=== PATIENT | male | born 1945 | race Caucasian/White ===

== ENCOUNTER 2016-11-24 09:33 | Emergency (ER) | payer MEDICARE, OTHER ==
--- NOTE | 2016-11-24 11:13 | ERNOTE ---
Lower Extremity HPI - Narrative Date of Service: 11/24/16 - General Lower Extremities Pain: leg: right Time Seen by Provider: 11/24/16 11:13 Source: patient, RN notes reviewed Exam Limitations: other - poor historian - Immun/Allergies/Home Medications Immunizations: IMMUNIZATION HX Immunizations Up to Date Yes History of Influenza Vaccine Yes Hx Pneumococcal Vaccination Yes Allergies/Adverse Reactions: Allergies Allergy/AdvReac Type Severity Reaction Status Date / Time No Known Allergies Allergy Verified 12/28/15 18:36 Home Medications: HOME MEDICATIONS Furosemide [Lasix] 40 mg PO BID 12/28/15 [Last Taken 12/28/15 08:00] Metoprolol Tartrate [Lopressor] 50 mg PO BID 12/28/15 [Last Taken 12/28/15 08:00 ] Sertraline HCl [Zoloft] 100 mg PO DAILY 12/28/15 [Last Taken 12/27/15] Simvastatin [Zocor] 10 mg PO HS 12/28/15 [Last Taken 12/27/15] Spironolactone [Aldactone] 50 mg PO DAILY 12/28/15 [Last Taken 12/28/15 08:00] Zolpidem Tartrate 10 mg PO HS 12/28/15 [Last Taken Unknown] Dabigatran Etexilate Mesylate [Pradaxa] 150 mg PO BID #60 capsule 12/29/15 [ Last Taken Unknown] - History of Present Illness Narrative: 71 y/o male ambulatory to the ED for right calf pain and swelling that began 5 days ago. He had fallen a few days prior and attributed to symptoms to injury as he did sustain an abrasion to the right calf. He denies any fever or chills. According to his medication list, he is to be on Pradaxa for Afib, but he stopped taking it some time ago when he read the side effects and got scared. [facility]. Date (Duration): 11/19/16 Method of Injury: Reports: fell Reason for Fall: Reports: unknown Loss of Consciousness: Reports: no loss of consciousness Other Injuries: Reports: none Subsequent Symptoms: Denies: sensory loss, numbness, motor loss Prior Treament: Denies: similar symptoms before Review of Systems - Review of Systems Constitutional: Present: fatigue. Absent: recent illness, fever, chills EYE: Present: no symptoms reported ENT: Present: no symptoms reported Respiratory: Absent: shortness of breath, cough Cardiology: Present: edema. Absent: chest pain, palpitations, syncope Gastrointestinal/Abdominal: Absent: nausea, vomiting, abdominal pain Genitourinary: Present: no symptoms reported Musculoskeletal: Present: muscle pain. Absent: joint pain, joint swelling Skin: Present: lesions. Absent: rash, change in color Neurological: Absent: dizziness/light-headedness, weakness, numbness Endocrine: Present: no symptoms reported Hematologic/Lymphatic: Absent: easy bruising, easy bleeding Psych: Present: no symptoms reported - Patient's Past Medical History Patient History - Medical: Arthritis, Obesity Patient History - Cardiac/Respiratory: Atrial Fibrillation, Hypertension, Hyperlipidemia, CPAP/BiPAP Home Use, Sleep Apnea Patient History - Cancer: Skin Patient History - Surgical Procedures: Appendectomy, Cholecystectomy, Total Hip Replacement, T & A, Other - Family History Mother Family History - Medical: , No pertinent hx Family History - Cardiac/Respiratory: CVA/Stroke Father Family History - Medical: , No pertinent hx Family History - Cardiac/Respiratory: CVA/Stroke - Social History Living Situations: spouse Smoking Status: Former smoker Alcohol Use: none Drug Use: none Physical Exam - Physical Exam General Appearance: Present: alert, no apparent distress, obese, other - somewhat disheveled Neck: Present: normal inspection, nontender, supple Respiratory: Present: no respiratory distress, normal breath sounds, no accessory muscle use, lungs clear Cardiovascular/Chest: Present: regular rate, rhythm, no murmur, normal peripheral pulses Extremity Exam: Present: normal range of motion, pedal edema, calf tenderness - Right, extremity edema - bilateral lower legs, ankles, feet but markedly worse in right calf. Absent: joint redness, joint swelling Neurological Exam: Present: alert, oriented, normal mood/affect, no motor/ sensory deficits Skin Exam: Present: normal color, warm/dry, other - small abrasion with mild ecchymosis to right calf ED Progress - Results and Orders Patient's Lab Results:: I have reviewed the patient's lab results. - Vital Signs Patient's Vital Signs:: I have reviewed the patient's vital signs. Vital Signs: Vital Signs 11/24/16 10:16 Temperature 36.4 C L Pulse Rate 62 Respiratory 14 Rate Blood Pressure 160/106 O2 Sat by Pulse 95 Oximetry - X-Ray X-Ray #1 X-Ray: tibula/fibula Interpretation: Reviewed by me X-ray Comments: Tibia/Fibula 2 View RT * No definable fracture lucency or cortical discontinuity. Degenerative changes of the right knee and ankle suggested. Diffuse skin and soft tissue swelling noted throughout the right lower leg. No evidence for soft tissue gas or radiopaque foreign body. IMPRESSION: 1. No acute fracture. 2. Diffuse skin and soft tissue swelling. Electronically signed by Dustin Hagen M.D.. - CT/Ultrasound CT/Ultrasound Narrative: US of right lower extremity shows no sonographic evidence of DVT - Progress/Reassessment Chief Complaint: Lower Extremity Pain/ Injury Progress:: Unchanged Plan - Plan Plan: Discussed lab and xray results. No elevation in WBC or redness in leg to support cellulitis, US negative for DVT, pain and swelling are likely d/t his fall. Will WOODROW wrap right lower leg. Discussed conservative treatment and f/u if symptoms worsen. Departure Clinical Impression: Right calf pain - Departure Disposition: Home self-care Condition: Good Instructions: Contusion, [id number] Additional Instructions: WOODROW wrap for support/compression Heat to sore areas Elevate leg whenever possible Tylenol for pain Follow up if symptoms worsen
[2016-11-24 11:34] LABS: Hematocrit 50.6 % (42.0-52.0); Mean Cell Volume 88.8 fl (78-100); Mean Corpuscular Hemoglobin 29.8 pg (27-31); Mean Corpuscular Hgb Conc 33.6 g/dl (32-36); Mean Platelet Volume 9.6 fl (6.0-9.5); Neutrophil # 6.9 K/mm3 (1.3-6.0); Neutrophil % 70.9 % (42-75.0); Platelet Count 169 K/mm3 (150-450); Red Cell Distribution Width 12.8 % (11.5-14.0); White Blood Count 9.8 K/mm3 (4.0-10.5)
[2016-11-24 11:48] LABS: INR 1.09 INR (0.90-1.10); Partial Thrombolplastin Time 26.8 Seconds (24-32); Prothrombin Time (Patient) 11.3 Seconds (9.4-11.4)
[2016-11-24 11:53] LABS: Albumin * 3.9 gm/dl (3.4-5.0); Anion Gap 12.4 mmol/L (6.8-13.8); BUN/Creatinine Ratio 12.5 (9.0-21.6); Bilirubin, Total 0.9 mg/dL (0.0-1.1); Ca. Corrected For Albumin 9.3 mg/dL (8.4-10.2); Calcium * 9.5 mg/dL (7.9-10.9); Carbon Dioxide 28.1 mmol/L (24-32.6); Potassium 4.5 mmol/L (3.4-4.6); Total Protein 7.5 gm/dL (6.2-8.2)
[2016-11-24 12:31] VITALS: BP 138/72
== END 2016-11-24 12:29 | disposition home or self-care (01) ==
LOC: ER 09:33
DX: M79.661 Pain in right lower leg (principal); Z85.828 Personal history of other malignant neoplasm of skin; Z87.891 Personal history of nicotine dependence

== ENCOUNTER 2017-02-26 16:24 | Emergency (ER) | payer MEDICARE, OTHER ==
--- NOTE | 2017-02-26 17:15 | ERNOTE ---
Lower Extremity HPI - Narrative Date of Service: 02/26/17 - General Lower Extremities Pain: hip: right, knee: left Time Seen by Provider: 02/26/17 16:46 Source: patient Exam Limitations: no limitations - Immun/Allergies/Home Medications Immunizations: IMMUNIZATION HX Immunizations Up to Date Yes History of Influenza Vaccine Yes Hx Pneumococcal Vaccination Yes Allergies/Adverse Reactions: Allergies Allergy/AdvReac Type Severity Reaction Status Date / Time No Known Allergies Allergy Verified 02/26/17 16:43 Home Medications: HOME MEDICATIONS Furosemide [Lasix] 40 mg PO BID 12/28/15 [Last Taken 12/28/15 08:00] Metoprolol Tartrate [Lopressor] 50 mg PO BID 12/28/15 [Last Taken 12/28/15 08:00 ] Sertraline HCl [Zoloft] 100 mg PO DAILY 12/28/15 [Last Taken 12/27/15] Simvastatin [Zocor] 10 mg PO HS 12/28/15 [Last Taken 12/27/15] Spironolactone [Aldactone] 50 mg PO DAILY 12/28/15 [Last Taken 12/28/15 08:00] Zolpidem Tartrate 10 mg PO HS 12/28/15 [Last Taken Unknown] Minoxidil 10 mg PO DAILY 02/26/17 [Last Taken Unknown] - History of Present Illness Narrative: patient states his legs are weaker than normal. Patient states that this has been accumulating for several weeks. Patient states he is more tired since he has started PT. Date (Duration): 02/26/17 Occurred: last week Location of Incident: home Method of Injury: Reports: no apparent injury Loss of Consciousness: Reports: no loss of consciousness Modifying Factors - (Improves): Reports: immobilization Modifying Factors - (Worsens): Reports: movement Associated Symptoms: Reports: other injuries - states his walking is unsteady more than normal Other Injuries: Reports: none Review of Systems - Review of Systems Constitutional: Present: malaise EYE: Present: no symptoms reported ENT: Present: no symptoms reported Respiratory: Present: no symptoms reported Cardiology: Present: no symptoms reported Gastrointestinal/Abdominal: Present: no symptoms reported Genitourinary: Present: no symptoms reported Musculoskeletal: Present: See HPI Skin: Present: no symptoms reported Neurological: Present: See HPI, weakness Endocrine: Present: no symptoms reported Hematologic/Lymphatic: Present: no symptoms reported Psych: Present: no symptoms reported - Patient's Past Medical History Patient History - Medical: Arthritis, Obesity Patient History - Cardiac/Respiratory: Hypertension, Hyperlipidemia, CPAP/BiPAP Home Use, Sleep Apnea Patient History - Cancer: Skin Patient History - Surgical Procedures: Appendectomy, Cholecystectomy, Total Hip Replacement, T & A, Other Patient History - Other: None - Family History Mother Family History - Medical: , No pertinent hx Family History - Cardiac/Respiratory: CVA/Stroke Father Family History - Medical: , No pertinent hx Family History - Cardiac/Respiratory: CVA/Stroke - Social History Living Situations: home Abuse History: No History of abuse Psych History: Current tx/ever been on anti-depressants or anti-anxiety meds Alcohol Use: none Drug Use: none - Immunizations Immunizations Up to Date: Yes Hx Pneumococcal Vaccination: Yes History of Influenza Vaccine: Yes Physical Exam - Physical Exam Narrative: Well-nourished 71-year-old male presents to emergency room for being tired after physical therapy and also states that his legs feel more weak than normal. States sometimes he also has muscle cramps on the days he has physical therapy. General Appearance: Present: wd/wn, alert, no apparent distress Eye Exam: Normal inspection: bilateral Ears, Nose, Throat: Present: normal ENT inspection, normal pharynx Neck: Present: normal inspection, nontender Respiratory: Present: no respiratory distress, normal breath sounds, lungs clear Cardiovascular/Chest: Present: regular rate, rhythm, normal peripheral pulses Peripheral Pulses: N=norm/S=strong/W=weak/B=bound/A=absent: Radial (R): Normal, Radial (L): Normal, Dorsalis-pedis (R): Normal, Dorsalis-pedis (L): Normal Gastrointestinal/Abdominal: Present: normal bowel sounds, nontender, soft Back Exam: Present: normal inspection, normal range of motion, no vertebral tenderness Extremity Exam: Present: normal except -, extremity edema - 3+ Neurological Exam: Present: alert, oriented, 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 Results and Orders: no acute findings - Vital Signs Vital Signs: Vital Signs 02/26/17 16:38 Temperature 36.9 C Pulse Rate 60 Respiratory 14 Rate Blood Pressure 150/80 O2 Sat by Pulse 95 Oximetry - EKG EKG read: Reviewed by me EKG Comments: interp by 1ED attending. no acute findings - CT/Ultrasound CT/Ultrasound Narrative: Findings: There is no acute intracranial hemorrhage, midline shift or mass effect detected. No hydrocephalus. Cisterns are unremarkable. There is atrophy. There is chronic microvascular ischemic disease change of the white matter. No depressed calvarial fractures. There is sinus disease. Impression: No acute intracranial process detected. Preliminary report was delivered to the emergency room via the [facility] teleradiology service at 7:50 PM on February 26, 2017. Electronically signed by Rashad Clinton M.D.. - Progress/Reassessment Chief Complaint: Lower Extremity Pain/ Injury Progress:: Unchanged Departure Clinical Impression: Exercise-induced leg cramps - Departure Disposition: Home self-care Condition: Stable Instructions: Leg Cramps Additional Instructions: Any previous home medications as directed. Follow up with her primary care physician regarding your leg cramps and weakness. Follow up with your physical therapist as well. The emergency room if any new symptoms arise or symptoms persist. Referrals: Richmond Thomas [Primary Care Provider] -
--- OUTSIDE RECORDS SUMMARY | 2017-02-26 17:16 | XMS REPORT | Continuity of Care Document ---
:1945 Author Organization [facility] ([facility]) Address [address] [place] [address] Phone [phone] Care Team Providers Name Role Phone Ctr, [facility] Med Primary Care Provider [phone] Source Comments This disclosure is being made pursuant to the Care Everywhere program, applicable federal and state laws, and may not contain all informaitonavailable regarding this patient.[facility] ([facility]) Active Allergies and Adverse Reactions No Known Allergies Current Medications Prescription Sig. Disp. Refills Start Date End Date Status metoPROLol succinate Take 50 mg by mouth Active 100 mg XL tablet 2 times daily. simvastatin 10 mg Take 25 mg by mouth Active tablet every evening. SERTraline 50 mg Take 100 mg by Active tablet mouth daily. lisinopril 10 mg Take 10 mg by mouth Active tablet daily. aspirin 81 mg EC Take 81 mg by mouth Active tablet daily. amoxicillin 500 mg Take 500 mg by Active capsule mouth 3 times daily. dabigatran (praDAXA) Take 150 mg by Active 150 mg capsule mouth 2 times daily. furosemide 40 mg Take 40 mg by mouth Active tablet daily. spironolactone 25 mg Take 25 mg by mouth Active tablet daily. zolpiDEM 10 mg tablet Take by mouth at Active bedtime as needed. HYDROcodone-acetamino Take 1 tablet by 30 tablet 0 08/25/2016 Active phen 5-325 mg per mouth every 4 hours tablet as needed for Pain. DO NOT EXCEED 3,000 MG ACETAMINOPHEN PER DAY FROM ALL SOURCES chlorhexidine 0.12 % Rinse with 10 ML 473 mL 0 08/25/2016 Active oral rinse for 30 seconds twice daily for 10 days. Swish and spit out excess. Nothing by mouth for 30 minutes. Active Problems Problem Noted Date Dental caries 08/04/2016 Social History Tobacco Use Types Packs/Day Years Used Date Light Tobacco Smoker Cigarettes 0.25 50 Smokeless Tobacco: Never Used Tobacco Cessation:Ready to Quit: No; Counseling Given: No Comments: Last Filed Vital Signs Vital Sign Reading Time Taken Blood Pressure 167/90 08/25/2016 8:55 AM CDT Pulse 61 08/25/2016 8:55 AM CDT Temperature 36.7 C (98.1 F) 08/25/2016 8:55 AM CDT Respiratory Rate 18 08/04/2016 11:22 AM CDT Height 1.88 m (6' 2") 08/25/2016 8:55 AM CDT Weight 136.7 kg (301 lb 5.9 oz) 08/25/2016 8:55 AM CDT Body Mass Index 38.68 08/25/2016 8:55 AM CDT Oxygen Saturation - - Plan of Care Health Maintenance Due Date Last Done Comments HCV Screening 1945 Hepatitis B Vaccine (1 of 3 - Primary Series) 1945 Tdap Vaccine 1958 Lipid Disorder Screening 1965 Td Vaccine 1965 Colonoscopy 05/08/1997 Prostate Cancer Screening 1997 Zoster Vaccine 2007 Pneumococcal Vaccine (1 of 2 - PCV13) 2012 Influenza Vaccine: Seasonal (#1) 06/02/2016 Results from Last 3 Months Not on file
[2017-02-26 17:33] VITALS: BP 134/68
[2017-02-26 17:33] LABS: Hematocrit 48.9 % (42.0-52.0); Hemoglobin 16.3 gm/dL (13.5-18.0); Mean Cell Volume 88.6 fl (78-100); Mean Corpuscular Hemoglobin 29.5 pg (27-31); Mean Corpuscular Hgb Conc 33.3 g/dl (32-36); Mean Platelet Volume 9.7 fl (6.0-9.5); Neutrophil # 6.6 K/mm3 (1.3-6.0); Neutrophil % 71.1 % (42-75.0); Platelet Count 187 K/mm3 (150-450); Red Blood Count 5.52 M/mm3 (4.7-6.0); Red Cell Distribution Width 12.7 % (11.5-14.0); White Blood Count 9.3 K/mm3 (4.0-10.5)
[2017-02-26 18:05] LABS: Albumin * 3.8 gm/dl (3.4-5.0); BUN/Creatinine Ratio 20.4 (9.0-21.6); Bilirubin, Total 0.6 mg/dL (0.0-1.1); Ca. Corrected For Albumin 9.2 mg/dL (8.4-10.2); Calcium * 9.4 mg/dL (7.9-10.9); Carbon Dioxide 23.9 mmol/L (24-32.6); Potassium 3.9 mmol/L (3.4-4.6); Total Protein 7.4 gm/dL (6.2-8.2)
[2017-02-26 18:08] LABS: Urine Bilirubin Negative (NEGATIVE); Urine Blood Negative /ul (NEGATIVE); Urine Ketone Negative (NEGATIVE); Urine Nitrite Negative (NEGATIVE); Urine Protein Negative (NEGATIVE); Urine Specific Gravity 1.025 SP.GR. (1.005-1.030); Urine Urobilinogen Normal (NORMAL)
[2017-02-26 18:09] LABS: Troponin I 0.024 ng/ml (0.00-0.10)
[2017-02-26 18:20] LABS: Cocaine Ur Negative (NEGATIVE); Urine Barbiturate Negative (NEGATIVE); Urine Benzodiazepines Negative (NEGATIVE); Urine Opiates Negative (NEGATIVE); Urine PCP Negative (NEGATIVE); Urine THC Negative (NEGATIVE)
[2017-02-26 18:22] LABS: Urine Appearance Clear; Urine Bacteria None Seen; Urine Color Yellow; Urine RBC None Seen /hpf (0-5); Urine WBC None Seen /hpf (0-5)
== END 2017-02-26 20:26 | disposition home or self-care (01) ==
LOC: ER 16:24
DX: R25.2 Cramp and spasm (principal)

== ENCOUNTER 2017-05-04 11:44 | Emergency (ER) | payer MEDICARE, OTHER ==
[2017-05-04 13:04] VITALS: BP 154/86
--- NOTE | 2017-05-04 13:42 | ERNOTE ---
Integumentary HPI - Narrative Date of Service: 05/04/17 - General Presenting Symptoms: rash Time Seen by Provider: 05/04/17 13:05 Source: patient, RN notes reviewed Exam Limitations: no limitations - Immun/Allergies/Home Medications Immunizations: IMMUNIZATION HX Immunizations Up to Date Yes History of Influenza Vaccine Yes Hx Pneumococcal Vaccination Yes Allergies/Adverse Reactions: Allergies Allergy/AdvReac Type Severity Reaction Status Date / Time No Known Allergies Allergy Verified 05/04/17 11:52 Home Medications: HOME MEDICATIONS Furosemide [Lasix] 40 mg PO BID 12/28/15 [Last Taken 12/28/15 08:00] Metoprolol Tartrate [Lopressor] 50 mg PO BID 12/28/15 [Last Taken 12/28/15 08:00 ] Sertraline HCl [Zoloft] 100 mg PO DAILY 12/28/15 [Last Taken 12/27/15] Simvastatin [Zocor] 10 mg PO HS 12/28/15 [Last Taken 12/27/15] Spironolactone [Aldactone] 50 mg PO DAILY 12/28/15 [Last Taken 12/28/15 08:00] Zolpidem Tartrate 10 mg PO HS 12/28/15 [Last Taken Unknown] Minoxidil 10 mg PO DAILY 02/26/17 [Last Taken Unknown] Cephalexin 500 mg PO QID #40 tab 05/04/17 [Last Taken Unknown] - History of Present Illness Narrative: 71 y/o male ambulatory to the ED for insect bites on his legs. The appeared 9 days ago after he had been mowing. He reports itching, and infection due to scratching to lesions. He also has a lesion on his chin that has been a recurrent problem since 1977. He has seen numerous specialists for this without any definitive diagnosis. He reports that it only flares up in the summer when he is out in the heat. It responds well to Keflex. Location: Reports: lower extremity Quality: Reports: itching Severity: moderate Exposure: Reports: insect bite/spider Associated Symptoms: Reports: rash, swelling/mass/lumps. Denies: hives, edema, fever, malaise Prior Treatment: Denies: recently seen, currently on antibiotics Review of Systems - Review of Systems Constitutional: Absent: recent illness, fever, chills, malaise EYE: Present: no symptoms reported ENT: Absent: nose congestion, sore throat Respiratory: Absent: shortness of breath, cough Cardiology: Present: edema. Absent: chest pain Gastrointestinal/Abdominal: Absent: nausea, abdominal pain Genitourinary: Present: no symptoms reported Musculoskeletal: Absent: joint pain, joint swelling Skin: Present: rash, lesions, lumps. Absent: change in color Neurological: Absent: headache, dizziness/light-headedness, weakness, numbness Endocrine: Present: no symptoms reported Hematologic/Lymphatic: Present: no symptoms reported Psych: Present: no symptoms reported - Patient's Past Medical History Patient History - Medical: Arthritis, Obesity Patient History - Cardiac/Respiratory: Hypertension, Hyperlipidemia, CPAP/BiPAP Home Use, Sleep Apnea Patient History - Cancer: Skin Patient History - Surgical Procedures: Appendectomy, Cholecystectomy, Total Hip Replacement, T & A, Other Patient History - Other: None - Family History Mother Family History - Medical: , No pertinent hx Family History - Cardiac/Respiratory: CVA/Stroke Father Family History - Medical: , No pertinent hx Family History - Cardiac/Respiratory: CVA/Stroke - Social History Living Situations: home Abuse History: No History of abuse Psych History: Current tx/ever been on anti-depressants or anti-anxiety meds Alcohol Use: none Drug Use: none - Immunizations Immunizations Up to Date: Yes Hx Pneumococcal Vaccination: Yes History of Influenza Vaccine: Yes Physical Exam - Physical Exam General Appearance: Present: wd/wn, alert, no apparent distress, obese Respiratory: Present: no respiratory distress, normal breath sounds, no accessory muscle use, lungs clear Cardiovascular/Chest: Present: regular rate, rhythm, no murmur, normal peripheral pulses Extremity Exam: Present: normal range of motion, extremity edema - mild to bilateral lower legs, chronic Neurological Exam: Present: alert, oriented, normal mood/affect, no motor/ sensory deficits Skin Exam: Present: normal color, warm/dry, other - moderate papular eruption to bilateral legs with lesions in various stages of healing, mild inflammation surrouding some of the lesions. Erythematous, indurated area on chin. ED Progress - Vital Signs Patient's Vital Signs:: I have reviewed the patient's vital signs. Vital Signs: Vital Signs 05/04/17 05/04/17 11:50 13:00 Temperature 36.6 C 36.6 C Pulse Rate 66 57 L Respiratory 12 18 Rate Blood Pressure 177/132 154/86 O2 Sat by Pulse 94 94 Oximetry - Progress/Reassessment Chief Complaint: Insect Bite Progress:: Unchanged Departure Clinical Impression: Insect bites of multiple sites, infected Cellulitis Qualifiers: Site of cellulitis: face Qualified Code(s): L03.211 - Cellulitis of face - Departure Disposition: Home Follow Up Needed Condition: Stable Instructions: Insect Bite Additional Instructions: Use Cortisone 10 cream alternating with Benadryl cream for itching Return if symptoms worsen Prescriptions: Cephalexin 500 mg PO QID #40 tab
== END 2017-05-04 13:36 | disposition home or self-care (01) ==
LOC: ER 11:44
DX: S80.862A Insect bite (nonvenomous), left lower leg, initial encounter (principal); S80.861A Insect bite (nonvenomous), right lower leg, initial encounter; W57.XXXA Bitten or stung by nonvenomous insect and other nonvenomous arthropods, initial encounter; Y93.H9 Activity, other involving exterior property and land maintenance, building and construction; Y92.9 Unspecified place or not applicable; L03.211 Cellulitis of face; M19.90 Unspecified osteoarthritis, unspecified site; I10 Essential (primary) hypertension; E78.5 Hyperlipidemia, unspecified; Z85.828 Personal history of other malignant neoplasm of skin

== ENCOUNTER 2017-08-13 14:16 | Emergency (ER) | payer MEDICARE, OTHER ==
[2017-08-13] MEDS ORDERED: diphenhydrAMINE HCL 50 MG/ML VIAL IM ONE (14:56)
[2017-08-13] MEDS ORDERED: NORMAL SALINE 1,000 ML IV ONE (14:56)
[2017-08-13] MEDS ORDERED: METOCLOPRAMIDE HCL 5 MG/ML VIAL IV ONE (14:56)
[2017-08-13] MEDS ORDERED: KETOROLAC TROMETHAMINE 30 MG/ML VIAL IV ONE (14:56)
[2017-08-13] MEDS ORDERED: diphenhydrAMINE HCL 50 MG/ML VIAL ONE (15:01)
[2017-08-13] MEDS ORDERED: METOCLOPRAMIDE HCL 5 MG/ML VIAL ONE (15:01)
[2017-08-13] MEDS ORDERED: KETOROLAC TROMETHAMINE 30 MG/ML VIAL ONE (15:01)
[2017-08-13 15:08] LABS: Hematocrit 47.5 % (42.0-52.0); Hemoglobin 16.6 gm/dL (13.5-18.0); Mean Cell Volume 86.4 fl (78-100); Mean Corpuscular Hemoglobin 30.2 pg (27-31); Mean Corpuscular Hgb Conc 34.9 g/dl (32-36); Mean Platelet Volume 9.5 fl (6.0-9.5); Neutrophil # 8.6 K/mm3 (1.3-6.0); Neutrophil % 77.4 % (42-75.0); Platelet Count 168 K/mm3 (150-450); Red Cell Distribution Width 12.6 % (11.5-14.0); White Blood Count 11.1 K/mm3 (4.0-10.5)
[2017-08-13] MEDS ORDERED: diphenhydrAMINE HCL 50 MG/ML VIAL IV ONE (15:16)
[2017-08-13 15:24] LABS: Albumin * 3.7 gm/dl (3.4-5.0); Anion Gap 14.1 mmol/L (6.8-13.8); BUN/Creatinine Ratio 13.6 (9.0-21.6); Bilirubin, Total 1.1 mg/dL (0.0-1.1); Calcium * 9.1 mg/dL (7.9-10.9); Carbon Dioxide 23.8 mmol/L (24-32.6); Potassium 3.9 mmol/L (3.4-4.6)
--- NOTE | 2017-08-13 16:00 | ERNOTE ---
Medical Problem HPI - Narrative Date of Service: 08/13/17 - General Chief Complaint: Nausea/Vomiting Time Seen by Provider: 08/13/17 14:46 Source: patient, family, RN notes reviewed Exam Limitations: no limitations - Immun/Allergies/Home Medications Immunizations: IMMUNIZATION HX Immunizations Up to Date Yes History of Influenza Vaccine Yes Hx Pneumococcal Vaccination Yes Allergies/Adverse Reactions: Allergies No Known Allergies Allergy (Verified 08/13/17 14:22) Home Medications: HOME MEDICATIONS Furosemide [Lasix] 40 mg PO BID 12/28/15 [Last Taken 12/28/15 08:00] Metoprolol Tartrate [Lopressor] 50 mg PO BID 12/28/15 [Last Taken 12/28/15 08:00 ] Sertraline HCl [Zoloft] 100 mg PO DAILY 12/28/15 [Last Taken 12/27/15] Simvastatin [Zocor] 40 mg PO HS 12/28/15 [Last Taken 12/27/15] Spironolactone [Aldactone] 50 mg PO DAILY 12/28/15 [Last Taken 12/28/15 08:00] Zolpidem Tartrate 5 mg PO HS 12/28/15 [Last Taken Unknown] Minoxidil 10 mg PO DAILY 02/26/17 [Last Taken Unknown] Cephalexin 500 mg PO QID #40 tab 05/04/17 [Last Taken Unknown] Lisinopril [Zestril] 10 mg PO DAILY 08/13/17 [Last Taken Unknown] Meloxicam [Mobic] 15 mg PO DAILY 08/13/17 [Last Taken Unknown] Ondansetron [Zofran Odt] 8 mg PO Q8H PRN #12 tab 08/13/17 [Last Taken Unknown] - History of Present History Narrative: 72 year old male brought the the ED by his for a headache and vomiting that began this morning. The patient takes diuretics and has been hypokalemic in the past. His is concerned that this may be the issue again. He states that he does not usually have headaches and has not had a headache this severe in many years. He is also have lower abdominal pain. He denies any sick contacts. Date (Duration): 08/13/17 Review of Systems - Review of Systems Constitutional: Present: fatigue, malaise. Absent: recent illness, fever, chills EYE: Absent: eye pain, vision changes ENT: Absent: nose congestion, nasal drainage, sore throat Respiratory: Absent: shortness of breath, cough Cardiology: Present: edema. Absent: chest pain Gastrointestinal/Abdominal: Present: nausea, vomiting, abdominal pain. Absent: diarrhea, constipation Genitourinary: Absent: dysuria, hematuria, decreased urinary output Musculoskeletal: Absent: muscle pain, joint pain Skin: Absent: rash, lesions Neurological: Present: headache. Absent: dizziness/light-headedness Endocrine: Present: no symptoms reported Hematologic/Lymphatic: Present: no symptoms reported Psych: Present: no symptoms reported - Patient's Past Medical History Patient History - Medical: Arthritis, Obesity Patient History - Cardiac/Respiratory: Hypertension, Hyperlipidemia, CPAP/BiPAP Home Use, Sleep Apnea Patient History - Cancer: Skin Patient History - Surgical Procedures: Appendectomy, Cholecystectomy, Total Hip Replacement, T & A, Other Patient History - Other: None - Family History Mother Family History - Medical: , No pertinent hx Family History - Cardiac/Respiratory: CVA/Stroke Father Family History - Medical: , No pertinent hx Family History - Cardiac/Respiratory: CVA/Stroke - Social History Living Situations: home Abuse History: No History of abuse Psych History: Current tx/ever been on anti-depressants or anti-anxiety meds - Immunizations Immunizations Up to Date: Yes Hx Pneumococcal Vaccination: Yes History of Influenza Vaccine: Yes Physical Exam - Physical Exam General Appearance: Present: wd/wn, alert, mild distress, obese Head Exam: Present: normal inspection, no evidence of injury Eye Exam: Normal inspection: bilateral, PERRL: bilateral Ears, Nose, Throat: Present: normal ENT inspection, normal pharynx Neck: Present: normal inspection, nontender, supple Respiratory: Present: no respiratory distress, normal breath sounds, no accessory muscle use, lungs clear Cardiovascular/Chest: Present: regular rate, rhythm, no murmur, normal peripheral pulses Gastrointestinal/Abdominal: Present: normal bowel sounds, nondistended, soft, tenderness - mild, throughout lower abdomen Neurological Exam: Present: alert, oriented, normal mood/affect, no motor/ sensory deficits Skin Exam: Present: normal color, warm/dry ED Progress - Results and Orders Patient's Lab Results:: I have reviewed the patient's lab results. - Vital Signs Patient's Vital Signs:: I have reviewed the patient's vital signs. Vital Signs: Vital Signs 08/13/17 14:19 Temperature 36.3 C L Pulse Rate 91 Respiratory 12 Rate Blood Pressure 140/94 O2 Sat by Pulse 92 Oximetry - X-Ray X-Ray #1 X-Ray: abdomen Interpretation: Reviewed by me X-ray Comments: No acute abdominal pathology noted - CT/Ultrasound CT/Ultrasound Narrative: CT Head shows no evidence of any intracranial process - Progress/Reassessment Chief Complaint: Nausea/Vomiting Progress:: Improved Departure Clinical Impression: Headache Qualifiers: Headache type: unspecified Headache chronicity pattern: acute headache Intractability: not intractable Qualified Code(s): R51 - Headache Nausea and vomiting Qualifiers: Vomiting type: unspecified Vomiting Intractability: non-intractable Qualified Code(s): R11.2 - Nausea with vomiting, unspecified - Departure Disposition: Home self-care Condition: Good Instructions: Viral Gastroenteritis, Adult, [id number] Additional Instructions: Liquids as discussed, advance diet as tolerated Tylenol for headache Return for new/worsening symptoms Prescriptions: Ondansetron [Zofran Odt] 8 mg PO Q8H PRN #12 tab PRN Reason: Nausea
[2017-08-13 18:47] VITALS: BP 135/87
== END 2017-08-13 16:30 | disposition home or self-care (01) ==
LOC: ER 14:16
DX: R51 Headache (principal); R11.2 Nausea with vomiting, unspecified; M19.90 Unspecified osteoarthritis, unspecified site; I10 Essential (primary) hypertension; E78.5 Hyperlipidemia, unspecified; Z85.828 Personal history of other malignant neoplasm of skin

== ENCOUNTER 2019-10-03 11:09 | Inpatient (IN) ==
[2019-10-03] MEDS ORDERED: ALBUTEROL SULFATE/IPRATROPIUM 3 ML NEBU IH ONE (11:29)
[2019-10-03 11:44] LABS: Hematocrit 47.9 % (42.0-52.0); Hemoglobin 16.4 gm/dL (13.5-18.0); Mean Cell Volume 89.7 fl (78-100); Mean Corpuscular Hemoglobin 30.7 pg (27-31); Mean Corpuscular Hgb Conc 34.2 g/dl (32-36); Mean Platelet Volume 9.2 fl (8-11.3); Neutrophil # 5.5 K/mm3 (1.3-6.0); Platelet Count 173 K/mm3 (150-450); Red Blood Count 5.34 M/mm3 (4.7-6.0); Red Cell Distribution Width 12.7 % (11.5-14.0); White Blood Count 7.7 K/mm3 (4.0-10.5)
[2019-10-03 12:06] LABS: ALT 30 U/L (19-67); AST 25 U/L (0-48); Albumin * 3.6 gm/dl (3.4-5.0); Alkaline Phosphatase * 88 U/L (50-170); Anion Gap 8.2 mmol/L (6.8-13.8); BNP * 229 pg/mL (5-350); BUN/Creatinine Ratio 13.9 (9.0-21.6); Bilirubin, Total 0.6 mg/dL (0.0-1.1); Blood Urea Nitrogen 15 mg/dL (6-23); Ca. Corrected For Albumin 9.6 mg/dL (8.4-10.2); Calcium * 9.6 mg/dL (7.9-10.9); Carbon Dioxide 33.3 mmol/L (24-32.6); Chloride 102 mmol/L (97-106); Glucose * 143 mg/dL (70-110); Potassium 3.5 mmol/L (3.4-4.6); Sodium 140 mmol/L (132-142); Total Protein 7.5 gm/dL (6.2-8.2)
[2019-10-03 12:07] LABS: Troponin I Less than 0.017 ng/mL (0.00-0.10)
[2019-10-03 14:49] LABS: Urine Bilirubin Negative (NEGATIVE); Urine Blood Negative /ul (NEGATIVE); Urine Ketone Negative (NEGATIVE); Urine Nitrite Negative (NEGATIVE); Urine Protein 15 mg/dL (NEGATIVE); Urine Urobilinogen Normal (NORMAL); Urine pH 5.5 pH (5.0-7.0)
[2019-10-03 14:55] LABS: Urine Appearance Clear (CLEAR); Urine Bacteria None Seen; Urine Color Yellow; Urine RBC None Seen /hpf (0-5); Urine WBC None Seen /hpf (0-5)
[2019-10-03] MEDS ORDERED: FUROSEMIDE 10 MG/ML VIAL IV ONE (15:16)
[2019-10-03] MEDS ORDERED: LEVOFLOXACIN IN DEXTROSE 5 % 500 MG/100 ML BAG IV SCH (15:30)
--- NOTE | 2019-10-03 16:34 | ERNOTE ---
Dyspnea - Date Date of Service: 10/03/19 - General Presenting Symptoms: difficulty of breathing Time Seen by Provider: 10/03/19 11:18 Source: patient, family Exam Limitations: no limitations - Immun/Allergies/Home Medications Immunizations: IMMUNIZATION HX Immunizations Up to Date Yes History of Influenza Vaccine Yes Hx Pneumococcal Vaccination Yes Allergies/Adverse Reactions: Allergies Chiggers Adverse Reaction (Unknown, Uncoded 03/05/19 20:44) Home Medications: HOME MEDICATIONS spironolactone 25 mg tablet 50 mg PO DAILY tab 06/09/18 [Last Taken Unknown] Furosemide [Lasix] 40 mg PO TID 12/20/18 [Last Taken Unknown] Sertraline HCl [Zoloft] 100 mg PO DAILY 02/23/19 [Last Taken Unknown] Albuterol Sulfate [Albuterol Sulfate Hfa] 8.5 gm INHALATION DAILY 03/05/19 [Last Taken Unknown] Beclomethasone Dipropionate [Qvar Redihaler] 10.6 gm INHALATION DAILY 03/05/19 [Last Taken Unknown] metoprolol tartrate 50 mg tablet 12.5 mg PO BID tab 06/16/19 [Last Taken Unknown] sildenafil 100 mg tablet 100 mg PO DAILY PRN 06/16/19 [Last Taken Unknown] simvastatin 40 mg tablet 20 mg PO HS tab 06/16/19 [Last Taken Unknown] Albuterol Sulfate 2.5 mg INHALATION QID #30 vial.neb 08/16/19 [Last Taken Unknown] Albuterol Sulfate [Proventil Hfa] 6.7 gm INHALATION BID 10/03/19 [Last Taken Unknown] Melatonin 3 mg PO HS 10/03/19 [Last Taken Unknown] - History of Present Illness Narrative: patient presents to the ED for SOB via EMS. SOB has been throughout the day today. No fever. Has been coughing. No chest pain. Nothing makes this better or worse. No vomiting. Has not seen anyone else for this. Has bilateral leg swelling. This seems worse than usual. Yellow sputum. Severity: moderate Treatment [employer]: paramedics Initiating event: Reports: none Frequency of episodes: Reports: occassional episodes Modifying Factors - (Improves): Reports: other - biPap Modifying Factors (Worsens): Reports: nothing Associated Symptoms-Dyspnea: Reports: ankle/leg swelling. Denies: fever/chills, chest pain/discomfort, leg/calf pain, tingling of hands/face Prior Treatment: Reports: recently seen. Denies: currently on antibiotics Review of Systems - Review of Systems Constitutional: Absent: fever Respiratory: Present: shortness of breath, cough Cardiology: Absent: chest pain Gastrointestinal/Abdominal: Absent: abdominal pain Genitourinary: Absent: dysuria All Other Systems: All systems neg except as marked Medical History (Last Reviewed 10/03/19 @ 16:23 by Saad Chappell MD) ALS (amyotrophic lateral sclerosis) Atrial flutter Congestive heart failure (CHF) Sleep apnea HLD (hyperlipidemia) HTN (hypertension) Surgical History: Surgical History (Last Reviewed 10/03/19 @ 16:23 by Saad Chappell MD) Hx of prior ablation treatment Status post total hip replacement, right 02/12/2015 Status post total knee replacement, left 09/2004 History of sinus surgery Onset Date: ~1989 Hx of appendectomy Age 11 Hx of cholecystectomy Onset Date: ~1991 Laparoscopic Hx of tonsillectomy Family History: Family History (Last Reviewed 10/03/19 @ 16:23 by Saad Chappell MD) Father Cancer 2007 Alive and well. 2001 had prostate Ca. Mother , Age 79 CVA (cerebral vascular accident) series of CVA Social History: (Last Reviewed 10/03/19 @ 16:23 by Saad Chappell MD) Social History: Marital status: household members: spouse current occupational status: retired Tobacco: Smoking Status: Never smoker Tobacco: How many years used: 13 Alcohol: details: Rare Beer Physical Exam - Physical Exam General Appearance: Present: alert, no apparent distress Head Exam: Present: normal inspection, no evidence of injury Eye Exam: Normal inspection: bilateral, PERRL: bilateral Ears, Nose, Throat: Present: normal ENT inspection Neck: Present: normal inspection Respiratory: Present: no accessory muscle use, lungs clear. Absent: respiratory distress Cardiovascular/Chest: Present: regular rate, rhythm, normal peripheral pulses Gastrointestinal/Abdominal: Present: normal bowel sounds, nontender, soft Back Exam: Absent: CVA tenderness (R), CVA tenderness (L) Extremity Exam: Present: normal inspection, extremity edema Neurological Exam: Present: alert, other - generalized weakness, no acute unilateral focal weakness Skin Exam: Present: normal color, warm/dry Progress - Results and Orders Patient's Lab Results:: I have reviewed the patient's lab results. - Vital Signs Patient's Vital Signs:: I have reviewed the patient's vital signs. Vital Signs: Vital Signs 10/03/19 11:11 10/03/19 11:19 10/03/19 12:16 Temperature 36.7 C Pulse Rate 70 70 61 Respiratory Rate 16 20 Blood Pressure 149/109 H O2 Sat by Pulse Oximetry 92 L 93 10/03/19 12:17 10/03/19 12:26 10/03/19 12:33 Temperature Pulse Rate 61 59 L 60 Respiratory Rate 20 21 H 21 H Blood Pressure O2 Sat by Pulse Oximetry 93 94 10/03/19 12:36 10/03/19 13:18 10/03/19 13:51 Temperature Pulse Rate 60 59 L Respiratory Rate 21 H 17 25 H Blood Pressure 97/61 106/62 O2 Sat by Pulse Oximetry 94 98 95 10/03/19 14:30 10/03/19 14:35 10/03/19 15:26 Temperature Pulse Rate 70 71 70 Respiratory Rate 20 19 70 H Blood Pressure 141/83 141/83 110/60 O2 Sat by Pulse Oximetry 87 L 95 96 10/03/19 16:00 10/03/19 16:07 Temperature Pulse Rate 70 70 Respiratory Rate 21 H Blood Pressure 113/71 113/71 O2 Sat by Pulse Oximetry 95 - EKG EKG #1 EKG: NSR EKG read: Interp. by me EKG Comments: NSR rate 60. PVC. RBBB. No STEMI noted. Non-specific ST/T wave changes. - X-Ray X-Ray #1 X-Ray: chest Interpretation: Interp. by me X-ray Comments: I reviewed official radiology report - CT/Ultrasound CT/Ultrasound Narrative: I reviewed official radiology report for CTA chest. - Progress/Reassessment Chief Complaint: Dyspnea Progress Note-Subjective: 10/03/19 16:31 IV Lasix given, IV ABx, He was hypoxic with any activity and requested prn bipap which helped him. [facility]W Dr Duran who harvinder admit here for pulmonary toilet. Patient and family agreeable. Departure Clinical Impression: SOB (shortness of breath), Hypoxia - Departure Disposition: Still a patient Condition: Fair Referrals: Gallito Preston MD [Primary Care Provider] -
[2019-10-03] MEDS ORDERED: METHYLPREDNISOLONE SOD SUCC/PF 40 MG/ML VIAL IV ONE (17:39)
--- NOTE | 2019-10-03 17:44 | HP ---
Chief Complaint - Chief Complaint Date of Service: 10/03/19 Time of Service: 17:44 Chief Complaint: Shortness of breath, increase mucus production History of Present Illness: Nick is a 74 yo male with COPD and ALS. He reports that about a month ago he was on antibiotics and steroids for pneumonia. He improved and felt better but never completely got over the infection. He reports in the last few days he has had increased sputum and shortness of breath. He denies change in medications, activity, or diet. He reports watching his sodium intake. He denies fever or chills. His reports that this morning his lips were blue but then he coughed up a good sized amount of sputum and he has improved since that time. Medical History (Last Reviewed 10/03/19 @ 16:52 by Zahra Sutherland RN) ALS (amyotrophic lateral sclerosis) Atrial flutter Congestive heart failure (CHF) Sleep apnea HLD (hyperlipidemia) HTN (hypertension) Surgical History: Surgical History (Last Reviewed 10/03/19 @ 16:52 by Zahra Sutherland RN) Hx of prior ablation treatment Status post total hip replacement, right 02/12/2015 Status post total knee replacement, left 09/2004 History of sinus surgery Onset Date: ~1989 Hx of appendectomy Age 11 Hx of cholecystectomy Onset Date: ~1991 Laparoscopic Hx of tonsillectomy Family History: Family History (Last Reviewed 10/03/19 @ 16:52 by Zahra Sutherland RN) Father Cancer 2007 Alive and well. 2002 had prostate Ca. Mother , Age 79 CVA (cerebral vascular accident) series of CVA Social History: (Last Reviewed 10/03/19 @ 16:23 by Saad Chappell MD) Social History: Marital status: household members: spouse current occupational status: retired Tobacco: Smoking Status: Never smoker Tobacco: How many years used: 13 Alcohol: details: Rare Beer Review Of Systems (GEN) - Review of Systems Generalized/Overall Review: Present: Weakness, Malaise, Fatigue. Absent: C hills, Fever EENTM: Present: No Symptoms Reported Respiratory: Present: Cough, Shortness of Breath, Wheezing Cardiac: Absent: Chest Pain, Edema, Palpitations, Syncope Abdominal: Absent: Nausea, Vomiting Genitourinary: Present: No Symptoms Reported Musculoskeletal: Present: No Symptoms Reported Neurological: Present: No Symptoms Reported Skin: Present: No Symptoms Reported Endocrine: Present: No Symptoms Reported Immunizations: IMMUNIZATION HX Immunizations Up to Date Yes History of Influenza Vaccine Yes Hx Pneumococcal Vaccination Yes Allergies/Adverse Reactions: Allergies Allergy/AdvReac Type Severity Reaction Status Date / Time Chiggers AdvReac Unknown Uncoded 10/03/19 16:52 Home Medications: HOME MEDICATIONS spironolactone 25 mg tablet 50 mg PO DAILY tab 06/09/18 [Last Taken Unknown] Furosemide [Lasix] 40 mg PO TID 12/20/18 [Last Taken Unknown] Sertraline HCl [Zoloft] 100 mg PO DAILY 02/23/19 [Last Taken Unknown] Albuterol Sulfate [Albuterol Sulfate Hfa] 8.5 gm INHALATION DAILY 03/05/19 [Last Taken Unknown] Beclomethasone Dipropionate [Qvar Redihaler] 10.6 gm INHALATION DAILY 03/05/19 [Last Taken Unknown] metoprolol tartrate 50 mg tablet 12.5 mg PO BID tab 06/16/19 [Last Taken Unknown] sildenafil 100 mg tablet 100 mg PO DAILY PRN 06/16/19 [Last Taken Unknown] simvastatin 40 mg tablet 20 mg PO HS tab 06/16/19 [Last Taken Unknown] Albuterol Sulfate 2.5 mg INHALATION QID #30 vial.neb 08/16/19 [Last Taken Unknown] Albuterol Sulfate [Proventil Hfa] 6.7 gm INHALATION BID 10/03/19 [Last Taken Unknown] Melatonin 3 mg PO HS 10/03/19 [Last Taken Unknown] Exam - Exam Vital Signs: Vital Signs - Last Taken Temp 36.7 C 10/03/19 11:11 Pulse 65 10/03/19 16:55 Resp 21 H 10/03/19 16:55 BP 125/67 10/03/19 16:53 Pulse Ox 95 10/03/19 16:55 Constitutional: Present: Alert, Oriented x3, Cooperative ENT Exam: Present: hearing grossly normal Eye Exam: bilateral eye: normal inspection Respiratory: Present: no respiratory distress, wheezing Cardiovascular/Chest: Present: regular rate, rhythm, no murmur Peripheral Pulses: radial (R): 2+, radial (L): 2+ Abdomen: Present: Normal bowel sounds, soft, nontender, nondistended, no rebound tenderness, no hepatospenomegaly, no masses Extremity: Present: normal inspection Skin Exam: Present: normal color, warm/dry, no cyanosis Lymphatic: Present: no adenopathy Neurologic: Present: no motor/sensory deficits, alert, normal mood/affect, oriented x 3 Eye contact: Present: cooperative, good eye contact, normal speech Diagnostic Studies: Abnormal Lab Results 10/03/19 10/03/19 10/03/19 Range/Units 11:35 11:35 11:35 Immature Gran % (Auto) 2.20 H (0.001-0.429) % Immature Gran # (Auto) 0.17 H (0.000-0.0310) K/mm3 Lymphocytes % 15.9 L (20-51) % Lymphocytes # 1.23 L (1.5-3.5) k/mm3 D-Dimer 0.70 H (0.19-0.49) ug/mL pO2 (83.0-108.0) mmHg Total CO2 (19.0-24.0) mmol/L ABG O2 Sat (Measured) (94.0-98.0) % Carbon Dioxide 33.3 H (24-32.6) mmol/L Random Glucose 143 H (70-110) mg/dL Urine Protein (NEGATIVE) mg/dL 10/03/19 10/03/19 Range/Units 12:10 14:45 Immature Gran % (Auto) (0.001-0.429) % Immature Gran # (Auto) (0.000-0.0310) K/mm3 Lymphocytes % (20-51) % Lymphocytes # (1.5-3.5) k/mm3 D-Dimer (0.19-0.49) ug/mL pO2 64.5 L (83.0-108.0) mmHg Total CO2 28.4 H (19.0-24.0) mmol/L ABG O2 Sat (Measured) 92.6 L (94.0-98.0) % Carbon Dioxide (24-32.6) mmol/L Random Glucose (70-110) mg/dL Urine Protein 15 H (NEGATIVE) mg/dL Laboratory Results WBC 7.7 K/mm3 (4.0-10.5) 10/03/19 11:35 RBC 5.34 M/mm3 (4.7-6.0) 10/03/19 11:35 Hgb 16.4 gm/dL (13.5-18.0) 10/03/19 11:35 Hct 47.9 % (42.0-52.0) 10/03/19 11:35 MCV 89.7 fl (78-100) 10/03/19 11:35 MCH 30.7 pg (27-31) 10/03/19 11:35 MCHC 34.2 g/dl (32-36) 10/03/19 11:35 RDW 12.7 % (11.5-14.0) 10/03/19 11:35 Plt Count 173 K/mm3 (150-450) 10/03/19 11:35 MPV 9.2 fl (8-11.3) 10/03/19 11:35 Immature Gran % (Auto) 2.20 % (0.001-0.429) H 10/03/19 11:35 Immature Gran # (Auto) 0.17 K/mm3 (0.000-0.0310) H 10/03/19 11:35 Neutrophils % 71.0 % (42-75.0) 10/03/19 11:35 Lymphocytes % 15.9 % (20-51) L 10/03/19 11:35 Monocytes % 7.3 % (0.0-9) 10/03/19 11:35 Eosinophils % 2.7 % (0.0-3.0) 10/03/19 11:35 Basophils % 0.9 % (0.0-1.0) 10/03/19 11:35 Nucleated RBC % 0.0 k/mm3 (0-1) 10/03/19 11:35 Neutrophils # 5.5 K/mm3 (1.3-6.0) 10/03/19 11:35 Lymphocytes # 1.23 k/mm3 (1.5-3.5) L 10/03/19 11:35 Monocytes # 0.6 k/mm3 (0.0-1.0) 10/03/19 11:35 Eosinophils # 0.2 k/mm3 (0.0-0.7) 10/03/19 11:35 Absolute Basophils 0.1 k/mm3 (0.0-0.1) 10/03/19 11:35 D-Dimer 0.70 ug/mL (0.19-0.49) H 10/03/19 11:35 pCO2 44.6 mmHg (35.0-48.0) 10/03/19 12:10 pO2 64.5 mmHg (83.0-108.0) L 10/03/19 12:10 HCO3 27.1 mmol/L (21.0-28.0) 10/03/19 12:10 Total CO2 28.4 mmol/L (19.0-24.0) H 10/03/19 12:10 Base Excess 1.8 mmol/L (-2.0-3.0) 10/03/19 12:10 ABG pH 7.40 (7.35-7.45) 10/03/19 12:10 ABG O2 Sat (Measured) 92.6 % (94.0-98.0) L 10/03/19 12:10 Sodium 140 mmol/L (132-142) 10/03/19 11:35 Plasma Sodium 141 mmol/L (130-142) 10/03/19 11:35 Potassium 3.5 mmol/L (3.4-4.6) 10/03/19 11:35 Chloride 102 mmol/L (97-106) 10/03/19 11:35 Carbon Dioxide 33.3 mmol/L (24-32.6) H 10/03/19 11:35 Anion Gap 8.2 mmol/L (6.8-13.8) 10/03/19 11:35 BUN 15 mg/dL (6-23) 10/03/19 11:35 Creatinine 1.08 mg/dL (0.4-1.4) 10/03/19 11:35 Est GFR (Non-Af Amer) 71 mL/min (60-130) D 10/03/19 11:35 BUN/Creatinine Ratio 13.9 (9.0-21.6) 10/03/19 11:35 Random Glucose 143 mg/dL (70-110) H 10/03/19 11:35 Lactic Acid, Venous 1.5 mmol/L (0.4-2.0) 10/03/19 11:35 Calcium 9.6 mg/dL (7.9-10.9) 10/03/19 11:35 Calcium Adj for Albumin 9.6 mg/dL (8.4-10.2) 10/03/19 11:35 Total Bilirubin 0.6 mg/dL (0.0-1.1) 10/03/19 11:35 AST 25 U/L (0-48) 10/03/19 11:35 ALT 30 U/L (19-67) 10/03/19 11:35 Alkaline Phosphatase 88 U/L (50-170) 10/03/19 11:35 Troponin I Less than 0.017 ng/mL (0.00-0.10) 10/03/19 11:35 B-Natriuretic Peptide 229 pg/mL (5-350) 10/03/19 11:35 Total Protein 7.5 gm/dL (6.2-8.2) 10/03/19 11:35 Albumin 3.6 gm/dl (3.4-5.0) 10/03/19 11:35 Urine Color Yellow 10/03/19 14:45 Urine Appearance Clear (CLEAR) 10/03/19 14:45 Urine pH 5.5 pH (5.0-7.0) 10/03/19 14:45 Ur Specific [place] 1.020 SP.GR. (1.005-1.030) 10/03/19 14:45 Urine Protein 15 mg/dL (NEGATIVE) H 10/03/19 14:45 Urine Glucose (UA) Negative mg/dL (NEGATIVE) 10/03/19 14:45 Urine Ketones Negative mg/dL (NEGATIVE) 10/03/19 14:45 Urine Blood Negative /ul (NEGATIVE) 10/03/19 14:45 Urine Nitrate Negative (NEGATIVE) 10/03/19 14:45 Urine Bilirubin Negative mg/dl (NEGATIVE) 10/03/19 14:45 Prot Sulfosalicylic Acd Negative mg/dL (0) 10/03/19 14:45 Urine Urobilinogen Normal EU/dl (NORMAL) 10/03/19 14:45 Ur Leukocyte Esterase Negative /ul (NEGATIVE) 10/03/19 14:45 Urine RBC None seen /hpf (0-5) 10/03/19 14:45 Urine WBC None seen /hpf (0-5) 10/03/19 14:45 Ur Epithelial Cells None seen /hpf (0-5) 10/03/19 14:45 Urine Bacteria None seen (NONE) 10/03/19 14:45 Urine Culture Comments No culture indicated 10/03/19 14:45 Assessment/Plan - Narrative Narrative: Nick is a 74 yo male with COPD and ALS. Chest CT is concerning for pneumonia. He has COPD and increased sputum is also consistent with exacerbation. He recently was treated with outpatient antibiotics and steroids. He is weak and appears to have mucus plugging. Will admit to observation as he has no increase in baseline oxygen demands. He will be continued on his bipap which he uses at home. Will treat with antibiotics, steroids, mucinex, duonebs, cornet, and incentive spirometer. If not improved he may meet inpatient criteria as he was recently treated as outpatient for COPD exacerbation and potential pneumonia. - Assessment/Plan (1) Pneumonia Problem: Acute Qualifiers: Laterality: bilateral Lung location: lower lobe of lung (2) COPD exacerbation Problem: Acute (3) Mucus plugging of bronchi Problem: Acute
[2019-10-03] MEDS ORDERED: METHYLPREDNISOLONE SOD SUCC/PF 125 MG/2 ML VIAL IV ONE (18:00)
[2019-10-03] MEDS: ALBUTEROL SULFATE/IPRATROPIUM 3 ML NEBU IH SCH (19:10)
[2019-10-04] MEDS: ALBUTEROL SULFATE/IPRATROPIUM 3 ML NEBU IH SCH ×4 (00:20→18:06)
[2019-10-04 06:57] LABS: Hematocrit 46.5 % (42.0-52.0); Hemoglobin 16.2 gm/dL (13.5-18.0); Mean Cell Volume 87.1 fl (78-100); Mean Corpuscular Hemoglobin 30.3 pg (27-31); Mean Corpuscular Hgb Conc 34.8 g/dl (32-36); Mean Platelet Volume 9.5 fl (8-11.3); Neutrophil # 10.3 K/mm3 (1.3-6.0); Platelet Count 191 K/mm3 (150-450); Red Blood Count 5.34 M/mm3 (4.7-6.0); Red Cell Distribution Width 12.5 % (11.5-14.0); White Blood Count 12.1 K/mm3 (4.0-10.5)
[2019-10-04 07:07] LABS: Albumin * 3.6 gm/dl (3.4-5.0); Anion Gap 10.4 mmol/L (6.8-13.8); BUN/Creatinine Ratio 15.6 (9.0-21.6); Bilirubin, Total 0.7 mg/dL (0.0-1.1); Ca. Corrected For Albumin 9.6 mg/dL (8.4-10.2); Calcium * 9.6 mg/dL (7.9-10.9); Potassium 3.4 mmol/L (3.4-4.6); Total Protein 7.4 gm/dL (6.2-8.2)
[2019-10-04] MEDS ORDERED: predniSONE 20 MG TABLET PO SCH (09:00)
[2019-10-04] MEDS: FUROSEMIDE 40 MG TABLET PO SCH ×3 (10:35→17:07)
[2019-10-04] MEDS: METOPROLOL TARTRATE 25 MG TABLET PO SCH ×2 (10:35→20:24)
[2019-10-04] MEDS: SERTRALINE HCL 100 MG TABLET PO SCH (10:36)
[2019-10-04] MEDS: SPIRONOLACTONE 25 MG TABLET PO SCH (10:36)
[2019-10-04] MEDS ORDERED: ALBUTEROL SULFATE 2.5 MG/0.5 ML VIAL.NEB IH SCH (11:00)
--- NOTE | 2019-10-04 12:51 | PN ---
Subjective - Date and Time Seen Date: 10/04/19 Time: 12:45 Subjective Narrative: patient feels slightly better than yesterday. afebrile. Objective - Review of Systems Generalized/Overall Review: Reports: Weakness. Denies: Chills, Fever EENTM: Denies: Blurred Vision Respiratory: Reports: Cough, Shortness of Breath, Wheezing Cardiac: Denies: Chest Pain, Edema, Palpitations Abdominal: Denies: Nausea, Vomiting, Abdominal Pain Genitourinary Symptoms: Denies: Urgency, Frequency Musculoskeletal Complaints: Reports: Back Pain Neurological: Denies: Anxiety Skin: Denies: Lesions, Rash - Vitals Vitals: Last Vital Signs Temp 36.0 C 10/04/19 12:00 Pulse 77 10/04/19 12:09 Resp 23 H 10/04/19 12:00 BP 115/72 10/04/19 12:09 Pulse Ox 97 10/04/19 12:00 - Abnormal Lab Findings Abnormal Lab Findings: Abnormal Lab Results 10/03/19 10/04/19 10/04/19 Range/Units 14:45 06:41 06:41 WBC 12.1 H D (4.0-10.5) K/mm3 Immature Gran % (Auto) 1.70 H (0.001-0.429) % Immature Gran # (Auto) 0.21 H (0.000-0.0310) K/mm3 Neutrophils % 85.0 H (42-75.0) % Lymphocytes % 10.5 L (20-51) % Neutrophils # 10.3 H (1.3-6.0) K/mm3 Lymphocytes # 1.27 L (1.5-3.5) k/mm3 Random Glucose 174 H (70-110) mg/dL Urine Protein 15 H (NEGATIVE) mg/dL - Exam Constitutional: Present: Alert, Oriented x3, Cooperative ENT Exam: Present: hearing grossly normal Neck: Present: supple. Absent: lymphadenopathy (R), lymphadenopathy (L) Respiratory: Present: decreased breath sounds, No rales, No wheezing Cardiovascular/Chest: Present: regular rate, rhythm, no JVD, no murmur Abdomen: Present: Normal bowel sounds, soft, nontender, nondistended Extremity: Present: no calf tenderness, pedal edema Assessment/Plan Plan Narrative: Eduarda Draper is a 74-year-old white male admitted for pneumonia and acute COPD exacerbation. We will continue with his IV antibiotics and breathing treatments. If his progress is slow he may need to consider bronchoscopy with suctioning of his mucous plug as incentive spirometry and pulmonary toilet may not be as is effective due to his ALS. We will transfer patient to acute status from observation. - Problems/Diagnosis (1) Pneumonia Problem: Acute Qualifiers: Laterality: bilateral Lung location: lower lobe of lung (2) COPD exacerbation Problem: Acute (3) Hypoxia Problem: Acute (4) Mucus plugging of bronchi Problem: Acute (5) SOB (shortness of breath) Problem: Acute (6) AAA (abdominal aortic aneurysm) Problem: Acute Qualifiers: Presence of rupture: without rupture Qualified Code(s): I71.4 - Abdominal aortic aneurysm, without rupture (7) ALS (amyotrophic lateral sclerosis) Problem: Acute
[2019-10-04] MEDS ORDERED: ACETAMINOPHEN 500 MG TABLET PO PRN (12:58)
[2019-10-04] MEDS: METHYLPREDNISOLONE SOD SUCC/PF 40 MG/ML VIAL IV SCH ×2 (14:35→19:29)
[2019-10-04] MEDS ORDERED: LEVOFLOXACIN 750 MG TABLET PO ONE (15:30)
[2019-10-04] MEDS: ENOXAPARIN SODIUM 40 MG/0.4 ML SYRG SC SCH (17:07)
[2019-10-04] MEDS: MELATONIN 3,000 MCG TABLET PO SCH (20:25)
[2019-10-04] MEDS: SIMVASTATIN 20 MG TABLET PO SCH (20:26)
[2019-10-04] MEDS ORDERED: MELATONIN 3,000 MCG TABLET PO SCH (21:00)
[2019-10-05] MEDS: ALBUTEROL SULFATE/IPRATROPIUM 3 ML NEBU IH SCH ×4 (00:19→18:25)
[2019-10-05] MEDS: METHYLPREDNISOLONE SOD SUCC/PF 40 MG/ML VIAL IV SCH ×4 (00:53→18:54)
[2019-10-05] MEDS: METOPROLOL TARTRATE 25 MG TABLET PO SCH ×2 (08:25→20:07)
[2019-10-05] MEDS: SPIRONOLACTONE 25 MG TABLET PO SCH (08:25)
[2019-10-05] MEDS: FUROSEMIDE 40 MG TABLET PO SCH ×3 (08:25→16:48)
[2019-10-05] MEDS: SERTRALINE HCL 100 MG TABLET PO SCH (08:25)
--- NOTE | 2019-10-05 08:33 | PN ---
Subjective - Date and Time Seen Date: 10/05/19 Time: 08:24 Subjective Narrative: main c/o-was not able to sleep due to beeping sound of NIV. his HR was in the low 40's when he was sleeping. Objective - Review of Systems Generalized/Overall Review: Denies: Chills, Fever EENTM: Reports: Blurred Vision Respiratory: Reports: Cough, Shortness of Breath. Denies: Orthopnea, Wheezing Cardiac: Denies: Chest Pain, Edema, Palpitations Abdominal: Denies: Nausea, Vomiting, Abdominal Pain Genitourinary Symptoms: Denies: Urgency, Frequency Musculoskeletal Complaints: Denies: Joint Pain Neurological: Denies: Anxiety, Depressed Skin: Denies: Lesions, Rash - Vitals Vitals: Last Vital Signs Temp 36.6 C 10/05/19 06:30 Pulse 78 10/05/19 06:30 Resp 24 H 10/05/19 06:30 BP 112/83 10/05/19 06:30 Pulse Ox 99 10/05/19 06:30 - Exam Constitutional: Present: Alert, Oriented x3, Cooperative, Morbidly obese ENT Exam: Present: hearing grossly normal Neck: Present: supple. Absent: lymphadenopathy (R), lymphadenopathy (L) Respiratory: Present: decreased breath sounds, No rales, No wheezing Cardiovascular/Chest: Present: regular rate, rhythm, no JVD, no murmur Abdomen: Present: Normal bowel sounds, soft, nontender, nondistended Extremity: Present: no calf tenderness, pedal edema Assessment/Plan Plan Narrative: Eduarda Draper was admitted for COPD exacerbation and pneumonia. he is feeling better and less SOB. less coughing and saturating above 93 % on RA. will likely not need a bronchoscopy for his possible mucus plugging. We will continue current medications and present management. Will repeat blood draw in the morning and possible discharge. - Problems/Diagnosis (1) Pneumonia Problem: Acute Qualifiers: Laterality: bilateral Lung location: lower lobe of lung (2) COPD exacerbation Problem: Acute (3) Hypoxia Problem: Acute (4) Mucus plugging of bronchi Problem: Acute (5) SOB (shortness of breath) Problem: Acute (6) AAA (abdominal aortic aneurysm) Problem: Chronic Qualifiers: Presence of rupture: without rupture Qualified Code(s): I71.4 - Abdominal aortic aneurysm, without rupture (7) ALS (amyotrophic lateral sclerosis) Problem: Chronic
[2019-10-05] MEDS: LEVOFLOXACIN IN DEXTROSE 5 % 750 MG/150 ML BAG IV SCH (14:52)
[2019-10-05] MEDS: ENOXAPARIN SODIUM 40 MG/0.4 ML SYRG SC SCH (14:53)
[2019-10-05] MEDS: MELATONIN 3,000 MCG TABLET PO SCH (20:09)
[2019-10-05] MEDS: SIMVASTATIN 20 MG TABLET PO SCH (20:09)
[2019-10-06] MEDS: ALBUTEROL SULFATE/IPRATROPIUM 3 ML NEBU IH SCH ×4 (00:01→18:30)
[2019-10-06] MEDS: METHYLPREDNISOLONE SOD SUCC/PF 40 MG/ML VIAL IV SCH ×2 (01:15→07:15)
[2019-10-06 07:10] LABS: Anion Gap 11.9 mmol/L (6.8-13.8); BUN/Creatinine Ratio 25.2 (9.0-21.6); Calcium * 9.7 mg/dL (7.9-10.9); Carbon Dioxide 27.7 mmol/L (24-32.6); Estimated Creat Clear 65.2; Potassium 3.6 mmol/L (3.4-4.6)
[2019-10-06 07:19] LABS: Hematocrit 44.2 % (42.0-52.0); Hemoglobin 15.4 gm/dL (13.5-18.0); Mean Corpuscular Hemoglobin 30.7 pg (27-31); Mean Corpuscular Hgb Conc 34.8 g/dl (32-36); Mean Platelet Volume 9.8 fl (8-11.3); Neutrophil # 13.5 K/mm3 (1.3-6.0); Neutrophil % 88.2 % (42-75.0); Platelet Count 171 K/mm3 (150-450); Red Blood Count 5.02 M/mm3 (4.7-6.0); Red Cell Distribution Width 12.5 % (11.5-14.0); White Blood Count 15.3 K/mm3 (4.0-10.5)
[2019-10-06] MEDS: SPIRONOLACTONE 25 MG TABLET PO SCH (08:52)
[2019-10-06] MEDS: SERTRALINE HCL 100 MG TABLET PO SCH (08:53)
[2019-10-06] MEDS: FUROSEMIDE 40 MG TABLET PO SCH ×3 (08:53→16:27)
[2019-10-06] MEDS: METOPROLOL TARTRATE 25 MG TABLET PO SCH ×2 (08:53→20:11)
[2019-10-06] MEDS: predniSONE 20 MG TABLET PO SCH (08:57)
[2019-10-06] MEDS: ACETYLCYSTEINE 100 MG/ML VIAL IH SCH ×2 (12:59→18:31)
--- NOTE | 2019-10-06 13:53 | PN ---
Subjective - Date and Time Seen Date: 10/06/19 Time: 13:46 Subjective Narrative: The patient is a febrile. Saturating above 93% on room air while sitting on his recliner. Objective - Review of Systems Generalized/Overall Review: Reports: Weakness. Denies: Chills, Fever EENTM: Denies: Blurred Vision Respiratory: Reports: Cough, Shortness of Breath - with exerction. Denies: Orthopnea, Wheezing Cardiac: Denies: Chest Pain, Edema, Palpitations Abdominal: Denies: Nausea, Vomiting, Abdominal Pain Genitourinary Symptoms: Denies: Urgency, Frequency Musculoskeletal Complaints: Reports: Joint Pain Neurological: Denies: Headache Endocrine: Denies: Intolerance to Cold, Intolerance to Heat Misc: All systems neg except as marked - Vitals Vitals: Last Vital Signs Temp 37.1 C 10/06/19 10:07 Pulse 97 10/06/19 13:29 Resp 16 10/06/19 13:09 BP 134/89 10/06/19 13:29 Pulse Ox 100 10/06/19 12:59 - Abnormal Lab Findings Abnormal Lab Findings: Abnormal Lab Results 10/06/19 10/06/19 Range/Units 07:01 07:01 WBC 15.3 H D (4.0-10.5) K/mm3 Immature Gran % (Auto) 1.40 H (0.001-0.429) % Immature Gran # (Auto) 0.21 H (0.000-0.0310) K/mm3 Neutrophils % 88.2 H (42-75.0) % Lymphocytes % 7.2 L (20-51) % Neutrophils # 13.5 H (1.3-6.0) K/mm3 Lymphocytes # 1.10 L (1.5-3.5) k/mm3 BUN 30 H D (6-23) mg/dL BUN/Creatinine Ratio 25.2 H (9.0-21.6) Random Glucose 192 H (70-110) mg/dL - Exam Constitutional: Present: Alert, Oriented x3, Cooperative, Morbidly obese ENT Exam: Present: hearing grossly normal Neck: Present: supple. Absent: lymphadenopathy (R), lymphadenopathy (L) Respiratory: Present: decreased breath sounds, No rales, No wheezing Cardiovascular/Chest: Present: regular rate, rhythm, no JVD, no murmur Extremity: Present: no calf tenderness, pedal edema Assessment/Plan Plan Narrative: Nick Hollins is oxygenating well with rest however when we ambulated him his oxygen saturation drops down in the 80s. His leukocytosis is likely due to his IV Solu-Medrol. His follow-up chest x-ray showed no worsening of his pneumonia versus atelectasis. I talked to Dr. Spears on for possible bronchoscopy to see if sucking his mucous plugs will help with his oxygenation but Dr. Spears and is not in town. Patient has been doing Acapella/Megan incentive spirometry's and will add Mucomyst to his bronchodilating nebulizers. If the patient continues to have desaturation with ambulation will likely discharge him on home oxygen and scheduling of appointment with pulmonology in [facility] for possible bronchoscopy. We will also refer him to physical therapy for deconditioning which could be part of his dyspnea on exertion. - Problems/Diagnosis (1) Pneumonia Problem: Acute Qualifiers: Laterality: bilateral Lung location: lower lobe of lung (2) COPD exacerbation Problem: Acute (3) Hypoxia Problem: Acute (4) Mucus plugging of bronchi Problem: Acute (5) SOB (shortness of breath) Problem: Acute (6) AAA (abdominal aortic aneurysm) Problem: Chronic Qualifiers: Presence of rupture: without rupture Qualified Code(s): I71.4 - Abdominal aortic aneurysm, without rupture (7) ALS (amyotrophic lateral sclerosis) Problem: Chronic
[2019-10-06] MEDS: ENOXAPARIN SODIUM 40 MG/0.4 ML SYRG SC SCH (14:51)
[2019-10-06] MEDS: LEVOFLOXACIN IN DEXTROSE 5 % 750 MG/150 ML BAG IV SCH (14:51)
[2019-10-06] MEDS: SIMVASTATIN 20 MG TABLET PO SCH (20:12)
[2019-10-06] MEDS: MELATONIN 3,000 MCG TABLET PO SCH (20:12)
[2019-10-07] MEDS: ALBUTEROL SULFATE/IPRATROPIUM 3 ML NEBU IH SCH ×3 (00:17→13:47)
[2019-10-07] MEDS: ACETYLCYSTEINE 100 MG/ML VIAL IH SCH ×2 (06:23→13:47)
[2019-10-07] MEDS: METOPROLOL TARTRATE 25 MG TABLET PO SCH (08:40)
[2019-10-07] MEDS: SPIRONOLACTONE 25 MG TABLET PO SCH (08:41)
[2019-10-07] MEDS: SERTRALINE HCL 100 MG TABLET PO SCH (08:41)
[2019-10-07] MEDS: FUROSEMIDE 40 MG TABLET PO SCH ×2 (08:41→14:48)
[2019-10-07] MEDS: predniSONE 20 MG TABLET PO SCH (08:42)
--- NOTE | 2019-10-07 12:11 | DS ---
(1) Pneumonia Problem: Acute Qualifiers: Laterality: bilateral Lung location: lower lobe of lung (2) COPD exacerbation Problem: Acute (3) Hypoxia Problem: Acute (4) Mucus plugging of bronchi Problem: Acute (5) SOB (shortness of breath) Problem: Acute (6) AAA (abdominal aortic aneurysm) Problem: Chronic Qualifiers: Presence of rupture: without rupture Qualified Code(s): I71.4 - Abdominal aortic aneurysm, without rupture (7) ALS (amyotrophic lateral sclerosis) Problem: Chronic Date of Discharge:: 10/07/19 Description of Stay: Nick trejo is a 74 yo male with COPD and ALS who was admitted on 10/03/2019 f0r SOB. One month [employer], he was put on antibiotics and steroids for pneumonia. He improved and felt better but never completely got over the infection. Few days [employer], he has had increased sputum and shortness of breath. He denied change in medications, activity, or diet. He reported watching his sodium intake. He denied fever or chills. His reports that this morning his lips were blue but then he coughed up a good sized amount of sputum and he has improved since that time. His CTS of the chest showed pneumonia and possible mucus plugging. He was started on incentive spirometry using Cornet/acapella and breathing treatments. His O2 saturations improved at rest but with exertion/ambulation yesterday his O2 sat went down to to the mid 80's. I talked to Dr. Vicente for possible bronchospy and suctioning of secretions/mucus plugging but he is out of town attending a conference. He was started on Mucomyst and his saturation now is the 90% which is not bad for a COPDer after coughing out more whitish sputum. . He wants to go home and will discharge him today after his Mucomyst treatment this afternoon. Will follow up with me on Thursday to see if he still needs bronchoscopy. Will start him on Flovent inhaler when he is done with his prednisone. Will also refer him to Pulmonology for his COPD. Procedures Performed: none Results and Findings: Pending Mircobiology Results 10/03/19 15:44 Blood Blood Culture - Preliminary NO GROWTH AFTER 48 HOURS 10/03/19 15:20 Blood Blood Culture - Preliminary NO GROWTH AFTER 48 HOURS Lab Pending Results 10/03/19 11:35: WBC 7.7, RBC 5.34, Hgb 16.4, Hct 47.9, MCV 89.7, MCH 30.7, MCHC 34.2, RDW 12.7, Plt Count 173, MPV 9.2, Immature Gran % (Auto) 2.20 H, Immature Gran # (Auto) 0.17 H, Neutrophils % 71.0, Lymphocytes % 15.9 L, Monocytes % 7.3, Eosinophils % 2.7, Basophils % 0.9, Nucleated RBC % 0.0, Neutrophils # 5.5, Lymphocytes # 1.23 L, Monocytes # 0.6, Eosinophils # 0.2, Absolute Basophils 0.1 10/03/19 11:35: Sodium 140, Plasma Sodium 141, Potassium 3.5, Chloride 102, Carbon Dioxide 33.3 H, Anion Gap 8.2, BUN 15, Creatinine 1.08, Est GFR (Non-Af A ellen) 71 D, BUN/Creatinine Ratio 13.9, Random Glucose 143 H, Calcium 9.6, Calcium Adj for Albumin 9.6, Total Bilirubin 0.6, AST 25, ALT 30, Alkaline Phosphatase 88, Troponin I Less than 0.017, B-Natriuretic Peptide 229, Total Protein 7.5, Albumin 3.6 10/03/19 11:35: D-Dimer 0.70 H 10/03/19 11:35: Lactic Acid, Venous 1.5 10/03/19 12:10: pCO2 44.6, pO2 64.5 L, HCO3 27.1, Total CO2 28.4 H, Base Excess 1.8, ABG pH 7.40, ABG O2 Sat (Measured) 92.6 L 10/03/19 14:45: Urine Color Yellow, Urine Appearance Clear, Urine pH 5.5, Ur Specific [place] 1.020, Urine Protein 15 H, Urine Glucose (UA) Negative, Urine Ketones Negative, Urine Blood Negative, Urine Nitrate Negative, Urine Bilirubin Negative, Prot Sulfosalicylic Acd Negative, Urine Urobilinogen Normal, Ur Leukocyte Esterase Negative, Urine RBC None seen, Urine WBC None seen, Ur Epithelial Cells None seen, Urine Bacteria None seen, Urine Culture Comments No culture indicated 10/04/19 06:41: WBC 12.1 H D, RBC 5.34, Hgb 16.2, Hct 46.5, MCV 87.1, MCH 30.3, MCHC 34.8, RDW 12.5, Plt Count 191, MPV 9.5, Immature Gran % (Auto) 1.70 H, Immature Gran # (Auto) 0.21 H, Neutrophils % 85.0 H, Lymphocytes % 10.5 L, Monocytes % 2.6, Eosinophils % 0.0, Basophils % 0.2, Nucleated RBC % 0.0, Neutrophils # 10.3 H, Lymphocytes # 1.27 L, Monocytes # 0.3, Eosinophils # 0.0, Absolute Basophils 0.0 10/04/19 06:41: Sodium 138, Plasma Sodium 139, Potassium 3.4, Chloride 104, Carbon Dioxide 27.0, Anion Gap 10.4, BUN 19, Creatinine 1.22, Est GFR (Non-Af Amer) 62, BUN/Creatinine Ratio 15.6, Random Glucose 174 H, Calcium 9.6, Calcium Adj for Albumin 9.6, Total Bilirubin 0.7, AST 24, ALT 31, Alkaline Phosphatase 86, Total Protein 7.4, Albumin 3.6 10/06/19 07:01: WBC 15.3 H D, RBC 5.02, Hgb 15.4, Hct 44.2, MCV 88.0, MCH 30.7, MCHC 34.8, RDW 12.5, Plt Count 171, MPV 9.8, Immature Gran % (Auto) 1.40 H, Immature Gran # (Auto) 0.21 H, Neutrophils % 88.2 H, Lymphocytes % 7.2 L, Monocytes % 3.0, Eosinophils % 0.1, Basophils % 0.1, Nucleated RBC % 0.0, Neutrophils # 13.5 H, Lymphocytes # 1.10 L, Monocytes # 0.5, Eosinophils # 0.0, Absolute Basophils 0.0 10/06/19 07:01: Sodium 139, Plasma Sodium 140, Potassium 3.6, Chloride 103, Carbon Dioxide 27.7, Anion Gap 11.9, BUN 30 H D, Creatinine 1.19, Est GFR (Non- Af Amer) 64, BUN/Creatinine Ratio 25.2 H, Random Glucose 192 H, Calcium 9.7 Discharge Location: Home Disposition: Home Health Service Home Health Agency: Other - [facility] Home health Condition: Stable Discharge Activity: Activity as tolerated Discharge Diet: Low salt Referrals: Gallito Preston MD [Primary Care Provider] - Additional Patient Instructions (free text): Has [facility] from [place], please call and fax discharge orders to them. TCM with Dr Preston. Follow up with me on Thursday. Prescriptions (Any new or edited meds): Albuterol Sulfate/Ipratropium [Duoneb 2.5-0.5MG/3ML Soln] 3 ml INHALATION QID #25 nebu Transmission Status: Pending to [facility] #[id number] Levofloxacin [Levaquin] 750 mg PO DAILY 5 Days #5 tab Transmission Status: Pending to [facility] #[id number] guaiFENesin [Mucinex] 1,200 mg PO BID #30 tablet.sa Transmission Status: Pending to [facility] #[id number] predniSONE [Prednisone] 20 mg PO DAILY 5 Days #5 tab Transmission Status: Pending to [facility] #[id number] Tiotropium [place] [Spiriva] 18 mcg INHALATION DAILY #30 inhaler Transmission Status: Pending to [facility] #[id number] Complete Home Medications List: Complete Home Medication List: spironolactone 25 mg tablet 50 mg PO DAILY tab 06/09/18 Furosemide [Lasix] 40 mg PO TID 12/20/18 Sertraline HCl [Zoloft] 100 mg PO DAILY 02/23/19 Albuterol Sulfate [Albuterol Sulfate Hfa] 8.5 gm INHALATION DAILY 03/05/19 metoprolol tartrate 50 mg tablet 12.5 mg PO BID tab 06/16/19 simvastatin 40 mg tablet 20 mg PO HS tab 06/16/19 Acetaminophen [Tylenol] 1,000 mg PO HS PRN 10/04/19 Melatonin 5 mg PO HS 10/04/19 Albuterol Sulfate/Ipratropium [Duoneb 2.5-0.5MG/3ML Soln] 3 ml INHALATION QID #25 nebu 10/07/19 Levofloxacin [Levaquin] 750 mg PO DAILY 5 Days #5 tab 10/07/19 Tiotropium [place] [Spiriva] 18 mcg INHALATION DAILY #30 inhaler 10/07/19 guaiFENesin [Mucinex] 1,200 mg PO BID #30 tablet.sa 10/07/19 predniSONE [Prednisone] 20 mg PO DAILY 5 Days #5 tab 10/07/19
[2019-10-07 15:18] VITALS: BP 135/79
== END 2019-10-07 15:30 | disposition home health service (06) | DRG 190 ==
LOC: ER 11:09 → SCU 11:09 → MS 16:40
PROVIDERS: ADMIT Family Medicine; ATTEND Internal Medicine
DX: I10 Essential (primary) hypertension; E78.5 Hyperlipidemia, unspecified; I71.4 Abdominal aortic aneurysm, without rupture; T17.590A Other foreign object in bronchus causing asphyxiation, initial encounter; J18.9 Pneumonia, unspecified organism; G12.21 Amyotrophic lateral sclerosis; J44.1 Chronic obstructive pulmonary disease with (acute) exacerbation
CPT/HCPCS: 36415; 36600; 71010; 71020; 71045; 71046; 71275; 80048; 80053; 81001; 82803; 83519; 83605; 83880; 84484; 85025; 85379; 87040; 87070; 93005; 94640; 94660; 94664; 96374; 97110; 97162; 99285; G0378; Q9967

== ENCOUNTER 2019-11-09 09:05 | Observation (INO) ==
[2019-11-09] MEDS ORDERED: MORPHINE SULFATE 4 MG/ML SYRG ONE (09:11)
[2019-11-09] MEDS ORDERED: MORPHINE SULFATE 4 MG/ML SYRG IV ONE (09:12)
[2019-11-09] MEDS ORDERED: FUROSEMIDE 10 MG/ML VIAL IV ONE (09:12)
[2019-11-09] MEDS ORDERED: FUROSEMIDE 10 MG/ML VIAL ONE (09:14)
--- NOTE | 2019-11-09 09:20 | ERNOTE ---
Dyspnea - General Presenting Symptoms: shortness of breath Time Seen by Provider: 11/09/19 09:10 Source: patient, EMS Exam Limitations: no limitations - Immun/Allergies/Home Medications Immunizations: IMMUNIZATION HX Immunizations Up to Date Yes History of Influenza Vaccine Yes Hx Pneumococcal Vaccination Yes Allergies/Adverse Reactions: Allergies ibuprofen Adverse Reaction (Unknown, Verified 11/09/19 09:19) thins blood too much Chiggers Adverse Reaction (Unknown, Uncoded 11/09/19 09:19) Home Medications: HOME MEDICATIONS spironolactone 25 mg tablet 50 mg PO DAILY tab 06/09/18 [Last Taken Unknown] Furosemide [Lasix] 40 mg PO QID 12/20/18 [Last Taken Unknown] Sertraline HCl [Zoloft] 100 mg PO DAILY 02/23/19 [Last Taken Unknown] Albuterol Sulfate [Albuterol Sulfate Hfa] 8.5 gm INHALATION DAILY 03/05/19 [Last Taken Unknown] metoprolol tartrate 50 mg tablet 12.5 mg PO BID tab 06/16/19 [Last Taken Unknown] simvastatin 40 mg tablet 20 mg PO HS tab 06/16/19 [Last Taken Unknown] Acetaminophen [Tylenol] 1,000 mg PO HS PRN 10/04/19 [Last Taken Unknown] Albuterol Sulfate/Ipratropium [Duoneb 2.5-0.5MG/3ML Soln] 3 ml INHALATION QID #25 nebu 10/07/19 [Last Taken Unknown] minoxidil 10 mg tablet 10 mg PO DAILY 10/13/19 [Last Taken Unknown] fexofenadine 180 mg tablet 180 mg PO DAILY #0.1 tab 10/18/19 [Last Taken Unknown] Melatonin/Pyridoxine HCl (B6) [Melatonin 3 mg Tablet] 6 ea PO HS 11/09/19 [Last Taken Unknown] Tiotropium [place] [Spiriva] 18 mcg INHALATION DAILY PRN 11/09/19 [Last Taken Unknown] - History of Present Illness Narrative: Patient presents with escalating shortness of breath that started last night. He stated he had to use his CPAP through most of the night or his oxygen all will continue to fall. He denies any chest pain however. 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 Initiating event: Reports: unknown Frequency of episodes: Reports: occassional episodes Modifying Factors - (Improves): Reports: oxygen Modifying Factors (Worsens): Reports: activity Associated Symptoms-Dyspnea: Reports: denies symptoms Prior Treatment: Reports: recently seen Review of Systems - Review of Systems Constitutional: Present: See HPI EYE: Present: no symptoms reported ENT: Present: no symptoms reported Respiratory: Present: See HPI Cardiology: Present: no symptoms reported Gastrointestinal/Abdominal: Present: no symptoms reported Genitourinary: Present: no symptoms reported Musculoskeletal: Present: no symptoms reported Skin: Present: no symptoms reported Neurological: Present: no symptoms reported Endocrine: Present: no symptoms reported Hematologic/Lymphatic: Present: no symptoms reported Psych: Present: no symptoms reported Medical History (Last Updated 11/09/19 @ 09:20 by Maria Isabel Rajan RN) COPD (chronic obstructive pulmonary disease) ALS (amyotrophic lateral sclerosis) Atrial flutter Congestive heart failure (CHF) Sleep apnea HLD (hyperlipidemia) HTN (hypertension) Surgical History: Surgical History (Last Reviewed 11/09/19 @ 09:19 by Maria Isabel Rajan RN) Hx of prior ablation treatment Status post total hip replacement, right 02/12/2015 Status post total knee replacement, left 09/2004 History of sinus surgery Onset Date: ~1989 Hx of appendectomy Age 11 Hx of cholecystectomy Onset Date: ~1991 Laparoscopic Hx of tonsillectomy Family History: Family History (Last Reviewed 11/09/19 @ 09:19 by Maria Isabel Rajan RN) Father Cancer 2008 Alive and well. 2002 had prostate Ca. Mother , Age 79 CVA (cerebral vascular accident) series of CVA Social History: (Last Reviewed 11/09/19 @ 09:19 by Maria Isabel Rajan RN) Social History: Marital status: household members: spouse current occupational status: retired Tobacco: Smoking Status: Never smoker Tobacco: How many years used: 13 Alcohol: details: Rare Beer Physical Exam - Physical Exam General Appearance: Present: wd/wn, alert, moderate distress Head Exam: Present: normal inspection, no evidence of injury Eye Exam: Normal inspection: bilateral, PERRL: bilateral Ears, Nose, Throat: Present: normal ENT inspection, H, normal pharynx Neck: Present: normal inspection, nontender Respiratory: Present: no accessory muscle use, chest nontender, respiratory distress, rales Cardiovascular/Chest: Present: regular rate, rhythm, no murmur, normal peripheral pulses Gastrointestinal/Abdominal: Present: normal bowel sounds, nontender, nondistended, soft, no organomegaly Rectal Exam: Present: deferred Back Exam: Present: normal inspection, normal range of motion Extremity Exam: Present: normal inspection, non-tender, normal range of motion, extremity edema Neurological Exam: Present: alert, oriented, normal mood/affect Skin Exam: Present: normal color, warm/dry Lymphatic Exam: Present: no adenopathy Progress - Results and Orders Patient's Lab Results:: I have reviewed the patient's lab results. - Vital Signs Patient's Vital Signs:: I have reviewed the patient's vital signs. - EKG EKG #1 EKG: NSR, premature ventricular contraction - X-Ray X-Ray #1 X-Ray: chest Interpretation: Reviewed by me Plan - Plan Plan: Patient be admitted to a medical monitored bed. He appears to have an acute exacerbation of his COPD and require BiPAP to stabilize his lung tissue and hypoxia. Departure Clinical Impression: Hypoxia, COPD exacerbation, ALS (amyotrophic lateral sclerosis) - Departure Disposition: Still a patient Condition: Fair Referrals: Gallito Preston MD [Primary Care Provider] - Critical Care Note - Critical Care Note Total Time (mins): 35 Comments: Patient continued to deteriorate even while on oxygen. We placed him on BiPAP were able to stabilize his low oxygen level as well as his lungs. Patient will need to be admitted and was given Solu-Medrol here in the emergency department.
[2019-11-09 09:56] LABS: Urine Bilirubin Negative (NEGATIVE); Urine Blood Negative /ul (NEGATIVE); Urine Ketone Negative (NEGATIVE); Urine Nitrite Negative (NEGATIVE); Urine Protein Negative (NEGATIVE); Urine Urobilinogen Normal (NORMAL)
[2019-11-09 10:00] LABS: Hematocrit 46.7 % (42.0-52.0); Hemoglobin 15.8 gm/dL (13.5-18.0); Mean Cell Volume 89.8 fl (78-100); Mean Corpuscular Hemoglobin 30.4 pg (27-31); Mean Corpuscular Hgb Conc 33.8 g/dl (32-36); Mean Platelet Volume 9.4 fl (8-11.3); Neutrophil # 6.5 K/mm3 (1.3-6.0); Neutrophil % 66.9 % (42-75.0); Platelet Count 209 K/mm3 (150-450); Red Cell Distribution Width 12.5 % (11.5-14.0); White Blood Count 9.8 K/mm3 (4.0-10.5)
[2019-11-09 10:01] LABS: Urine Appearance Clear (CLEAR); Urine Bacteria None Seen; Urine Color Yellow; Urine RBC None Seen /hpf (0-5); Urine WBC None Seen /hpf (0-5)
[2019-11-09 10:18] LABS: ALT 28 U/L (19-67); AST 22 U/L (0-48); Albumin * 3.7 gm/dl (3.4-5.0); Alkaline Phosphatase * 86 U/L (50-170); Anion Gap 11.2 mmol/L (6.8-13.8); BNP * 339 pg/mL (5-350); BUN/Creatinine Ratio 20.3 (9.0-21.6); Bilirubin, Total 0.4 mg/dL (0.0-1.1); Blood Urea Nitrogen 26 mg/dL (6-23); Ca. Corrected For Albumin 9.3 mg/dL (8.4-10.2); Calcium * 9.4 mg/dL (7.9-10.9); Carbon Dioxide 33.1 mmol/L (24-32.6); Chloride 101 mmol/L (97-106); Glucose * 167 mg/dL (70-110); Magnesium 2.2 mg/dL (1.2-2.8); Potassium 3.3 mmol/L (3.4-4.6); Sodium 142 mmol/L (132-142); Total Protein 7.4 gm/dL (6.2-8.2)
[2019-11-09 10:19] LABS: Troponin I Less than 0.017 ng/mL (0.00-0.10)
[2019-11-09] MEDS ORDERED: METHYLPREDNISOLONE SOD SUCC/PF 125 MG/2 ML VIAL IV ONE (10:54)
--- NOTE | 2019-11-09 13:54 | HP ---
Chief Complaint - Chief Complaint Date of Service: 11/09/19 Time of Service: 13:48 Chief Complaint: Shortness of breath History of Present Illness: Nick Hollins is a 74-year-old male with a past medical history of COPD, CHF, and ALS admitted on 11/09/2019 for chief complaint of shortness of breath. Per patient's present at bedside, patient has had escalating shortness of breath for the past 3 days when ambulating with his walker. Last night he had an episode of shortness of breath after ambulating and his oxygen saturation dropped to 82%. When he put on his BiPAP, oxygen went back up to 100%. He did not try breathing treatments at this time. Patient denies any coughing, chest pain, nausea and vomiting, diarrhea, fever, or chills. He does endorse some constipation that is relieved with stool softeners as well as fatigue for the past 3 days. He has no other complaints at this time. In the ER, his EKG was NSR with occasional PVC's, RBBB, chest x-ray was negative for any acute cardiopulmonary findings, Influenza test was negative, WBC 9.8, hemoglobin 15.8, potassium 3.3, and BUN/creatinine ratio 59, BNP was 339. On ABG pH was 7.35 and pCO2 of 52.1. A dose of 125 mg IV Solumdrol was given. He was lso given 80 mg of IV lasix, Morphine 4 mg. The patient for observation ruling out acute COPD exacerbation. Medical History (Last Updated 11/09/19 @ 09:20 by Maria Isabel Rajan RN) COPD (chronic obstructive pulmonary disease) ALS (amyotrophic lateral sclerosis) Atrial flutter Congestive heart failure (CHF) Sleep apnea HLD (hyperlipidemia) HTN (hypertension) Surgical History: Surgical History (Last Reviewed 11/09/19 @ 09:19 by Maria Isabel Rajan RN) Hx of prior ablation treatment Status post total hip replacement, right 02/12/2015 Status post total knee replacement, left 09/2004 History of sinus surgery Onset Date: ~1989 Hx of appendectomy Age 11 Hx of cholecystectomy Onset Date: ~1991 Laparoscopic Hx of tonsillectomy Family History: Family History (Last Reviewed 11/09/19 @ 09:19 by Maria Isabel Rajan RN) Father Cancer 2007 Alive and well. 2001 had prostate Ca. Mother , Age 79 CVA (cerebral vascular accident) series of CVA Social History: (Last Reviewed 11/09/19 @ 09:19 by Maria Isabel Rajan RN) Social History: Marital status: household members: spouse current occupational status: retired Tobacco: Smoking Status: Never smoker Tobacco: How many years used: 13 Alcohol: details: Rare Beer Review Of Systems (GEN) - Review of Systems Generalized/Overall Review: Present: Fatigue - X3 days. Absent: Weakness, Chills, Fever Respiratory: Present: Shortness of Breath - X3 days. Absent: Cough, Orthopnea, Wheezing Cardiac: Absent: Chest Pain, Edema, Palpitations Abdominal: Present: Constipation - Baseline secondary to ALS. Absent: Nausea, Vomiting, Abdominal Pain, Diarrhea Genitourinary: Absent: Urgency, Frequency Immunizations: IMMUNIZATION HX Immunizations Up to Date Yes History of Influenza Vaccine Yes Hx Pneumococcal Vaccination Yes Allergies/Adverse Reactions: Allergies Allergy/AdvReac Type Severity Reaction Status Date / Time ibuprofen AdvReac Unknown thins Verified 11/09/19 09:19 blood too much [place] AdvReac Unknown Uncoded 11/09/19 09:19 Home Medications: HOME MEDICATIONS spironolactone 25 mg tablet 50 mg PO DAILY tab 06/09/18 [Last Taken Unknown] Furosemide [Lasix] 80 mg PO 0600,1400 12/20/18 [Last Taken Unknown] Sertraline HCl [Zoloft] 100 mg PO DAILY 02/23/19 [Last Taken Unknown] Albuterol Sulfate [Albuterol Sulfate Hfa] 8.5 gm INHALATION DAILY 03/05/19 [Last Taken Unknown] metoprolol tartrate 50 mg tablet 25 mg PO BID tab 06/16/19 [Last Taken Unknown] simvastatin 40 mg tablet 20 mg PO HS tab 06/16/19 [Last Taken Unknown] Acetaminophen [Tylenol] 1,000 mg PO HS PRN 10/04/19 [Last Taken Unknown] Albuterol Sulfate/Ipratropium [Duoneb 2.5-0.5MG/3ML Soln] 3 ml INHALATION QID #25 nebu 10/07/19 [Last Taken Unknown] minoxidil 10 mg tablet 10 mg PO DAILY 10/13/19 [Last Taken Unknown] Fexofenadine HCl [Aller-Ease] 180 mg PO DAILY PRN 11/09/19 [Last Taken Unknown] Melatonin/Pyridoxine HCl (B6) [Melatonin 3 mg Tablet] 6 mg PO HS 11/09/19 [Last Taken Unknown] Tiotropium [place] [Spiriva] 18 mcg INHALATION DAILY PRN 11/09/19 [Last Taken Unknown] Exam - Exam Vital Signs: Vital Signs - Last Taken Temp 37.3 C 11/09/19 12:47 Pulse 66 11/09/19 12:47 Resp 22 H 11/09/19 12:47 BP 126/74 11/09/19 12:47 Pulse Ox 97 11/09/19 12:59 Constitutional: Present: Alert, Oriented x3, Cooperative, No distress ENT Exam: Present: hearing grossly normal, moist mucous membranes Eye Exam: bilateral eye: normal inspection, PERRL, EOMI Neck: Present: supple. Absent: lymphadenopathy (R), lymphadenopathy (L) Respiratory: Present: lungs clear, no accessory muscle use, decreased breath sounds. Absent: rales, wheezing, expiration (prolonged) Cardiovascular/Chest: Present: regular rate, rhythm, no edema, no JVD, no murmur. Absent: gallop/S3 Abdomen: Present: Normal bowel sounds, soft, nontender, nondistended Extremity: Absent: no calf tenderness, lower extremity edema, pedal edema Skin Exam: Present: normal color, warm/dry, no cyanosis Appearance: Present: appropriate appearance Eye contact: Present: cooperative, good eye contact Thoughts: Present: normal thought pattern, normal mood /affect Diagnostic Studies: Abnormal Lab Results 11/09/19 11/09/19 11/09/19 Range/Units 09:20 09:47 09:47 Immature Gran % (Auto) 3.90 H (0.001-0.429) % Immature Gran # (Auto) 0.38 H (0.000-0.0310) K/mm3 Lymphocytes % 19.0 L (20-51) % Neutrophils # 6.5 H (1.3-6.0) K/mm3 pCO2 52.1 H (35.0-48.0) mmHg pO2 132.2 H (83.0-108.0) mmHg Total CO2 29.5 H (19.0-24.0) mmol/L ABG O2 Sat (Measured) 98.5 H (94.0-98.0) % Plasma Sodium 143 H (130-142) mmol/L Potassium 3.3 L (3.4-4.6) mmol/L Carbon Dioxide 33.1 H (24-32.6) mmol/L BUN 26 H (6-23) mg/dL Est GFR (Non-Af Amer) 59 L (60-130) mL/min Random Glucose 167 H (70-110) mg/dL Laboratory Results WBC 9.8 K/mm3 (4.0-10.5) 11/09/19 09:47 RBC 5.20 M/mm3 (4.7-6.0) 11/09/19 09:47 Hgb 15.8 gm/dL (13.5-18.0) 11/09/19 09:47 Hct 46.7 % (42.0-52.0) 11/09/19 09:47 MCV 89.8 fl (78-100) 11/09/19 09:47 MCH 30.4 pg (27-31) 11/09/19 09:47 MCHC 33.8 g/dl (32-36) 11/09/19 09:47 RDW 12.5 % (11.5-14.0) 11/09/19 09:47 Plt Count 209 K/mm3 (150-450) 11/09/19 09:47 MPV 9.4 fl (8-11.3) 11/09/19 09:47 Immature Gran % (Auto) 3.90 % (0.001-0.429) H 11/09/19 09:47 Immature Gran # (Auto) 0.38 K/mm3 (0.000-0.0310) H 11/09/19 09:47 Neutrophils % 66.9 % (42-75.0) 11/09/19 09:47 Lymphocytes % 19.0 % (20-51) L 11/09/19 09:47 Monocytes % 7.9 % (0.0-9) 11/09/19 09:47 Eosinophils % 1.5 % (0.0-3.0) 11/09/19 09:47 Basophils % 0.8 % (0.0-1.0) 11/09/19 09:47 Nucleated RBC % 0.0 k/mm3 (0-1) 11/09/19 09:47 Neutrophils # 6.5 K/mm3 (1.3-6.0) H 11/09/19 09:47 Lymphocytes # 1.86 k/mm3 (1.5-3.5) 11/09/19 09:47 Monocytes # 0.8 k/mm3 (0.0-1.0) 11/09/19 09:47 Eosinophils # 0.2 k/mm3 (0.0-0.7) 11/09/19 09:47 Absolute Basophils 0.1 k/mm3 (0.0-0.1) 11/09/19 09:47 pCO2 52.1 mmHg (35.0-48.0) H 11/09/19 09:20 pO2 132.2 mmHg (83.0-108.0) H 11/09/19 09:20 HCO3 27.9 mmol/L (21.0-28.0) 11/09/19 09:20 Total CO2 29.5 mmol/L (19.0-24.0) H 11/09/19 09:20 Base Excess 1.2 mmol/L (-2.0-3.0) 11/09/19 09:20 ABG pH 7.35 (7.35-7.45) 11/09/19 09:20 ABG O2 Sat (Measured) 98.5 % (94.0-98.0) H 11/09/19 09:20 Sodium 142 mmol/L (132-142) 11/09/19 09:47 Plasma Sodium 143 mmol/L (130-142) H 11/09/19 09:47 Potassium 3.3 mmol/L (3.4-4.6) L 11/09/19 09:47 Chloride 101 mmol/L (97-106) 11/09/19 09:47 Carbon Dioxide 33.1 mmol/L (24-32.6) H 11/09/19 09:47 Anion Gap 11.2 mmol/L (6.8-13.8) 11/09/19 09:47 BUN 26 mg/dL (6-23) H 11/09/19 09:47 Creatinine 1.28 mg/dL (0.4-1.4) 11/09/19 09:47 Est GFR (Non-Af Amer) 59 mL/min (60-130) L 11/09/19 09:47 BUN/Creatinine Ratio 20.3 (9.0-21.6) 11/09/19 09:47 Random Glucose 167 mg/dL (70-110) H 11/09/19 09:47 Calcium 9.4 mg/dL (7.9-10.9) 11/09/19 09:47 Calcium Adj for Albumin 9.3 mg/dL (8.4-10.2) 11/09/19 09:47 Magnesium 2.2 mg/dL (1.2-2.8) 11/09/19 09:47 Total Bilirubin 0.4 mg/dL (0.0-1.1) 11/09/19 09:47 AST 22 U/L (0-48) 11/09/19 09:47 ALT 28 U/L (19-67) 11/09/19 09:47 Alkaline Phosphatase 86 U/L (50-170) 11/09/19 09:47 Troponin I Less than 0.017 ng/mL (0.00-0.10) 11/09/19 09:47 B-Natriuretic Peptide 339 pg/mL (5-350) 11/09/19 09:47 Total Protein 7.4 gm/dL (6.2-8.2) 11/09/19 09:47 Albumin 3.7 gm/dl (3.4-5.0) 11/09/19 09:47 Urine Color Yellow 11/09/19 09:33 Urine Appearance Clear (CLEAR) 11/09/19 09:33 Urine pH 6.0 pH (5.0-7.0) 11/09/19 09:33 Ur Specific [place] 1.020 SP.GR. (1.005-1.030) 11/09/19 09:33 Urine Protein Negative mg/dL (NEGATIVE) 11/09/19 09:33 Urine Glucose (UA) Negative mg/dL (NEGATIVE) 11/09/19 09:33 Urine Ketones Negative mg/dL (NEGATIVE) 11/09/19 09:33 Urine Blood Negative /ul (NEGATIVE) 11/09/19 09: Urine Nitrate Negative (NEGATIVE) 11/09/19 09:33 Urine Bilirubin Negative mg/dl (NEGATIVE) 11/09/19 09: Urine Urobilinogen Normal EU/dl (NORMAL) 11/09/19 09:33 Ur Leukocyte Esterase Negative /ul (NEGATIVE) 11/09/19 09:33 Urine RBC None seen /hpf (0-5) 11/09/19 09:33 Urine WBC None seen /hpf (0-5) 11/09/19 09:33 Ur Epithelial Cells None seen /hpf (0-5) 11/09/19 09:33 Urine Bacteria None seen (NONE) 11/09/19 09:33 Urine Culture Comments No culture indicated 11/09/19 09:33 Influenza Type A Ag Negative (NEGATIVE) 11/09/19 09:50 Influenza Type B Ag Negative (NEGATIVE) 11/09/19 09:50 Mycoplasma pneumon IgM Non reactive (NonReactive) 11/09/19 09:47 Assessment/Plan - Narrative Narrative: Nick Ge is a 74-year-old white male who was admitted for shortness of breath. Admitting impression was acute COPD exacerbation but based on his history and physical exam this is most likely due to progression of his restrictive lung disease process from worsening/progression of his ALS. Although he does have a history of CHF, his BNP today is only in the 300s and CXR did not show acute pulmonary congestion. We will plan to keep patient overnight for observation and continue with O2 NC and change to his BiPAP at night> We will continue with his home medications. Will ambulate patient without oxygen tonight and if patient drops below 88% we will consider home oxygen. Will refer to PT for muscle strengthening due to ALS. - Assessment/Plan (1) SOB (shortness of breath) Assessment: likely due to progression of ALS causing RLD. Problem: Acute (2) ALS (amyotrophic lateral sclerosis) Problem: Chronic (3) Hyperlipemia Problem: Chronic Qualifiers: Hyperlipidemia type: mixed hyperlipidemia Qualified Code(s): E78.2 - Mixed hyperlipidemia (4) HTN (hypertension) Problem: Chronic Qualifiers: Hypertension type: essential hypertension Qualified Code(s): I10 - Essential (primary) hypertension (5) Atrial flutter Assessment: history of Problem: Chronic (6) Sleep apnea Problem: Chronic Qualifiers: Sleep apnea type: unspecified type Qualified Code(s): G47.30 - Sleep apnea, unspecified
[2019-11-09] MEDS ORDERED: TIOTROPIUM BROMIDE 5 CAP INHALER IH PRN (14:29)
[2019-11-09] MEDS ORDERED: ACETAMINOPHEN 500 MG TABLET PO PRN (14:29)
[2019-11-09] MEDS ORDERED: LORATADINE 10 MG TABLET PO PRN (14:29)
[2019-11-09] MEDS: ALBUTEROL SULFATE/IPRATROPIUM 3 ML NEBU IH SCH ×2 (14:49→17:59)
[2019-11-09] MEDS ORDERED: ALBUTEROL SULFATE/IPRATROPIUM 3 ML NEBU IH SCH (17:00)
[2019-11-09] MEDS ORDERED: POTASSIUM CHLORIDE 20 MEQ TABLET.SA PO ONE (18:00)
[2019-11-09] MEDS: METOPROLOL TARTRATE 25 MG TABLET PO SCH (21:38)
[2019-11-09] MEDS: SIMVASTATIN 20 MG TABLET PO SCH (21:38)
[2019-11-09] MEDS: MELATONIN 3,000 MCG TABLET PO SCH (21:40)
[2019-11-10] MEDS: ALBUTEROL SULFATE/IPRATROPIUM 3 ML NEBU IH SCH ×4 (06:14→18:22)
[2019-11-10] MEDS: ALBUTEROL SULFATE 2.5 MG/0.5 ML VIAL.NEB IH SCH ×2 (06:14→10:18)
[2019-11-10 06:51] LABS: Anion Gap 12.9 mmol/L (6.8-13.8); BUN/Creatinine Ratio 23.1 (9.0-21.6); Carbon Dioxide 27.4 mmol/L (24-32.6); Estimated Creat Clear 59.7; Hematocrit 43.3 % (42.0-52.0); Mean Cell Volume 87.1 fl (78-100); Mean Corpuscular Hemoglobin 30.2 pg (27-31); Mean Corpuscular Hgb Conc 34.6 g/dl (32-36); Mean Platelet Volume 9.5 fl (8-11.3); Neutrophil # 11.3 K/mm3 (1.3-6.0); Neutrophil % 80.8 % (42-75.0); Platelet Count 206 K/mm3 (150-450); Potassium 3.3 mmol/L (3.4-4.6); Red Blood Count 4.97 M/mm3 (4.7-6.0); Red Cell Distribution Width 12.3 % (11.5-14.0); White Blood Count 14.1 K/mm3 (4.0-10.5)
[2019-11-10] MEDS: FUROSEMIDE 80 MG TABLET PO SCH ×2 (07:09→14:46)
[2019-11-10] MEDS ORDERED: POTASSIUM CHLORIDE 10 MEQ TABLET.SA PO ONE (08:08)
[2019-11-10 08:44] LABS: Hemoglobin A1C 6.7 % (4.00-6.0)
[2019-11-10] MEDS ORDERED: ALBUTEROL SULFATE 2.5 MG/0.5 ML VIAL.NEB IH SCH (09:00)
[2019-11-10] MEDS: MINOXIDIL 2.5 MG TABLET PO SCH (09:01)
[2019-11-10] MEDS: SERTRALINE HCL 100 MG TABLET PO SCH (09:01)
[2019-11-10] MEDS: SPIRONOLACTONE 25 MG TABLET PO SCH (09:01)
[2019-11-10] MEDS: METOPROLOL TARTRATE 25 MG TABLET PO SCH ×2 (09:01→20:59)
--- NOTE | 2019-11-10 13:41 | DS ---
(1) SOB (shortness of breath) Problem: Acute (2) ALS (amyotrophic lateral sclerosis) Problem: Chronic (3) Hyperlipemia Problem: Chronic Qualifiers: Hyperlipidemia type: mixed hyperlipidemia Qualified Code(s): E78.2 - Mixed hyperlipidemia (4) HTN (hypertension) Problem: Chronic Qualifiers: Hypertension type: essential hypertension Qualified Code(s): I10 - Essential (primary) hypertension (5) Atrial flutter Problem: Chronic (6) Sleep apnea Problem: Chronic Qualifiers: Sleep apnea type: unspecified type Qualified Code(s): G47.30 - Sleep apnea, unspecified (7) Physical deconditioning Problem: Acute Date of Discharge:: 11/10/19 Hospital Course: Nick Hollins is a 74-year-old male with a past medical history of COPD, CHF, and ALS admitted on 11/09/2019 for chief complaint of shortness of breath. Per patient's present at bedside, patient has had escalating shortness of breath for the past 3 days when ambulating with his walker. Last night he had an episode of shortness of breath after ambulating and his oxygen saturation dropped to 82%. When he put on his BiPAP, oxygen went back up to 100%. He did not try breathing treatments at this time. Patient denies any coughing, chest pain, nausea and vomiting, diarrhea, fever, or chills. He does endorse some constipation that is relieved with stool softeners as well as fatigue for the past 3 days. He has no other complaints at this time. In the ER, his EKG was NSR with occasional PVC's, RBBB, chest x-ray was negative for any acute cardiopulmonary findings, Influenza test was negative, WBC 9.8, hemoglobin 15.8, potassium 3.3, and BUN/creatinine ratio 59, BNP was 339. On ABG pH was 7.35 and pCO2 of 52.1. A dose of 125 mg IV Solumdrol was given. He was lso given 80 mg of IV lasix, Morphine 4 mg. Admitting impression was acute COPD exacerbation but based on his history and physical exam this is most likely due to progression of his restrictive lung disease process from worsening/progression of his ALS. Although he does have a history of CHF, his BNP today is only in the 300s and CXR did not show acute pulmonary congestion. We kept patient overnight for observation and continued with O2 NC and changed to his BiPAP at night. We continued with his home medications. We ambulated patient without oxygen and his O2 dropped below 88% . We will prescribe him home oxygen. We will also increase his sertraline to 150 mg PO qdaily due to his increase anxiety when ambulating in the hallway. We referred patient to PT for muscle strengthening due to ALS. He will also benefit from doing cardiopulmonary rehab in our outpatient . His leukocytosis today most likely is due to the IV Solu-Medrol he got in the emergency room yesterday. We did add an HbA1c to his blood work and it is showing to be 6.7 equivalent to mean blood glucose of 137. The patient was told that he could have a new onset diabetes mellitus and will need to repeat fasting blood sugar and HbA1c in 1 week's time. If still in the diabetic range she may need to be on diabetic diet as well probably start him also on some metformin. Addendum: [facility] not be able to [facility] today but will do it tomorrow. We will cancel his discharge today. This will serve as my PROGRESS NOTES for today. Procedures Performed: none Results and Findings: Lab Pending Results 11/09/19 09:20: pCO2 52.1 H, pO2 132.2 H, HCO3 27.9, Total CO2 29.5 H, Base Excess 1.2, ABG pH 7.35, ABG O2 Sat (Measured) 98.5 H 11/09/19 09:33: Urine Color Yellow, Urine Appearance Clear, Urine pH 6.0, Ur Specific [place] 1.020, Urine Protein Negative, Urine Glucose (UA) Negative, Urine Ketones Negative, Urine Blood Negative, Urine Nitrate Negative, Urine Bilirubin Negative, Urine Urobilinogen Normal, Ur Leukocyte Esterase Negative, Urine RBC None seen, Urine WBC None seen, Ur Epithelial Cells None seen, Urine Bacteria None seen, Urine Culture Comments No culture indicated 11/09/19 09:47: WBC 9.8, RBC 5.20, Hgb 15.8, Hct 46.7, MCV 89.8, MCH 30.4, MCHC 33.8, RDW 12.5, Plt Count 209, MPV 9.4, Immature Gran % (Auto) 3.90 H, Immature Gran # (Auto) 0.38 H, Neutrophils % 66.9, Lymphocytes % 19.0 L, Monocytes % 7.9, Eosinophils % 1.5, Basophils % 0.8, Nucleated RBC % 0.0, Neutrophils # 6.5 H, Lymphocytes # 1.86, Monocytes # 0.8, Eosinophils # 0.2, Absolute Basophils 0.1 11/09/19 09:47: Sodium 142, Plasma Sodium 143 H, Potassium 3.3 L, Chloride 101, Carbon Dioxide 33.1 H, Anion Gap 11.2, BUN 26 H, Creatinine 1.28, Est GFR (Non- Af Amer) 59 L, BUN/Creatinine Ratio 20.3, Random Glucose 167 H, Calcium 9.4, Calcium Adj for Albumin 9.3, Magnesium 2.2, Total Bilirubin 0.4, AST 22, ALT 28, Alkaline Phosphatase 86, Troponin I Less than 0.017, B-Natriuretic Peptide 339, Total Protein 7.4, Albumin 3.7 11/09/19 09:47: Mycoplasma pneumon IgM Non reactive 11/09/19 09:50: Influenza Type A Ag Negative, Influenza Type B Ag Negative 11/10/19 06:30: WBC 14.1 H D, RBC 4.97, Hgb 15.0, Hct 43.3, MCV 87.1, MCH 30.2, MCHC 34.6, RDW 12.3, Plt Count 206, MPV 9.5, Immature Gran % (Auto) 2.60 H, Immature Gran # (Auto) 0.37 H, Neutrophils % 80.8 H, Lymphocytes % 9.9 L, Monocytes % 6.4, Eosinophils % 0.1, Basophils % 0.2, Nucleated RBC % 0.0, Neutrophils # 11.3 H, Lymphocytes # 1.39 L, Monocytes # 0.9, Eosinophils # 0.0, Absolute Basophils 0.0 11/10/19 06:30: Sodium 139, Plasma Sodium 141, Potassium 3.3 L, Chloride 102, Carbon Dioxide 27.4, Anion Gap 12.9, BUN 30 H, Creatinine 1.30, Est GFR (Non-Af Amer) 58 L, BUN/Creatinine Ratio 23.1 H, Random Glucose 202 H, Calcium 10.0 11/10/19 06:30: Mean Blood Glucose 137, Hemoglobin A1c 6.7 H Discharge Location: Home Disposition: Home Health Service Condition: Fair Discharge Activity: Activity as tolerated Discharge Diet: Consistent carbs Referrals: Gallito Preston MD [Primary Care Provider] - Additional Patient Instructions (free text): Resume [facility] at discharge, Please call and fax discharge information to them. Follow up with PCP in 1 week. Complete Home Medications List: Complete Home Medication List: spironolactone 25 mg tablet 50 mg PO DAILY tab 06/09/18 Furosemide [Lasix] 80 mg PO 0600,1400 12/20/18 Sertraline HCl [Zoloft] 100 mg PO DAILY 02/23/19 Albuterol Sulfate [Albuterol Sulfate Hfa] 8.5 gm INHALATION DAILY 03/05/19 metoprolol tartrate 50 mg tablet 25 mg PO BID tab 06/16/19 simvastatin 40 mg tablet 20 mg PO HS tab 06/16/19 Acetaminophen [Tylenol] 1,000 mg PO HS PRN 10/04/19 Albuterol Sulfate/Ipratropium [Duoneb 2.5-0.5MG/3ML Soln] 3 ml INHALATION QID #25 nebu 10/07/19 minoxidil 10 mg tablet 10 mg PO DAILY 10/13/19 Fexofenadine HCl [Aller-Ease] 180 mg PO DAILY PRN 11/09/19 Melatonin/Pyridoxine HCl (B6) [Melatonin 3 mg Tablet] 6 mg PO HS 11/09/19 Tiotropium [place] [Spiriva] 18 mcg INHALATION DAILY PRN 11/09/19
[2019-11-10] MEDS: MELATONIN 3,000 MCG TABLET PO SCH (20:59)
[2019-11-10] MEDS: SIMVASTATIN 20 MG TABLET PO SCH (21:00)
[2019-11-11] MEDS: FUROSEMIDE 80 MG TABLET PO SCH ×2 (05:47→15:45)
[2019-11-11] MEDS: ALBUTEROL SULFATE 2.5 MG/0.5 ML VIAL.NEB IH SCH (07:05)
[2019-11-11] MEDS: ALBUTEROL SULFATE/IPRATROPIUM 3 ML NEBU IH SCH ×4 (07:05→19:21)
--- NOTE | 2019-11-11 08:53 | DS ---
(1) SOB (shortness of breath) Problem: Acute (2) ALS (amyotrophic lateral sclerosis) Problem: Chronic (3) Hyperlipemia Problem: Chronic Qualifiers: Hyperlipidemia type: mixed hyperlipidemia Qualified Code(s): E78.2 - Mixed hyperlipidemia (4) HTN (hypertension) Problem: Chronic Qualifiers: Hypertension type: essential hypertension Qualified Code(s): I10 - Essential (primary) hypertension (5) Atrial flutter Problem: Chronic (6) Sleep apnea Problem: Chronic Qualifiers: Sleep apnea type: unspecified type Qualified Code(s): G47.30 - Sleep apnea, unspecified Date of Discharge:: 11/11/19 Hospital Course: Nick Hollins is a 74-year-old male with a past medical history of COPD, CHF, and ALS admitted on 11/09/2019 for chief complaint of shortness of breath. Per patient's present at bedside, patient has had escalating shortness of breath for the past 3 days when ambulating with his walker. Last night he had an episode of shortness of breath after ambulating and his oxygen saturation dropped to 82%. When he put on his BiPAP, oxygen went back up to 100%. He did not try breathing treatments at this time. Patient denies any coughing, chest pain, nausea and vomiting, diarrhea, fever, or chills. He does endorse some constipation that is relieved with stool softeners as well as fatigue for the pa st 3 days. He has no other complaints at this time. In the ER, his EKG was NSR with occasional PVC's, RBBB, chest x-ray was negative for any acute cardiopulmonary findings, Influenza test was negative, WBC 9.8, hemoglobin 15.8, potassium 3.3, and BUN/creatinine ratio 59, BNP was 339. On ABG pH was 7.35 and pCO2 of 52.1. A dose of 125 mg IV Solumdrol was given. He was lso given 80 mg of IV lasix, Morphine 4 mg. Admitting impression was acute COPD exacerbation but based on his history and physical exam this is most likely due to progression of his restrictive lung disease process from worsen ing/progression of his ALS. Although he does have a history of CHF, his BNP today is only in the 300s and CXR did not show acute pulmonary congestion. We kept patient overnight for observation and continued with O2 NC and changed to his BiPAP at night. We continued with his home medications. We ambulated patient without oxygen and his O2 dropped below 88% . We will prescribe him home oxygen. We will also increase his sertraline to 150 mg PO qdaily due to his increase anxiety when ambulating in the hallway. We referred patient to PT for muscle strengthening due to ALS. He will also benefit from doing cardiopulmonary rehab in our outpatient but he refudef that for now.. His leukocytosis today most likely is due to the IV Solu-Medrol he got in the emergency room yesterday. We did add an HbA1c to his blood work and it is showing to be 6.7 equivalent to mean blood glucose of 137. The patient was told that he could have a new onset diabetes mellitus and will need to repeat fasting blood sugar and HbA1c in 1 week's time. If still in the diabetic range she may need to be on diabetic diet as well probably start him also on some metformin. His discharge yesterday was cancelled due to his O2 not being able to be delivered. It is coming today and he is stble to be discharged today. Procedures Performed: none Results and Findings: Lab Pending Results 11/09/19 09:20: pCO2 52.1 H, pO2 132.2 H, HCO3 27.9, Total CO2 29.5 H, Base Excess 1.2, ABG pH 7.35, ABG O2 Sat (Measured) 98.5 H 11/09/19 09:33: Urine Color Yellow, Urine Appearance Clear, Urine pH 6.0, Ur Specific [place] 1.020, Urine Protein Negative, Urine Glucose (UA) Negative, Urine Ketones Negative, Urine Blood Negative, Urine Nitrate Negative, Urine Bilirubin Negative, Urine Urobilinogen Normal, Ur Leukocyte Esterase Negative, Urine RBC None seen, Urine WBC None seen, Ur Epithelial Cells None seen, Urine Bacteria None seen, Urine Culture Comments No culture indicated 11/09/19 09:47: WBC 9.8, RBC 5.20, Hgb 15.8, Hct 46.7, MCV 89.8, MCH 30.4, MCHC 33.8, RDW 12.5, Plt Count 209, MPV 9.4, Immature Gran % (Auto) 3.90 H, Immature Gran # (Auto) 0.38 H, Neutrophils % 66.9, Lymphocytes % 19.0 L, Monocytes % 7.9, Eosinophils % 1.5, Basophils % 0.8, Nucleated RBC % 0.0, Neutrophils # 6.5 H, L ymphocytes # 1.86, Monocytes # 0.8, Eosinophils # 0.2, Absolute Basophils 0.1 11/09/19 09:47: Sodium 142, Plasma Sodium 143 H, Potassium 3.3 L, Chloride 101, Carbon Dioxide 33.1 H, Anion Gap 11.2, BUN 26 H, Creatinine 1.28, Est GFR (Non- Af Amer) 59 L, BUN/Creatinine Ratio 20.3, Random Glucose 167 H, Calcium 9.4, Calcium Adj for Albumin 9.3, Magnesium 2.2, Total Bilirubin 0.4, AST 22, ALT 28, Alkaline Phosphatase 86, Troponin I Less than 0.017, B-Natriuretic Peptide 339, Total Protein 7.4, Albumin 3.7 11/09/19 09:47: Mycoplasma pneumon IgM Non reactive 11/09/19 09:50: Influenza Type A Ag Negative, Influenza Type B Ag Negative 11/10/19 06:30: WBC 14.1 H D, RBC 4.97, Hgb 15.0, Hct 43.3, MCV 87.1, MCH 30.2, MCHC 34.6, RDW 12.3, Plt Count 206, MPV 9.5, Immature Gran % (Auto) 2.60 H, Immature Gran # (Auto) 0.37 H, Neutrophils % 80.8 H, Lymphocytes % 9.9 L, Monocytes % 6.4, Eosinophils % 0.1, Basophils % 0.2, Nucleated RBC % 0.0, Neutrophils # 11.3 H, Lymphocytes # 1.39 L, Monocytes # 0.9, Eosinophils # 0.0, Absolute Basophils 0.0 11/10/19 06:30: Sodium 139, Plasma Sodium 141, Potassium 3.3 L, Chloride 102, Carbon Dioxide 27.4, Anion Gap 12.9, BUN 30 H, Creatinine 1.30, Est GFR (Non-Af Amer) 58 L, BUN/Creatinine Ratio 23.1 H, Random Glucose 202 H, Calcium 10.0 11/10/19 06:30: Mean Blood Glucose 137, Hemoglobin A1c 6.7 H Discharge Location: Home Disposition: Home Health Service Home Health Agency: Other - [facility] Condition: Fair Discharge Activity: Activity as tolerated Discharge Diet: Consistent carbs Referrals: Gallito Preston MD [Primary Care Provider] - Additional Patient Instructions (free text): Resume [facility] at discharge, Please call and fax discharge information to them. Follow up with PCP in 1 week. Prescriptions (Any new or edited meds): Sertraline HCl [Zoloft] 150 mg PO DAILY #30 Complete Home Medications List: Complete Home Medication List: spironolactone 25 mg tablet 50 mg PO DAILY tab 06/09/18 Furosemide [Lasix] 80 mg PO 0600,1400 12/20/18 Albuterol Sulfate [Albuterol Sulfate Hfa] 8.5 gm INHALATION DAILY 03/05/19 metoprolol tartrate 50 mg tablet 25 mg PO BID tab 06/16/19 simvastatin 40 mg tablet 20 mg PO HS tab 06/16/19 Acetaminophen [Tylenol] 1,000 mg PO HS PRN 10/04/19 Albuterol Sulfate/Ipratropium [Duoneb 2.5-0.5MG/3ML Soln] 3 ml INHALATION QID #25 nebu 10/07/19 minoxidil 10 mg tablet 10 mg PO DAILY 10/13/19 Fexofenadine HCl [Aller-Ease] 180 mg PO DAILY PRN 11/09/19 Melatonin/Pyridoxine HCl (B6) [Melatonin 3 mg Tablet] 6 mg PO HS 11/09/19 Tiotropium [place] [Spiriva] 18 mcg INHALATION DAILY PRN 11/09/19 Sertraline HCl [Zoloft] 150 mg PO DAILY #30 11/10/19
[2019-11-11] MEDS: MINOXIDIL 2.5 MG TABLET PO SCH (08:59)
[2019-11-11] MEDS: SERTRALINE HCL 100 MG TABLET PO SCH (09:00)
[2019-11-11] MEDS: SPIRONOLACTONE 25 MG TABLET PO SCH (09:00)
[2019-11-11] MEDS: METOPROLOL TARTRATE 25 MG TABLET PO SCH ×2 (09:01→21:29)
[2019-11-11] MEDS ORDERED: ACETAMINOPHEN 500 MG TABLET PO ONE (09:07)
[2019-11-11] MEDS: SIMVASTATIN 20 MG TABLET PO SCH (21:29)
[2019-11-11] MEDS: MELATONIN 3,000 MCG TABLET PO SCH (21:29)
[2019-11-12] MEDS: FUROSEMIDE 80 MG TABLET PO SCH ×2 (05:34→14:29)
[2019-11-12] MEDS: ALBUTEROL SULFATE 2.5 MG/0.5 ML VIAL.NEB IH SCH (06:13)
[2019-11-12] MEDS: ALBUTEROL SULFATE/IPRATROPIUM 3 ML NEBU IH SCH ×4 (06:13→18:02)
[2019-11-12] MEDS: MINOXIDIL 2.5 MG TABLET PO SCH (08:56)
[2019-11-12] MEDS: METOPROLOL TARTRATE 25 MG TABLET PO SCH ×2 (08:57→20:45)
[2019-11-12] MEDS: SERTRALINE HCL 100 MG TABLET PO SCH (08:57)
[2019-11-12] MEDS: SPIRONOLACTONE 25 MG TABLET PO SCH (08:58)
[2019-11-12] MEDS: MELATONIN 3,000 MCG TABLET PO SCH (20:45)
[2019-11-12] MEDS: SIMVASTATIN 20 MG TABLET PO SCH (20:45)
--- NOTE | 2019-11-12 22:34 | PN ---
Subjective - Date and Time Seen Date: 11/12/19 Time: 08:28 Subjective Narrative: Patient feels very good today. No concerns at this time. No acute events overnight. Just waiting for [facility] to [facility] so [facility] can be discharged home. Objective - Review of Systems Generalized/Overall Review: Denies: Weakness, Chills, Fever EENTM: Reports: No Symptoms Reported Respiratory: Reports: Shortness of Breath. Denies: Cough, Wheezing Cardiac: Denies: Chest Pain, Edema Abdominal: Reports: No Symptoms Reported Musculoskeletal Complaints: Reports: No Symptoms Reported Neurological: Reports: No Symptoms Reported - Vitals Vitals: Last Vital Signs Temp 37.0 C 11/12/19 20:47 Pulse 89 11/12/19 21:48 Resp 20 11/12/19 21:48 BP 128/77 11/12/19 20:47 Pulse Ox 93 11/12/19 21:48 - Exam Constitutional: Present: Alert, Oriented x3 Respiratory: Present: lungs clear, normal breath sounds Cardiovascular/Chest: Present: regular rate, rhythm, no murmur Abdomen: Present: soft, nontender, nondistended Skin Exam: Present: normal color, warm/dry Thoughts: Present: normal thought pattern, normal mood /affect Assessment/Plan Plan Narrative: Patient feels well. 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 Likely will happen on Thursday. Patient feels well and has no questions or concerns at this time. No changes in current treatment plan. Nurse will call with questions or concerns - Problems/Diagnosis (1) Hypoxia Problem: Acute (2) Sleep apnea Problem: Chronic Qualifiers: Sleep apnea type: unspecified type Qualified Code(s): G47.30 - Sleep apnea, unspecified (3) ALS (amyotrophic lateral sclerosis) Problem: Chronic (4) Atrial flutter Problem: Chronic
[2019-11-13] MEDS: ALBUTEROL SULFATE/IPRATROPIUM 3 ML NEBU IH SCH ×4 (06:15→18:12)
[2019-11-13] MEDS: ALBUTEROL SULFATE 2.5 MG/0.5 ML VIAL.NEB IH SCH (06:17)
[2019-11-13] MEDS: FUROSEMIDE 80 MG TABLET PO SCH ×2 (07:31→14:00)
[2019-11-13] MEDS: SPIRONOLACTONE 25 MG TABLET PO SCH (10:01)
[2019-11-13] MEDS: MINOXIDIL 2.5 MG TABLET PO SCH (10:01)
[2019-11-13] MEDS: METOPROLOL TARTRATE 25 MG TABLET PO SCH ×2 (10:02→20:37)
[2019-11-13] MEDS: SERTRALINE HCL 100 MG TABLET PO SCH (10:02)
--- NOTE | 2019-11-13 14:32 | PN ---
Subjective - Date and Time Seen Date: 11/13/19 Time: 09:28 Subjective Narrative: Patient feels well, no acute events overnight. Vital signs stable and he is afebrile. He denies shortness of breath, cough, chest pain. Patient had a bowel movement yesterday. Objective - Review of Systems Generalized/Overall Review: Denies: Weakness, Chills, Fever EENTM: Reports: No Symptoms Reported Respiratory: Denies: Cough, Shortness of Breath Cardiac: Denies: Chest Pain, Edema Abdominal: Reports: No Symptoms Reported Genitourinary Symptoms: Reports: No Symptoms Reported Musculoskeletal Complaints: Reports: No Symptoms Reported Neurological: Reports: No Symptoms Reported Skin: Reports: No Symptoms Reported - Vitals Vitals: Last Vital Signs Temp 36.6 C 11/13/19 10:55 Pulse 71 11/13/19 14:21 Resp 20 11/13/19 14:21 BP 107/66 11/13/19 14:00 Pulse Ox 95 11/13/19 14:21 - Exam Constitutional: Present: Alert, Oriented x3, Cooperative Respiratory: Present: lungs clear, normal breath sounds Cardiovascular/Chest: Present: regular rate, rhythm, no murmur Abdomen: Present: soft, nontender, nondistended Assessment/Plan Plan Narrative: Patient feels well. [facility] for [facility] use. It is approved and should be delivered tomorrow. Patient feels well and has no questions or concerns at this time. No changes in current treatment plan. Nurse will call with questions or concerns - Problems/Diagnosis (1) Hypoxia Problem: Acute (2) Sleep apnea Problem: Chronic Qualifiers: Sleep apnea type: unspecified type Qualified Code(s): G47.30 - Sleep apnea, unspecified (3) ALS (amyotrophic lateral sclerosis) Problem: Chronic (4) Atrial flutter Problem: Chronic
[2019-11-13] MEDS: SIMVASTATIN 20 MG TABLET PO SCH (20:37)
[2019-11-13] MEDS: MELATONIN 3,000 MCG TABLET PO SCH (20:37)
[2019-11-14] MEDS: ALBUTEROL SULFATE 2.5 MG/0.5 ML VIAL.NEB IH SCH (06:04)
[2019-11-14] MEDS: ALBUTEROL SULFATE/IPRATROPIUM 3 ML NEBU IH SCH ×3 (06:04→14:17)
[2019-11-14] MEDS: SERTRALINE HCL 100 MG TABLET PO SCH (08:05)
[2019-11-14] MEDS: FUROSEMIDE 80 MG TABLET PO SCH ×2 (08:05→13:54)
[2019-11-14] MEDS: METOPROLOL TARTRATE 25 MG TABLET PO SCH (08:05)
[2019-11-14] MEDS: MINOXIDIL 2.5 MG TABLET PO SCH (08:05)
[2019-11-14] MEDS: SPIRONOLACTONE 25 MG TABLET PO SCH (08:06)
--- NOTE | 2019-11-14 08:37 | DS ---
(1) SOB (shortness of breath) Problem: Acute (2) ALS (amyotrophic lateral sclerosis) Problem: Chronic (3) Hyperlipemia Problem: Chronic Qualifiers: Hyperlipidemia type: mixed hyperlipidemia Qualified Code(s): E78.2 - Mixed hyperlipidemia (4) HTN (hypertension) Problem: Chronic Qualifiers: Hypertension type: essential hypertension Qualified Code(s): I10 - Essential (primary) hypertension (5) Atrial flutter Problem: Chronic (6) Sleep apnea Problem: Chronic Qualifiers: Sleep apnea type: unspecified type Qualified Code(s): G47.30 - Sleep apnea, unspecified Hospital Course: Nick Hollins is a 74-year-old male with a past medical history of COPD, CHF, and ALS admitted on 11/09/2019 for chief complaint of shortness of breath. Per patient's present at bedside, patient has had escalating shortness of breath for the past 3 days when ambulating with his walker. Last night he had an episode of shortness of breath after ambulating and his oxygen saturation dropped to 82%. When he put on his BiPAP, oxygen went back up to 100%. He did not try breathing treatments at this time. Patient denies any coughing, chest pain, nausea and vomiting, diarrhea, fever, or chills. He does endorse some constipation that is relieved with stool softeners as well as fatigue for the past 3 days. He has no other complaints at this time. In the ER, his EKG was NSR with occasional PVC's, RBBB, chest x-ray was negative for any acute cardiopulmonary findings, Influenza test was negative, WBC 9.8, hemoglobin 15.8, potassium 3.3, and BUN/creatinine ratio 59, BNP was 339. On ABG pH was 7.35 and pCO2 of 52.1. A dose of 125 mg IV Solumdrol was given. He was lso given 80 mg of IV lasix, Morphine 4 mg. Admitting impression was acute COPD exacerbation but based on his history and physical exam this is most likely due to progression of his restrictive lung disease process from worsening/progression of his ALS. Although he does have a history of CHF, his BNP today is only in the 300s and CXR did not show acute pulmonary congestion. We kept patient overnight for observation and continued with O2 NC and changed to his BiPAP at night. We continued with his home medications. We ambulated patient without oxygen and his O2 dropped below 88% . We will prescribe him home oxygen. We increased his sertraline to 150 mg PO qdaily due to his increase anxiety when ambulating in the hallway. We referred patient to PT for muscle strengthening due to ALS. He will also benefit from doing cardiopulmonary rehab in our outpatient but he refudef that for now.. He got leukocytosis likely due to the IV Solu-Medrol he got in the emergency room on his admission day. We did add an HbA1c to his blood work and it is showing to be 6.7 equivalent to mean blood glucose of 137. The patient was told that he could have a new onset diabetes mellitus and will need to repeat fasting blood sugar and HbA1c in 1 week's time. If still in the diabetic range he may need to be on diabetic diet as well probably start him also on some metformin. His discharge was cancelled due to his O2 not being able to be delivered. He had to stay over the weekend. It is coming today and he is stable to be discharged today. He has [facility] health with [facility] and has home PT/OT. Procedures Performed: none Results and Findings: Lab Pending Results 11/09/19 09:20: pCO2 52.1 H, pO2 132.2 H, HCO3 27.9, Total CO2 29.5 H, Base Excess 1.2, ABG pH 7.35, ABG O2 Sat (Measured) 98.5 H 11/09/19 09:33: Urine Color Yellow, Urine Appearance Clear, Urine pH 6.0, Ur Specific [place] 1.020, Urine Protein Negative, Urine Glucose (UA) Negative, Urine Ketones Negative, Urine Blood Negative, Urine Nitrate Negative, Urine Bilirubin Negative, Urine Urobilinogen Normal, Ur Leukocyte Esterase Negative, Urine RBC None seen, Urine WBC None seen, Ur Epithelial Cells None seen, Urine Bacteria None seen, Urine Culture Comments No culture indicated 11/09/19 09:47: WBC 9.8, RBC 5.20, Hgb 15.8, Hct 46.7, MCV 89.8, MCH 30.4, MCHC 33.8, RDW 12.5, Plt Count 209, MPV 9.4, Immature Gran % (Auto) 3.90 H, Immature Gran # (Auto) 0.38 H, Neutrophils % 66.9, Lymphocytes % 19.0 L, Monocytes % 7.9, Eosinophils % 1.5, Basophils % 0.8, Nucleated RBC % 0.0, Neutrophils # 6.5 H, Lymphocytes # 1.86, Monocytes # 0.8, Eosinophils # 0.2, Absolute Basophils 0.1 11/09/19 09:47: Sodium 142, Plasma Sodium 143 H, Potassium 3.3 L, Chloride 101, Carbon Dioxide 33.1 H, Anion Gap 11.2, BUN 26 H, Creatinine 1.28, Est GFR (Non- Af Amer) 59 L, BUN/Creatinine Ratio 20.3, Random Glucose 167 H, Calcium 9.4, Calcium Adj for Albumin 9.3, Magnesium 2.2, Total Bilirubin 0.4, AST 22, ALT 28, Alkaline Phosphatase 86, Troponin I Less than 0.017, B-Natriuretic Peptide 339, Total Protein 7.4, Albumin 3.7 11/09/19 09:47: Mycoplasma pneumon IgM Non reactive 11/09/19 09:50: Influenza Type A Ag Negative, Influenza Type B Ag Negative 11/10/19 06:30: WBC 14.1 H D, RBC 4.97, Hgb 15.0, Hct 43.3, MCV 87.1, MCH 30.2, MCHC 34.6, RDW 12.3, Plt Count 206, MPV 9.5, Immature Gran % (Auto) 2.60 H, Immature Gran # (Auto) 0.37 H, Neutrophils % 80.8 H, Lymphocytes % 9.9 L, Monocytes % 6.4, Eosinophils % 0.1, Basophils % 0.2, Nucleated RBC % 0.0, Neutrophils # 11.3 H, Lymphocytes # 1.39 L, Monocytes # 0.9, Eosinophils # 0.0, Absolute Basophils 0.0 11/10/19 06:30: Sodium 139, Plasma Sodium 141, Potassium 3.3 L, Chloride 102, Carbon Dioxide 27.4, Anion Gap 12.9, BUN 30 H, Creatinine 1.30, Est GFR (Non-Af Amer) 58 L, BUN/Creatinine Ratio 23.1 H, Random Glucose 202 H, Calcium 10.0 11/10/19 06:30: Mean Blood Glucose 137, Hemoglobin A1c 6.7 H Discharge Location: Home Disposition: Home Health Service Home Health Agency: Other - [facility] Condition: Fair Discharge Activity: Activity as tolerated Discharge Diet: Consistent carbs Referrals: Gallito Preston MD [Primary Care Provider] - Problem Oriented Discharge Instructions to Patient/Family: Chronic Obstructive Pulmonary Disease, [id number] Additional Patient Instructions (free text): Resume [facility] at discharge, Please call and fax discharge information to them. Follow up appointment with Dr. Preston in 1 week. Prescriptions (Any new or edited meds): Sertraline HCl [Zoloft] 150 mg PO DAILY #45 tab Transmission Status: Pending to [facility] #[id number] Complete Home Medications List: Complete Home Medication List: spironolactone 25 mg tablet 50 mg PO DAILY tab 06/09/18 Furosemide [Lasix] 80 mg PO 0600,1400 12/20/18 Albuterol Sulfate [Albuterol Sulfate Hfa] 8.5 gm INHALATION DAILY 03/05/19 metoprolol tartrate 50 mg tablet 25 mg PO BID tab 06/16/19 simvastatin 40 mg tablet 20 mg PO HS tab 06/16/19 Acetaminophen [Tylenol] 1,000 mg PO HS PRN 10/04/19 Albuterol Sulfate/Ipratropium [Duoneb 2.5-0.5MG/3ML Soln] 3 ml INHALATION QID #25 nebu 10/07/19 minoxidil 10 mg tablet 10 mg PO DAILY 10/13/19 Fexofenadine HCl [Aller-Ease] 180 mg PO DAILY PRN 11/09/19 Melatonin/Pyridoxine HCl (B6) [Melatonin 3 mg Tablet] 6 mg PO HS 11/09/19 Tiotropium [place] [Spiriva] 18 mcg INHALATION DAILY PRN 11/09/19 Sertraline HCl [Zoloft] 150 mg PO DAILY #45 tab 11/14/19
[2019-11-14 16:21] VITALS: BP 134/78
== END 2019-11-14 16:20 | disposition home health service (06) ==
LOC: ER 09:05 → MS 09:05
PROVIDERS: ADMIT Internal Medicine; ATTEND Internal Medicine
DX: G12.21 Amyotrophic lateral sclerosis; E78.2 Mixed hyperlipidemia; G47.30 Sleep apnea, unspecified; I48.92 Unspecified atrial flutter; R06.02 Shortness of breath; I10 Essential (primary) hypertension
CPT/HCPCS: 36415; 36600; 71010; 71045; 80048; 80053; 81001; 82803; 83036; 83519; 83735; 83880; 84484; 85025; 86738; 87400; 87449; 93005; 94640; 94660; 94664; 96374; 96375; 97110; 97116; 97161; 99285; 99291; G0378

== ENCOUNTER 2019-12-27 12:53 | Inpatient (IN) ==
[2019-12-27] MEDS ORDERED: FUROSEMIDE 10 MG/ML VIAL IV ONE (14:11)
[2019-12-27 14:43] LABS: Hematocrit 47.5 % (42.0-52.0); Mean Cell Volume 89.6 fl (78-100); Mean Corpuscular Hemoglobin 30.2 pg (27-31); Mean Corpuscular Hgb Conc 33.7 g/dl (32-36); Mean Platelet Volume 9.3 fl (8-11.3); Neutrophil # 7.3 K/mm3 (1.3-6.0); Platelet Count 172 K/mm3 (150-450); Red Cell Distribution Width 12.7 % (11.5-14.0); White Blood Count 9.7 K/mm3 (4.0-10.5)
[2019-12-27 14:57] LABS: Troponin I Less than 0.017 ng/mL (0.00-0.10)
[2019-12-27 14:58] LABS: ALT 19 U/L (19-67); AST 18 U/L (0-48); Albumin * 3.6 gm/dl (3.4-5.0); Alkaline Phosphatase * 76 U/L (50-170); Anion Gap 12.7 mmol/L (6.8-13.8); BNP * 1958 pg/mL (5-350); BUN/Creatinine Ratio 18.4 (9.0-21.6); Bilirubin, Total 0.6 mg/dL (0.0-1.1); Blood Urea Nitrogen 21 mg/dL (6-23); Carbon Dioxide 28.9 mmol/L (24-32.6); Chloride 104 mmol/L (97-106); Glucose * 146 mg/dL (70-110); Potassium 3.6 mmol/L (3.4-4.6); Sodium 142 mmol/L (132-142); Total Protein 7.3 gm/dL (6.2-8.2)
--- NOTE | 2019-12-27 16:59 | ERNOTE ---
Dyspnea - Date Date of Service: 12/27/19 - General Presenting Symptoms: shortness of breath, difficulty of breathing, wheezing Time Seen by Provider: 12/27/19 14:09 Source: patient, family Exam Limitations: no limitations - Immun/Allergies/Home Medications Immunizations: IMMUNIZATION HX Immunizations Up to Date Yes History of Influenza Vaccine Yes Hx Pneumococcal Vaccination Yes Allergies/Adverse Reactions: Allergies ibuprofen Adverse Reaction (Unknown, Verified 11/09/19 09:19) thins blood too much Chiggers Adverse Reaction (Unknown, Uncoded 11/09/19 09:19) Home Medications: HOME MEDICATIONS spironolactone 25 mg tablet 50 mg PO DAILY tab 06/09/18 [Last Taken Unknown] Furosemide [Lasix] 80 mg PO 0600,1400 12/20/18 [Last Taken Unknown] Albuterol Sulfate [Albuterol Sulfate Hfa] 8.5 gm INHALATION DAILY 03/05/19 [Last Taken Unknown] metoprolol tartrate 50 mg tablet 25 mg PO BID tab 06/16/19 [Last Taken Unknown] simvastatin 40 mg tablet 20 mg PO HS tab 06/16/19 [Last Taken Unknown] Acetaminophen [Tylenol] 1,000 mg PO HS PRN 10/04/19 [Last Taken Unknown] Albuterol Sulfate/Ipratropium [Duoneb 2.5-0.5MG/3ML Soln] 3 ml INHALATION QID #25 nebu 10/07/19 [Last Taken Unknown] minoxidil 10 mg tablet 10 mg PO DAILY 10/13/19 [Last Taken Unknown] Fexofenadine HCl [Aller-Ease] 180 mg PO DAILY PRN 11/09/19 [Last Taken Unknown] Melatonin/Pyridoxine HCl (B6) [Melatonin 3 mg Tablet] 6 mg PO HS 11/09/19 [Last Taken Unknown] Tiotropium [place] [Spiriva] 18 mcg INHALATION DAILY PRN 11/09/19 [Last Taken Unknown] Sertraline HCl [Zoloft] 150 mg PO DAILY #45 tab 11/14/19 [Last Taken Unknown] - History of Present Illness Narrative: patient presents to ed with c/o incrfeaased dyspnea and fluid retention, has been coughing mina sputum Severity: moderate 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 Initiating event: Reports: upper resp illness Frequency of episodes: Reports: occassional episodes Modifying Factors - (Improves): Reports: nothing Modifying Factors (Worsens): Reports: coughing Associated Symptoms-Dyspnea: Reports: fever/chills, lightheadedness Prior Treatment: Reports: recently seen, treated by physician Review of Systems - Review of Systems Constitutional: Present: See HPI, weakness, fatigue, malaise EYE: Present: no symptoms reported ENT: Present: no symptoms reported Respiratory: Present: See HPI, shortness of breath, cough, orthopnea, wheezing Cardiology: Present: no symptoms reported Gastrointestinal/Abdominal: Present: no symptoms reported Genitourinary: Present: no symptoms reported Musculoskeletal: Present: no symptoms reported Skin: Present: no symptoms reported Neurological: Present: no symptoms reported Endocrine: Present: no symptoms reported Hematologic/Lymphatic: Present: no symptoms reported Medical History (Last Reviewed 12/27/19 @ 13:19 by Yarelis Meneses RN) ALS (amyotrophic lateral sclerosis) Atrial flutter COPD (chronic obstructive pulmonary disease) Congestive heart failure (CHF) Sleep apnea HLD (hyperlipidemia) HTN (hypertension) Surgical History: Surgical History (Last Reviewed 12/27/19 @ 13:19 by Yarelis Meneses RN) Hx of prior ablation treatment Status post total hip replacement, right 02/12/2015 Status post total knee replacement, left 09/2004 History of sinus surgery Onset Date: ~1989 Hx of appendectomy Age 11 Hx of cholecystectomy Onset Date: ~1991 Laparoscopic Hx of tonsillectomy Family History: Family History (Last Reviewed 12/27/19 @ 13:19 by Yarelis Meneses RN) Father Cancer 2008 Alive and well. 2002 had prostate Ca. Mother , Age 79 CVA (cerebral vascular accident) series of CVA Social History: (Last Reviewed 12/27/19 @ 13:19 by Yarelis Meneses RN) Social History: Marital status: household members: spouse current occupational status: retired Tobacco: Smoking Status: Never smoker Tobacco: How many years used: 13 Alcohol: details: Rare Beer Physical Exam - Physical Exam General Appearance: Present: mild distress, anxious Head Exam: Present: normal inspection, no evidence of injury Eye Exam: Normal inspection: bilateral, PERRL: bilateral, EOMI: bilateral Ears, Nose, Throat: Present: normal ENT inspection, normal pharynx Neck: Present: normal inspection, nontender Respiratory: Present: no respiratory distress, decreased breath sounds, rhonchi, wheezing Cardiovascular/Chest: Present: regular rate, rhythm, no murmur, normal periph eral pulses Gastrointestinal/Abdominal: Present: normal bowel sounds, nontender, nondistended, soft, no organomegaly Back Exam: Present: normal inspection, normal range of motion, no CVA tenderness, no vertebral tenderness Extremity Exam: Present: normal inspection, non-tender, normal range of motion, pedal edema Neurological Exam: Present: alert, oriented, normal mood/affect, no motor/sensory deficits Skin Exam: Present: normal color, warm/dry Lymphatic Exam: Present: no adenopathy Progress - Date and Time Seen: Date and Time: 12/27/19 16:54 condition unchanged,discussed case with dr castellanos, to admit to obs with dx pneonia, chf - Results and Orders Patient's Lab Results:: I have reviewed the patient's lab results. - Vital Signs Patient's Vital Signs:: I have reviewed the patient's vital signs. Vital Signs: Vital Signs 12/27/19 13:15 12/27/19 15:04 Temperature 36.8 C Pulse Rate 88 88 Respiratory Rate 16 Blood Pressure 120/71 106/67 O2 Sat by Pulse Oximetry 94 - EKG EKG #1 EKG: atrial fibrillation - X-Ray X-Ray #1 X-Ray: chest Interpretation: Interp. by tx - pleural effusion, left lower lobe pneumonia - Progress/Reassessment Chief Complaint: Dyspnea Progress:: Unchanged - Transfer of Care Expected Disposition: Admit Plan - Plan Plan: to admit to observation Departure Clinical Impression: Pneumonia, CHF (congestive heart failure) - Departure Disposition: Short Term Hospital Inpatient Condition: Serious
--- NOTE | 2019-12-27 17:07 | HP ---
Chief Complaint - Chief Complaint Date of Service: 12/27/19 Time of Service: 16:53 Chief Complaint: shortness of breath History of Present Illness: Nick Draper is a 74-year-old white male with past medical history of hypertension, chronic atrial fibrillation, ALS, COPD, AAA, who was admitted on 12/27/2019 because of increasing shortness of breath. 3 days prior to admission the patient started having cough productive of yellowish, mina phlegm associated with shortness of breath, increased with activity. His shortness of breath did not improve with his breathing treatments and he had been having excessive sweating at nights likely due to fever and chills. Today he developed chest pain, nonradiating and so the brought him to the emergency room. His white blood cell count was within normal limits but his chest x-ray showed left basilar pneumonia with left small pleural effusion. His ABG showed a pH of 7.44/PCO2 40.3/PO2 of 62.9/HCO3 of 26.7/oxygen saturation of 92.9%. His EKG showed atrial fibrillation. His troponin was less than 0.017. His BNP was elevated at 1958. He was then given IV lasix and admitted for further treatment and evaluation. The patient was seen and examined in the emergency room. Medical History (Last Reviewed 12/27/19 @ 13:19 by Yarelis Meneses RN) ALS (amyotrophic lateral sclerosis) Atrial flutter COPD (chronic obstructive pulmonary disease) Congestive heart failure (CHF) Sleep apnea HLD (hyperlipidemia) HTN (hypertension) Surgical History: Surgical History (Last Reviewed 12/27/19 @ 13:19 by Yarelis Meneses RN) Hx of prior ablation treatment Status post total hip replacement, right 02/12/2015 Status post total knee replacement, left 09/2004 History of sinus surgery Onset Date: ~1989 Hx of appendectomy Age 11 Hx of cholecystectomy Onset Date: ~1991 Laparoscopic Hx of tonsillectomy Family History: Family History (Last Reviewed 12/27/19 @ 13:19 by Yraelis Meneses RN) Father Cancer 2007 Alive and well. 2001 had prostate Ca. Mother , Age 79 CVA (cerebral vascular accident) series of CVA Social History: (Last Reviewed 12/27/19 @ 13:19 by Yarelis Meneses RN) Social History: Marital status: household members: spouse current occupational status: retired Tobacco: Smoking Status: Never smoker Tobacco: How many years used: 13 Alcohol: details: Rare Beer Review Of Systems (GEN) - Review of Systems Generalized/Overall Review: Present: Weakness, Chills, Fever, Diaphoresis EENTM: Absent: Blurred Vision Respiratory: Present: Cough, Shortness of Breath. Absent: Orthopnea Cardiac: Present: Chest Pain. Absent: Edema, Palpitations Abdominal: Absent: Nausea, Vomiting Genitourinary: Absent: Urgency, Frequency Musculoskeletal: Absent: Joint Pain Neurological: Absent: Headache Skin: Absent: Lesions Misc: All systems neg except as marked Immunizations: IMMUNIZATION HX Immunizations Up to Date Yes History of Influenza Vaccine Yes Hx Pneumococcal Vaccination Yes Allergies/Adverse Reactions: Allergies Allergy/AdvReac Type Severity Reaction Status Date / Time ibuprofen AdvReac Unknown thins Verified 11/09/19 09:19 blood too much [place]iggers AdvReac Unknown Uncoded 11/09/19 09:19 Home Medications: HOME MEDICATIONS spironolactone 25 mg tablet 50 mg PO DAILY tab 06/09/18 [Last Taken Unknown] Furosemide [Lasix] 80 mg PO 0600,1400 12/20/18 [Last Taken Unknown] Albuterol Sulfate [Albuterol Sulfate Hfa] 8.5 gm INHALATION DAILY 03/05/19 [Last Taken Unknown] metoprolol tartrate 50 mg tablet 25 mg PO BID tab 06/16/19 [Last Taken Unknown] simvastatin 40 mg tablet 20 mg PO HS tab 06/16/19 [Last Taken Unknown] Acetaminophen [Tylenol] 1,000 mg PO HS PRN 10/04/19 [Last Taken Unknown] Albuterol Sulfate/Ipratropium [Duoneb 2.5-0.5MG/3ML Soln] 3 ml INHALATION QID #25 nebu 10/07/19 [Last Taken Unknown] minoxidil 10 mg tablet 10 mg PO DAILY 10/13/19 [Last Taken Unknown] Fexofenadine HCl [Aller-Ease] 180 mg PO DAILY PRN 11/09/19 [Last Taken Unknown] Melatonin/Pyridoxine HCl (B6) [Melatonin 3 mg Tablet] 6 mg PO HS 11/09/19 [Last Taken Unknown] Tiotropium [place] [Spiriva] 18 mcg INHALATION DAILY PRN 11/09/19 [Last Taken Unknown] Sertraline HCl [Zoloft] 150 mg PO DAILY #45 tab 11/14/19 [Last Taken Unknown] Exam - Exam Vital Signs: Vital Signs - Last Taken Temp 36.8 C 12/27/19 13:15 Pulse 88 12/27/19 15:04 Resp 16 12/27/19 13:15 BP 106/67 12/27/19 15:04 Pulse Ox 94 12/27/19 13:15 Constitutional: Present: Alert, Oriented x3, Cooperative, Obese ENT Exam: Present: hearing grossly normal Eye Exam: bilateral eye: normal inspection, PERRL, EOMI Neck: Present: supple. Absent: lymphadenopathy (R), lymphadenopathy (L) Respiratory: Present: decreased breath sounds, crackles, wheezing - ocassional Cardiovascular/Chest: Present: no JVD, no murmur, irregularly irregular Abdomen: Present: Normal bowel sounds, soft, nontender, obese Extremity: Present: no calf tenderness, pedal edema Diagnostic Studies: Abnormal Lab Results 12/27/19 12/27/19 12/27/19 Range/Units 14:30 14:30 14:32 Immature Gran % (Auto) 2.20 H (0.001-0.429) % Immature Gran # (Auto) 0.21 H (0.000-0.0310) K/mm3 Lymphocytes % 13.5 L (20-51) % Neutrophils # 7.3 H (1.3-6.0) K/mm3 Lymphocytes # 1.31 L (1.5-3.5) k/mm3 pO2 62.9 L (83.0-108.0) mmHg Total CO2 27.9 H (19.0-24.0) mmol/L ABG O2 Sat (Measured) 92.9 L (94.0-98.0) % Plasma Sodium 143 H (130-142) mmol/L Random Glucose 146 H (70-110) mg/dL B-Natriuretic Peptide 1958 H (5-350) pg/mL Laboratory Results WBC 9.7 K/mm3 (4.0-10.5) 12/27/19 14:30 RBC 5.30 M/mm3 (4.7-6.0) 12/27/19 14:30 Hgb 16.0 gm/dL (13.5-18.0) 12/27/19 14:30 Hct 47.5 % (42.0-52.0) 12/27/19 14:30 MCV 89.6 fl (78-100) 12/27/19 14: MCH 30.2 pg (27-31) 12/27/19 14: MCHC 33.7 g/dl (32-36) 12/27/19 14: RDW 12.7 % (11.5-14.0) 12/27/19 14: Plt Count 172 K/mm3 (150-450) 12/27/19 14: MPV 9.3 fl (8-11.3) 12/27/19 14: Immature Gran % (Auto) 2.20 % (0.001-0.429) H 12/27/19 14: Immature Gran # (Auto) 0.21 K/mm3 (0.000-0.0310) H 12/27/19 14: Neutrophils % 75.0 % (42-75.0) 12/27/19 14: Lymphocytes % 13.5 % (20-51) L 12/27/19 14: Monocytes % 7.0 % (0.0-9) 12/27/19 14: Eosinophils % 1.7 % (0.0-3.0) 12/27/19 14: Basophils % 0.6 % (0.0-1.0) 12/27/19 14: Nucleated RBC % 0.0 k/mm3 (0-1) 12/27/19 14: Neutrophils # 7.3 K/mm3 (1.3-6.0) H 12/27/19 14: Lymphocytes # 1.31 k/mm3 (1.5-3.5) L 12/27/19 14: Monocytes # 0.7 k/mm3 (0.0-1.0) 12/27/19 14: Eosinophils # 0.2 k/mm3 (0.0-0.7) 12/27/19: Absolute Basophils 0.1 k/mm3 (0.0-0.1) 12/27/19 14:30 pCO2 40.3 mmHg (35.0-48.0) 12/27/19 14: pO2 62.9 mmHg (83.0-108.0) L 12/27/19 14: HCO3 26.7 mmol/L (21.0-28.0) 12/27/19 14:32 Total CO2 27.9 mmol/L (19.0-24.0) H 12/27/19 14:32 Base Excess 2.4 mmol/L (-2.0-3.0) 12/27/19 14:32 ABG pH 7.44 (7.35-7.45) 12/27/19 14:32 ABG O2 Sat (Measured) 92.9 % (94.0-98.0) L 12/27/19 14:32 Sodium 142 mmol/L (132-142) 12/27/19 14:30 Plasma Sodium 143 mmol/L (130-142) H 12/27/19 14:30 Potassium 3.6 mmol/L (3.4-4.6) 12/27/19 14:30 Chloride 104 mmol/L (97-106) 12/27/19 14:30 Carbon Dioxide 28.9 mmol/L (24-32.6) 12/27/19 14:30 Anion Gap 12.7 mmol/L (6.8-13.8) 12/27/19 14:30 BUN 21 mg/dL (6-23) 12/27/19 14:30 Creatinine 1.14 mg/dL (0.4-1.4) 12/27/19 14:30 Est GFR (Non-Af Amer) 67 mL/min (60-130) 12/27/19 14:30 BUN/Creatinine Ratio 18.4 (9.0-21.6) 12/27/19 14:30 Random Glucose 146 mg/dL (70-110) H 12/27/19 14:30 Calcium 10.0 mg/dL (7.9-10.9) 12/27/19 14:30 Calcium Adj for Albumin 10.0 mg/dL (8.4-10.2) 12/27/19 14:30 Total Bilirubin 0.6 mg/dL (0.0-1.1) 12/27/19 14:30 AST 18 U/L (0-48) 12/27/19 14:30 ALT 19 U/L (19-67) 12/27/19 14:30 Alkaline Phosphatase 76 U/L (50-170) 12/27/19 14:30 Troponin I Less than 0.017 ng/mL (0.00-0.10) 12/27/19 14:30 B-Natriuretic Peptide 1958 pg/mL (5-350) H 12/27/19 14:30 Total Protein 7.3 gm/dL (6.2-8.2) 12/27/19 14:30 Albumin 3.6 gm/dl (3.4-5.0) 12/27/19 14:30 Assessment/Plan - Narrative Narrative: Nick Draper was admitted for shortness of breath, coughing productive of mina sputum with a chest x-ray showing left basilar pneumonia. We will start him on IV Levaquin and breathing treatments, incentive spirometry and possible IV Solu-Medrol for COPD exacerbation. We will keep him on oxygen to keep oxygen saturation above 93%. He is PO2 on his ABG gas was only 62 At room air. We in the morning will get an echocardiogram for his elevated BNP as I do not see one in our system. His congestive heart failure likely is diastolic with his history of hypertension. We will continue with his diuretics. - Assessment/Plan (1) SOB (shortness of breath) Problem: Acute (2) Pneumonia Problem: Acute (3) COPD exacerbation Problem: Acute (4) Elevated brain natriuretic peptide (BNP) level Problem: Acute (5) Hypoxia Problem: Acute (6) Afib Problem: Chronic Qualifiers: (7) Hyperlipemia Problem: Chronic Qualifiers: (8) HTN (hypertension) Problem: Chronic Qualifiers: (9) AAA (abdominal aortic aneurysm) Problem: Chronic Qualifiers: (10) ALS (amyotrophic lateral sclerosis) Problem: Chronic
[2019-12-27] MEDS ORDERED: ALBUTEROL SULFATE 2.5 MG/0.5 ML VIAL.NEB IH PRN (17:14)
[2019-12-27] MEDS ORDERED: ACETAMINOPHEN 500 MG TABLET PO PRN (17:29)
[2019-12-27] MEDS: LEVOFLOXACIN IN DEXTROSE 5 % 500 MG/100 ML BAG IV SCH (18:38)
[2019-12-27] MEDS: METHYLPREDNISOLONE SOD SUCC/PF 40 MG/ML VIAL IV SCH (18:39)
[2019-12-27] MEDS: ALBUTEROL SULFATE/IPRATROPIUM 3 ML NEBU IH SCH (18:40)
[2019-12-27] MEDS: METOPROLOL TARTRATE 25 MG TABLET PO SCH (20:06)
[2019-12-27] MEDS: SIMVASTATIN 20 MG TABLET PO SCH (20:07)
[2019-12-27] MEDS: MELATONIN 3,000 MCG TABLET PO SCH (20:07)
[2019-12-28] MEDS: ALBUTEROL SULFATE/IPRATROPIUM 3 ML NEBU IH SCH ×4 (00:02→18:12)
[2019-12-28] MEDS: METHYLPREDNISOLONE SOD SUCC/PF 40 MG/ML VIAL IV SCH ×4 (00:12→18:05)
[2019-12-28] MEDS: FUROSEMIDE 80 MG TABLET PO SCH ×2 (05:37→14:55)
[2019-12-28] MEDS ORDERED: ALBUTEROL SULFATE 2.5 MG/0.5 ML VIAL.NEB IH SCH ×2 (07:00→09:00)
[2019-12-28] MEDS: ALBUTEROL SULFATE 2.5 MG/0.5 ML VIAL.NEB IH SCH (07:09)
--- NOTE | 2019-12-28 08:28 | PN ---
Subjective - Date and Time Seen Date: 12/28/19 Time: 08:10 Objective - Review of Systems Generalized/Overall Review: Reports: Weakness, Diaphoresis. Denies: Chills, Fever EENTM: Denies: Blurred Vision Respiratory: Reports: Cough, Shortness of Breath Cardiac: Denies: Chest Pain, Edema, Palpitations Abdominal: Denies: Nausea, Vomiting Genitourinary Symptoms: Denies: Urgency, Frequency Musculoskeletal Complaints: Denies: Joint Pain Neurological: Reports: Weakness. Denies: Headache - Vitals Vitals: Last Vital Signs Temp 36.9 C 12/28/19 05:00 Pulse 85 12/28/19 07:19 Resp 18 12/28/19 07:19 BP 127/82 12/28/19 07:19 Pulse Ox 92 L 12/28/19 07:19 - Abnormal Lab Findings Abnormal Lab Findings: Abnormal Lab Results 12/27/19 12/27/19 12/27/19 Range/Units 14:30 14:30 14:32 Immature Gran % (Auto) 2.20 H (0.001-0.429) % Immature Gran # (Auto) 0.21 H (0.000-0.0310) K/mm3 Lymphocytes % 13.5 L (20-51) % Neutrophils # 7.3 H (1.3-6.0) K/mm3 Lymphocytes # 1.31 L (1.5-3.5) k/mm3 pO2 62.9 L (83.0-108.0) mmHg Total CO2 27.9 H (19.0-24.0) mmol/L ABG O2 Sat (Measured) 92.9 L (94.0-98.0) % Plasma Sodium 143 H (130-142) mmol/L Random Glucose 146 H (70-110) mg/dL B-Natriuretic Peptide 1958 H (5-350) pg/mL - Exam Constitutional: Present: Alert, Oriented x3, Cooperative ENT Exam: Present: hearing grossly normal Neck: Present: supple. Absent: lymphadenopathy (R), lymphadenopathy (L) Respiratory: Present: decreased breath sounds, No rales Cardiovascular/Chest: Present: regular rate, rhythm, no JVD, no murmur Abdomen: Present: Normal bowel sounds, soft, nontender, obese Extremity: Present: no calf tenderness, pedal edema Assessment/Plan Plan Narrative: Nick Hollins was admitted for shortness of breath and was found to have pneumonia on his chest x-ray left basilar lung with small pleural effusion. His BNP was also elevated likely due to congestive heart failure, diastolic dysfunction due to his chronic hypertension. He continues to be short of breath oxygenating 92% on 3.5 L. He does have ALS with diminished respiratory excursions which compounds his COPD exacerbation and expectorating his yellowish mina sputum. We will continue with present management and current medications and will transfer him to acute status. He has an echocardiogram scheduled for today. - Problems/Diagnosis (1) SOB (shortness of breath) Problem: Acute (2) Pneumonia Problem: Acute (3) COPD exacerbation Problem: Acute (4) Elevated brain natriuretic peptide (BNP) level Problem: Acute Narrative: likely due to CHF, diastolic dysfucntion (5) CHF (congestive heart failure) Problem: Suspected Qualifiers: Heart failure type: unspecified Heart failure chronicity: acute on chronic Qualified Code(s): I50.9 - Heart failure, unspecified Narrative: for Echo today (6) Hypoxia Problem: Acute (7) Hyperlipemia Problem: Chronic Qualifiers: (8) HTN (hypertension) Problem: Chronic Qualifiers: (9) AAA (abdominal aortic aneurysm) Problem: Chronic Qualifiers: (10) ALS (amyotrophic lateral sclerosis) Problem: Chronic (11) Sleep apnea Problem: Chronic Qualifiers: Sleep apnea type: unspecified type Qualified Code(s): G47.30 - Sleep apnea, unspecified
[2019-12-28] MEDS: SPIRONOLACTONE 25 MG TABLET PO SCH (08:50)
[2019-12-28] MEDS: ENOXAPARIN SODIUM 40 MG/0.4 ML SYRG SC SCH (08:51)
[2019-12-28] MEDS: METOPROLOL TARTRATE 25 MG TABLET PO SCH ×2 (08:52→20:03)
[2019-12-28] MEDS: MINOXIDIL 2.5 MG TABLET PO SCH (08:53)
[2019-12-28] MEDS: SERTRALINE HCL 50 MG TABLET PO SCH (08:53)
[2019-12-28] MEDS ORDERED: FUROSEMIDE 10 MG/ML VIAL IV SCH (09:00)
--- NOTE | 2019-12-28 11:16 | ANES ---
Anesthesia Procedure Note Procedure Note: ANESTHESIA PROCEDURE NOTE Date of procedure: 12/28/2019. Time of procedure: 1105. Performed by: Nehemiah Armstrong CRNA Lens Mounter: None . Preprocedure diagnosis: Difficult IV access. Pneumonia. Need for IV antibiotic. Post procedure diagnosis: Same. Procedure: IV start Indications: Difficult IV access. Findings: 22-gauge Angiocath IV started in patient's left wrist EBL: Minimal. Fluids: N/A. Specimen: N/A. Post procedure condition: The patient tolerated the procedure well. No complica tions were noted. Thank you for this consultation Nehemiah Armstrong CRNA
[2019-12-28] MEDS: LEVOFLOXACIN IN DEXTROSE 5 % 500 MG/100 ML BAG IV SCH (18:07)
[2019-12-28] MEDS: SIMVASTATIN 20 MG TABLET PO SCH (20:03)
[2019-12-28] MEDS: MELATONIN 3,000 MCG TABLET PO SCH (20:03)
[2019-12-29] MEDS: ALBUTEROL SULFATE/IPRATROPIUM 3 ML NEBU IH SCH ×4 (00:09→18:13)
[2019-12-29] MEDS: METHYLPREDNISOLONE SOD SUCC/PF 40 MG/ML VIAL IV SCH ×2 (00:30→06:06)
[2019-12-29] MEDS: FUROSEMIDE 80 MG TABLET PO SCH ×2 (06:06→13:55)
[2019-12-29] MEDS: ALBUTEROL SULFATE 2.5 MG/0.5 ML VIAL.NEB IH SCH (06:20)
--- NOTE | 2019-12-29 08:31 | PN ---
Subjective - Date and Time Seen Date: 12/29/19 Time: 08:26 Subjective Narrative: Patient is feeling better. Oxygenating better. will do labs today. Objective - Review of Systems Generalized/Overall Review: Reports: Weakness. Denies: Chills, Fever EENTM: Denies: Blurred Vision Respiratory: Reports: Cough, Shortness of Breath. Denies: Orthopnea, Wheezing Cardiac: Denies: Chest Pain, Edema Abdominal: Denies: Nausea, Vomiting Genitourinary Symptoms: Denies: Urgency, Frequency Musculoskeletal Complaints: Denies: Joint Pain Neurological: Denies: Headache Misc: All systems neg except as marked - Vitals Vitals: Last Vital Signs Temp 36.6 C 12/29/19 06:00 Pulse 86 12/29/19 06:30 Resp 20 12/29/19 06:30 BP 140/84 12/29/19 06:06 Pulse Ox 97 12/29/19 06:20 - Exam Constitutional: Present: Alert, Oriented x3, Cooperative ENT Exam: Present: hearing grossly normal Neck: Present: supple. Absent: lymphadenopathy (R), lymphadenopathy (L) Respiratory: Present: decreased breath sounds, No rales, No wheezing Cardiovascular/Chest: Present: regular rate, rhythm, no JVD, no murmur Abdomen: Present: Normal bowel sounds, soft, nontender, obese Extremity: Present: no calf tenderness, pedal edema Assessment/Plan Plan Narrative: Eduarda was admitted for pneumonia with acute COPD exacerbation. His echocardiogram showed yesterday mild left ventricular hypertrophy, ejection fraction of 60 to 65%, positive diastolic dysfunction, positive mild pulmonary hypertension with RVSP of 46 mmHg. We will change him to oral antibiotics and oral prednisone and discharge planning in the morning. ADDENDUM: His WBC is 16 due to IV solumedrol. His Cr bumped up to 1.42 due to diuresis and his BNP wnet down to 580. - Problems/Diagnosis (1) SOB (shortness of breath) Problem: Acute (2) Pneumonia Problem: Acute (3) COPD exacerbation Problem: Acute (4) Elevated brain natriuretic peptide (BNP) level Problem: Acute (5) CHF (congestive heart failure) Problem: Suspected Qualifiers: Heart failure type: unspecified Heart failure chronicity: acute on chronic Qualified Code(s): I50.9 - Heart failure, unspecified (6) Hypoxia Problem: Acute (7) Hyperlipemia Problem: Chronic Qualifiers: (8) HTN (hypertension) Problem: Chronic Qualifiers: (9) AAA (abdominal aortic aneurysm) Problem: Chronic Qualifiers: (10) ALS (amyotrophic lateral sclerosis) Problem: Chronic (11) Sleep apnea Problem: Chronic Qualifiers: Sleep apnea type: unspecified type Qualified Code(s): G47.30 - Sleep apnea, unspecified
[2019-12-29 08:43] LABS: Hematocrit 48.6 % (42.0-52.0); Hemoglobin 16.6 gm/dL (13.5-18.0); Mean Cell Volume 88.7 fl (78-100); Mean Corpuscular Hemoglobin 30.3 pg (27-31); Mean Corpuscular Hgb Conc 34.2 g/dl (32-36); Mean Platelet Volume 9.4 fl (8-11.3); Neutrophil # 14.5 K/mm3 (1.3-6.0); Platelet Count 211 K/mm3 (150-450); Red Blood Count 5.48 M/mm3 (4.7-6.0); Red Cell Distribution Width 12.6 % (11.5-14.0); White Blood Count 16.2 K/mm3 (4.0-10.5)
[2019-12-29] MEDS: ENOXAPARIN SODIUM 40 MG/0.4 ML SYRG SC SCH (08:54)
[2019-12-29] MEDS: SERTRALINE HCL 50 MG TABLET PO SCH (08:55)
[2019-12-29] MEDS: MINOXIDIL 2.5 MG TABLET PO SCH (08:56)
[2019-12-29 08:57] LABS: Anion Gap 15.8 mmol/L (6.8-13.8); BUN/Creatinine Ratio 21.8 (9.0-21.6); Calcium * 10.3 mg/dL (7.9-10.9); Carbon Dioxide 28.6 mmol/L (24-32.6); Estimated Creat Clear 54.7; Potassium 3.4 mmol/L (3.4-4.6)
[2019-12-29] MEDS: METOPROLOL TARTRATE 25 MG TABLET PO SCH ×2 (08:58→21:40)
[2019-12-29] MEDS: SPIRONOLACTONE 25 MG TABLET PO SCH (08:58)
[2019-12-29] MEDS: predniSONE 20 MG TABLET PO SCH (08:58)
--- NOTE | 2019-12-29 10:27 | ECHO ---
This report is available in the EMR
[2019-12-29] MEDS: LEVOFLOXACIN IN DEXTROSE 5 % 500 MG/100 ML BAG IV SCH (17:23)
[2019-12-29] MEDS: SIMVASTATIN 20 MG TABLET PO SCH (21:40)
[2019-12-29] MEDS: MELATONIN 3,000 MCG TABLET PO SCH (21:40)
[2019-12-30] MEDS: ALBUTEROL SULFATE/IPRATROPIUM 3 ML NEBU IH SCH ×2 (00:02→06:14)
[2019-12-30] MEDS: FUROSEMIDE 80 MG TABLET PO SCH (05:37)
[2019-12-30] MEDS: ALBUTEROL SULFATE 2.5 MG/0.5 ML VIAL.NEB IH SCH (06:15)
[2019-12-30] MEDS: SPIRONOLACTONE 25 MG TABLET PO SCH (08:32)
[2019-12-30] MEDS: ENOXAPARIN SODIUM 40 MG/0.4 ML SYRG SC SCH (08:32)
[2019-12-30] MEDS: MINOXIDIL 2.5 MG TABLET PO SCH (08:33)
[2019-12-30] MEDS: SERTRALINE HCL 50 MG TABLET PO SCH (08:33)
[2019-12-30] MEDS: predniSONE 20 MG TABLET PO SCH (08:33)
[2019-12-30] MEDS: METOPROLOL TARTRATE 25 MG TABLET PO SCH (08:33)
[2019-12-30 09:36] LABS: Hematocrit 49.4 % (42.0-52.0); Hemoglobin 16.7 gm/dL (13.5-18.0); Mean Cell Volume 89.2 fl (78-100); Mean Corpuscular Hemoglobin 30.1 pg (27-31); Mean Corpuscular Hgb Conc 33.8 g/dl (32-36); Mean Platelet Volume 9.6 fl (8-11.3); Neutrophil # 11.7 K/mm3 (1.3-6.0); Neutrophil % 80.5 % (42-75.0); Platelet Count 212 K/mm3 (150-450); Red Blood Count 5.54 M/mm3 (4.7-6.0); Red Cell Distribution Width 12.5 % (11.5-14.0); White Blood Count 14.5 K/mm3 (4.0-10.5)
--- NOTE | 2019-12-30 09:47 | DS ---
Date of Discharge:: 12/30/19 Hospital Course: Discharge summary written using chart documentation, as today is the first I have seen this patient. He went to the ED for shortness of breath and wheeze. He also complained of some chest pain, and work-up was negative. He was treated for pneumonia and COPD exacerbation with Levaquin and Solu-Medrol. He had an elevated BNP, and echocardiogram was done, which showed pulmonary hypertension with RVSP of 46, mild LVH, and grade 1 diastolic dysfunction. His oxygen requirements decreased to his baseline of 2. He felt comfortable going home on the day of discharge. Procedures Performed: see notes below - echocardiogram Results and Findings: Pending Mircobiology Results 12/27/19 14:47 Blood Blood Culture - Preliminary NO GROWTH AFTER 48 HOURS 12/27/19 14:30 Blood Blood Culture - Preliminary NO GROWTH AFTER 48 HOURS Lab Pending Results 12/27/19 14:30: WBC 9.7, RBC 5.30, Hgb 16.0, Hct 47.5, MCV 89.6, MCH 30.2, MCHC 33.7, RDW 12.7, Plt Count 172, MPV 9.3, Immature Gran % (Auto) 2.20 H, Immature Gran # (Auto) 0.21 H, Neutrophils % 75.0, Lymphocytes % 13.5 L, Monocytes % 7.0, Eosinophils % 1.7, Basophils % 0.6, Nucleated RBC % 0.0, Neutrophils # 7.3 H, Lymphocytes # 1.31 L, Monocytes # 0.7, Eosinophils # 0.2, Absolute Basophils 0.1 12/27/19 14:30: Sodium 142, Plasma Sodium 143 H, Potassium 3.6, Chloride 104, Carbon Dioxide 28.9, Anion Gap 12.7, BUN 21, Creatinine 1.14, Est GFR (Non-Af Amer) 67, BUN/Creatinine Ratio 18.4, Random Glucose 146 H, Calcium 10.0, Calcium Adj for Albumin 10.0, Total Bilirubin 0.6, AST 18, ALT 19, Alkaline Phosphatase 76, Troponin I Less than 0.017, B-Natriuretic Peptide 1958 H, Total Protein 7.3, Albumin 3.6 12/27/19 14:32: pCO2 40.3, pO2 62.9 L, HCO3 26.7, Total CO2 27.9 H, Base Excess 2.4, ABG pH 7.44, ABG O2 Sat (Measured) 92.9 L 12/29/19 08:36: WBC 16.2 H D, RBC 5.48, Hgb 16.6, Hct 48.6, MCV 88.7, MCH 30.3, MCHC 34.2, RDW 12.6, Plt Count 211, MPV 9.4, Immature Gran % (Auto) 1.90 H, Immature Gran # (Auto) 0.31 H, Neutrophils % 90.0 H, Lymphocytes % 4.6 L, Monocytes % 3.2, Eosinophils % 0.1, Basophils % 0.2, Nucleated RBC % 0.0, Neutrophils # 14.5 H, Lymphocytes # 0.75 L, Monocytes # 0.5, Eosinophils # 0.0, Absolute Basophils 0.0 12/29/19 08:36: Sodium 139, Plasma Sodium 141, Potassium 3.4, Chloride 98, Carbon Dioxide 28.6, Anion Gap 15.8 H, BUN 31 H, Creatinine 1.42 H, Est GFR (Non-Af Amer) 52 L D, BUN/Creatinine Ratio 21.8 H, Random Glucose 212 H D, Calci um 10.3, B-Natriuretic Peptide 508 H Discharge Location: Home Disposition: Home Health Service Condition: Fair Discharge Activity: Activity as tolerated Discharge Diet: Resume usual diet Referrals: Gallito Preston MD [Primary Care Provider] - One Week Additional Patient Instructions (free text): [facility] from [place], Please call and fax discharge orders to them. Prescriptions (Any new or edited meds): Levofloxacin [Levaquin] 750 mg PO DAILY #7 tab Transmission Status: Pending to [facility] #[id number] Complete Home Medications List: Complete Home Medication List: spironolactone 25 mg tablet 50 mg PO DAILY tab 06/09/18 Furosemide [Lasix] 80 mg PO 0600,1400 12/20/18 Albuterol Sulfate [Albuterol Sulfate Hfa] 8.5 gm INHALATION DAILY 03/05/19 metoprolol tartrate 50 mg tablet 25 mg PO BID tab 06/16/19 simvastatin 40 mg tablet 20 mg PO HS tab 06/16/19 Acetaminophen [Tylenol] 1,000 mg PO HS PRN 10/04/19 Albuterol Sulfate/Ipratropium [Duoneb 2.5-0.5MG/3ML Soln] 3 ml INHALATION QID #25 nebu 10/07/19 minoxidil 10 mg tablet 10 mg PO DAILY 10/13/19 Fexofenadine HCl [Aller-Ease] 180 mg PO DAILY PRN 11/09/19 Melatonin/Pyridoxine HCl (B6) [Melatonin 3 mg Tablet] 6 mg PO HS 11/09/19 Tiotropium [place] [Spiriva] 18 mcg INHALATION DAILY PRN 11/09/19 Sertraline HCl [Zoloft] 150 mg PO DAILY #45 tab 11/14/19 Levofloxacin [Levaquin] 750 mg PO DAILY #7 tab 12/30/19
[2019-12-30 14:04] VITALS: BP 114/72
== END 2019-12-30 14:00 | disposition home health service (06) | DRG 190 ==
LOC: MS 12:53 → ER 12:53 → MS 17:57
PROVIDERS: ADMIT Internal Medicine; ATTEND Internal Medicine
DX: J44.0 Chronic obstructive pulmonary disease with (acute) lower respiratory infection; Z87.891 Personal history of nicotine dependence; G47.30 Sleep apnea, unspecified; E78.5 Hyperlipidemia, unspecified; J44.1 Chronic obstructive pulmonary disease with (acute) exacerbation; I71.4 Abdominal aortic aneurysm, without rupture; I50.33 Acute on chronic diastolic (congestive) heart failure; G12.21 Amyotrophic lateral sclerosis; I48.20 Chronic atrial fibrillation, unspecified; R09.02 Hypoxemia; J18.9 Pneumonia, unspecified organism; R79.89 Other specified abnormal findings of blood chemistry
CPT/HCPCS: 36415; 36600; 71020; 71046; 80048; 80053; 82803; 83519; 83880; 84484; 85025; 87040; 87070; 93005; 93306; 94640; 94660; 94664; 94760; 96365; 96375; 96376; 97110; 97116; 97161; 99285; G0378

== ENCOUNTER 2020-02-27 15:36 | Observation (INO) ==
[2020-02-27 16:21] LABS: Hematocrit 44.1 % (42.0-52.0); Hemoglobin 14.9 gm/dL (13.5-18.0); Mean Corpuscular Hemoglobin 29.7 pg (27-31); Mean Corpuscular Hgb Conc 33.8 g/dl (32-36); Mean Platelet Volume 8.8 fl (8-11.3); Neutrophil # 8.2 K/mm3 (1.3-6.0); Neutrophil % 70.5 % (42-75.0); Platelet Count 200 K/mm3 (150-450); Red Blood Count 5.01 M/mm3 (4.7-6.0); Red Cell Distribution Width 12.9 % (11.5-14.0); White Blood Count 11.6 K/mm3 (4.0-10.5)
[2020-02-27 16:39] LABS: ALT 16 U/L (19-67); AST 17 U/L (0-48); Albumin * 3.5 gm/dl (3.4-5.0); Alkaline Phosphatase * 78 U/L (50-170); Anion Gap 11.2 mmol/L (6.8-13.8); BNP * 3170 pg/mL (5-350); BUN/Creatinine Ratio 14.6 (9.0-21.6); Bilirubin, Total 0.5 mg/dL (0.0-1.1); Blood Urea Nitrogen 19 mg/dL (6-23); Ca. Corrected For Albumin 9.7 mg/dL (8.4-10.2); Calcium * 9.6 mg/dL (7.9-10.9); Carbon Dioxide 31.3 mmol/L (24-32.6); Chloride 103 mmol/L (97-106); Glucose * 159 mg/dL (70-110); Potassium 3.5 mmol/L (3.4-4.6); Sodium 142 mmol/L (132-142); Total Protein 7.5 gm/dL (6.2-8.2)
[2020-02-27 16:41] LABS: Troponin I Less than 0.017 ng/mL (0.00-0.10)
[2020-02-27] MEDS ORDERED: FUROSEMIDE 10 MG/ML VIAL IV ONE (17:49)
--- NOTE | 2020-02-27 18:04 | ERNOTE ---
Dyspnea - Date Date of Service: 02/27/20 - General Presenting Symptoms: shortness of breath, difficulty of breathing Time Seen by Provider: 02/27/20 15:58 Source: patient Exam Limitations: no limitations - Immun/Allergies/Home Medications Immunizations: IMMUNIZATION HX Immunizations Up to Date Yes History of Influenza Vaccine Yes Hx Pneumococcal Vaccination No Allergies/Adverse Reactions: Allergies ibuprofen Adverse Reaction (Unknown, Verified 11/09/19 09:19) thins blood too much [place] Adverse Reaction (Unknown, Uncoded 11/09/19 09:19) Home Medications: HOME MEDICATIONS spironolactone 25 mg tablet 50 mg PO DAILY tab 06/09/18 [Last Taken Unknown] metoprolol tartrate 50 mg tablet 25 mg PO BID tab 06/16/19 [Last Taken Unknown] simvastatin 40 mg tablet 20 mg PO HS tab 06/16/19 [Last Taken Unknown] minoxidil 10 mg tablet 10 mg PO DAILY 10/13/19 [Last Taken Unknown] Melatonin/Pyridoxine HCl (B6) [Melatonin 3 mg Tablet] 6 mg PO HS 11/09/19 [Last Taken Unknown] Tiotropium [place] [Spiriva] 18 mcg INHALATION DAILY PRN 11/09/19 [Last Taken Unknown] Sertraline HCl [Zoloft] 150 mg PO DAILY #45 tab 11/14/19 [Last Taken Unknown] furosemide 80 mg tablet 80 mg PO QID #120 tab 02/21/20 [Last Taken Unknown] Loratadine [Claritin] 10 mg PO DAILY 02/27/20 [Last Taken Unknown] Potassium Chloride 30 meq PO DAILY 02/27/20 [Last Taken Unknown] - History of Present Illness Narrative: radha with known hx of copd and chf, als was noted by home health to have increased dyspnea.brought to hospital by ems Severity: moderate Treatment LUBRICATING SPECIALIST: paramedics Initiating event: Reports: unknown Frequency of episodes: Reports: frequent episodes Modifying Factors - (Improves): Reports: nothing Modifying Factors (Worsens): Reports: activity Associated Symptoms-Dyspnea: Reports: ankle/leg swelling Prior Treatment: Reports: recently seen, treated by physician Review of Systems - Review of Systems Constitutional: Present: See HPI, weakness, fatigue, malaise EYE: Present: no symptoms reported ENT: Present: no symptoms reported Respiratory: Present: See HPI, shortness of breath, orthopnea, wheezing Cardiology: Present: no symptoms reported Gastrointestinal/Abdominal: Present: no symptoms reported Genitourinary: Present: no symptoms reported Musculoskeletal: Present: no symptoms reported Skin: Present: no symptoms reported Neurological: Present: no symptoms reported Endocrine: Present: no symptoms reported Hematologic/Lymphatic: Present: no symptoms reported Psych: Present: no symptoms reported Medical History (Last Reviewed 02/27/20 @ 15:48 by Sepideh Villatoro RN) ALS (amyotrophic lateral sclerosis) Atrial flutter COPD (chronic obstructive pulmonary disease) Congestive heart failure (CHF) Sleep apnea HLD (hyperlipidemia) HTN (hypertension) Surgical History: Surgical History (Last Reviewed 02/27/20 @ 15:48 by Sepideh Villatoro RN) Hx of prior ablation treatment Status post total hip replacement, right 02/12/2015 Status post total knee replacement, left 09/2004 History of sinus surgery Onset Date: ~1989 Hx of appendectomy Age 11 Hx of cholecystectomy Onset Date: ~1991 Laparoscopic Hx of tonsillectomy Family History: Family History (Last Reviewed 02/27/20 @ 15:48 by Sepideh Villatoro RN) Father Cancer 2007 Alive and well. 2001 had prostate Ca. Mother , Age 79 CVA (cerebral vascular accident) series of CVA Social History: (Last Reviewed 02/27/20 @ 15:48 by Sepideh Villatoro RN) Social History: Marital status: household members: spouse current occupational status: retired Tobacco: Smoking Status: Never smoker Tobacco: How many years used: 13 Alcohol: details: Rare Beer Physical Exam - Physical Exam General Appearance: Present: moderate distress, anxious Head Exam: Present: normal inspection, no evidence of injury Eye Exam: Normal inspection: bilateral, PERRL: bilateral, EOMI: bilateral Ears, Nose, Throat: Present: normal ENT inspection, normal pharynx Neck: Present: normal inspection, nontender Respiratory: Present: respiratory distress, crackles, rales, rhonchi Cardiovascular/Chest: Present: irregularly irregular Gastrointestinal/Abdominal: Present: normal bowel sounds, nontender, nondistended, soft, no organomegaly Back Exam: Present: normal inspection, normal range of motion, no CVA tenderness, no vertebral tenderness Extremity Exam: Present: normal inspection, non-tender, normal range of motion, no edema Neurological Exam: Present: alert, oriented, normal mood/affect, no motor/sensory deficits Skin Exam: Present: normal color, warm/dry Lymphatic Exam: Present: no adenopathy Progress - Date and Time Seen: Date and Time: 02/27/20 18:01 condition unchanged, discussed case with dr avila, to admit to observation - Results and Orders Patient's Lab Results:: I have reviewed the patient's lab results. - Vital Signs Patient's Vital Signs:: I have reviewed the patient's vital signs. Vital Signs: Vital Signs 02/27/20 15:43 02/27/20 15:47 Temperature 37.2 C Pulse Rate 112 H 88 Respiratory Rate 22 H Blood Pressure 119/63 O2 Sat by Pulse Oximetry 93 - EKG EKG #1 EKG: atrial fibrillation - X-Ray X-Ray #1 X-Ray: chest Interpretation: Interp. by me - pulmonary edema - Progress/Reassessment Chief Complaint: Dyspnea Progress:: Unchanged - Transfer of Care Expected Disposition: Admit Plan - Plan Plan: to admit to observation Departure Clinical Impression: Congestive heart failure, COPD exacerbation - Departure Disposition: Short Term Hospital Inpatient Condition: Serious Referrals: Gallito Preston MD [Primary Care Provider] -
[2020-02-27 18:18] LABS: Urine Bilirubin Negative (NEGATIVE); Urine Blood Negative /ul (NEGATIVE); Urine Ketone Negative (NEGATIVE); Urine Nitrite Negative (NEGATIVE); Urine Protein Negative (NEGATIVE); Urine Specific Gravity 1.015 SP.GR. (1.005-1.030); Urine Urobilinogen Normal (NORMAL)
[2020-02-27 18:45] LABS: Urine Appearance Clear (CLEAR); Urine Color Yellow
[2020-02-27 18:46] LABS: Urine Bacteria TRACE; Urine RBC None Seen /hpf (0-5); Urine WBC None Seen /hpf (0-5)
[2020-02-27] MEDS ORDERED: TIOTROPIUM BROMIDE 5 CAP INHALER IH PRN (21:16)
[2020-02-27] MEDS ORDERED: SIMVASTATIN 20 MG TABLET PO SCH (21:30)
[2020-02-27] MEDS: METOPROLOL TARTRATE 25 MG TABLET PO SCH (21:57)
--- NOTE | 2020-02-27 22:01 | HP ---
Chief Complaint - Chief Complaint Date of Service: 02/27/20 Time of Service: 22:01 Chief Complaint: Shortness of breath History of Present Illness: Nick is a 74 yo male with ALS, COPD, and chronic diastolic CHF. He reports no recent changes in medication, diet, or activity. He reports his ALC has been progressively worsening. Over the last 3 day he has been having more shortness of breath. No recent travel, he has remained at home. No exposure to COVID contacts. No increased swelling in lower extremities. He chronically uses 2lpm of oxygen at home. Medical History (Last Reviewed 02/27/20 @ 19:39 by Diane Bolaños RN) ALS (amyotrophic lateral sclerosis) Atrial flutter COPD (chronic obstructive pulmonary disease) Congestive heart failure (CHF) Sleep apnea HLD (hyperlipidemia) HTN (hypertension) Surgical History: Surgical History (Last Reviewed 02/27/20 @ 19:39 by Diane Bolaños RN) Hx of prior ablation treatment Status post total hip replacement, right 02/12/2015 Status post total knee replacement, left 09/2004 History of sinus surgery Onset Date: ~1989 Hx of appendectomy Age 11 Hx of cholecystectomy Onset Date: ~1991 Laparoscopic Hx of tonsillectomy Family History: Family History (Last Reviewed 02/27/20 @ 19:39 by Diane Bolaños RN) Father Cancer 2008 Alive and well. 2001 had prostate Ca. Mother , Age 79 CVA (cerebral vascular accident) series of CVA Social History: (Last Reviewed 02/27/20 @ 19:39 by Diane Bolaños RN) Social History: Marital status: household members: spouse current occupational status: retired Tobacco: Smoking Status: Never smoker Tobacco: How many years used: 13 Alcohol: details: Rare Beer Review Of Systems (GEN) - Review of Systems Generalized/Overall Review: Present: Weakness. Absent: Chills, Fever Respiratory: Present: Cough, Shortness of Breath Cardiac: Absent: Chest Pain, Edema, Palpitations Abdominal: Absent: Vomiting Genitourinary: Present: Urgency. Absent: Burning Musculoskeletal: Present: No Symptoms Reported Neurological: Present: No Symptoms Reported Skin: Present: No Symptoms Reported Immunizations: IMMUNIZATION HX Immunizations Up to Date Yes History of Influenza Vaccine Yes Hx Pneumococcal Vaccination No Allergies/Adverse Reactions: Allergies Allergy/AdvReac Type Severity Reaction Status Date / Time ibuprofen AdvReac Unknown thins Verified 11/09/19 09:19 blood too much [place] AdvReac Unknown Uncoded 11/09/19 09:19 Home Medications: HOME MEDICATIONS spironolactone 25 mg tablet 50 mg PO DAILY tab 06/09/18 [Last Taken Unknown] metoprolol tartrate 50 mg tablet 25 mg PO BID tab 06/16/19 [Last Taken Unknown] simvastatin 40 mg tablet 20 mg PO HS tab 06/16/19 [Last Taken Unknown] minoxidil 10 mg tablet 10 mg PO DAILY 10/13/19 [Last Taken Unknown] Melatonin/Pyridoxine HCl (B6) [Melatonin 3 mg Tablet] 6 mg PO HS 11/09/19 [Last Taken Unknown] Tiotropium [place] [Spiriva] 18 mcg INHALATION DAILY PRN 11/09/19 [Last Taken U nknown] Sertraline HCl [Zoloft] 150 mg PO DAILY #45 tab 11/14/19 [Last Taken Unknown] furosemide 80 mg tablet 80 mg PO QID #120 tab 02/21/20 [Last Taken Unknown] Loratadine [Claritin] 10 mg PO DAILY 02/27/20 [Last Taken Unknown] Potassium Chloride 30 meq PO DAILY 02/27/20 [Last Taken Unknown] Exam - Exam Vital Signs: Vital Signs - Last Taken Temp 36.8 C 02/27/20 21:44 Pulse 95 02/27/20 21:57 Resp 24 H 02/27/20 21:44 BP 133/79 02/27/20 21:57 Pulse Ox 100 02/27/20 21:44 Constitutional: Present: Alert, Oriented x3, Cooperative ENT Exam: Present: hearing grossly normal Eye Exam: bilateral eye: normal inspection Respiratory: Present: decreased breath sounds - bilateral bases Cardiovascular/Chest: Present: regular rate, rhythm, no murmur Abdomen: Present: Normal bowel sounds, soft, nontender, nondistended Skin Exam: Present: normal color, warm/dry, no cyanosis Neurologic: Present: alert, normal mood/affect, oriented x 3, other - speech is slowed Eye contact: Present: cooperative, good eye contact Diagnostic Studies: Abnormal Lab Results 02/27/20 02/27/20 02/27/20 Range/Units 16:14 16:14 16:40 WBC 11.6 H (4.0-10.5) K/mm3 Immature Gran % (Auto) 2.80 H (0.001-0.429) % Immature Gran # (Auto) 0.32 H (0.000-0.0310) K/mm3 Lymphocytes % 11.9 L (20-51) % Eosinophils % 6.4 H (0.0-3.0) % Neutrophils # 8.2 H (1.3-6.0) K/mm3 Lymphocytes # 1.38 L (1.5-3.5) k/mm3 pO2 76.2 L (83.0-108.0) mmHg Total CO2 29.0 H (19.0-24.0) mmol/L Base Excess 3.6 H (-2.0-3.0) mmol/L Plasma Sodium 143 H (130-142) mmol/L Est GFR (Non-Af Amer) 58 L (60-130) mL/min Random Glucose 159 H (70-110) mg/dL ALT 16 L (19-67) U/L B-Natriuretic Peptide 3170 H (5-350) pg/mL Laboratory Results WBC 11.6 K/mm3 (4.0-10.5) H 02/27/20 16:14 RBC 5.01 M/mm3 (4.7-6.0) 02/27/20 16:14 Hgb 14.9 gm/dL (13.5-18.0) 02/27/20 16:14 Hct 44.1 % (42.0-52.0) 02/27/20 16:14 MCV 88.0 fl (78-100) 02/27/20 16:14 MCH 29.7 pg (27-31) 02/27/20 16:14 MCHC 33.8 g/dl (32-36) 02/27/20 16:14 RDW 12.9 % (11.5-14.0) 02/27/20 16:14 Plt Count 200 K/mm3 (150-450) 02/27/20 16:14 MPV 8.8 fl (8-11.3) 02/27/20 16:14 Immature Gran % (Auto) 2.80 % (0.001-0.429) H 02/27/20 16:14 Immature Gran # (Auto) 0.32 K/mm3 (0.000-0.0310) H 02/27/20 16:14 Neutrophils % 70.5 % (42-75.0) 02/27/20 16:14 Lymphocytes % 11.9 % (20-51) L 02/27/20 16:14 Monocytes % 7.6 % (0.0-9) 02/27/20 16:14 Eosinophils % 6.4 % (0.0-3.0) H 02/27/20 16:14 Basophils % 0.8 % (0.0-1.0) 02/27/20 16:14 Nucleated RBC % 0.0 k/mm3 (0-1) 02/27/20 16:14 Neutrophils # 8.2 K/mm3 (1.3-6.0) H 02/27/20 16:14 Lymphocytes # 1.38 k/mm3 (1.5-3.5) L 02/27/20 16:14 Monocytes # 0.9 k/mm3 (0.0-1.0) 02/27/20 16:14 Eosinophils # 0.7 k/mm3 (0.0-0.7) 02/27/20 16:14 Absolute Basophils 0.1 k/mm3 (0.0-0.1) 02/27/20 16:14 pCO2 40.7 mmHg (35.0-48.0) 02/27/20 16:40 pO2 76.2 mmHg (83.0-108.0) L 02/27/20 16:40 HCO3 27.8 mmol/L (21.0-28.0) 02/27/20 16:40 Total CO2 29.0 mmol/L (19.0-24.0) H 02/27/20 16:40 Base Excess 3.6 mmol/L (-2.0-3.0) H 02/27/20 16:40 ABG pH 7.45 (7.35-7.45) 02/27/20 16:40 ABG O2 Sat (Measured) 95.8 % (94.0-98.0) 02/27/20 16:40 Sodium 142 mmol/L (132-142) 02/27/20 16:14 Plasma Sodium 143 mmol/L (130-142) H 02/27/20 16:14 Potassium 3.5 mmol/L (3.4-4.6) 02/27/20 16:14 Chloride 103 mmol/L (97-106) 02/27/20 16:14 Carbon Dioxide 31.3 mmol/L (24-32.6) 02/27/20 16:14 Anion Gap 11.2 mmol/L (6.8-13.8) 02/27/20 16:14 BUN 19 mg/dL (6-23) 02/27/20 16:14 Creatinine 1.30 mg/dL (0.4-1.4) 02/27/20 16:14 Est GFR (Non-Af Amer) 58 mL/min (60-130) L 02/27/20 16:14 BUN/Creatinine Ratio 14.6 (9.0-21.6) 02/27/20 16:14 Random Glucose 159 mg/dL (70-110) H 02/27/20 16:14 Calcium 9.6 mg/dL (7.9-10.9) 02/27/20 16:14 Calcium Adj for Albumin 9.7 mg/dL (8.4-10.2) 02/27/20 16:14 Total Bilirubin 0.5 mg/dL (0.0-1.1) 02/27/20 16:14 AST 17 U/L (0-48) 02/27/20 16:14 ALT 16 U/L (19-67) L 02/27/20 16:14 Alkaline Phosphatase 78 U/L (50-170) 02/27/20 16:14 Troponin I Less than 0.017 ng/mL (0.00-0.10) 02/27/20 16:14 B-Natriuretic Peptide 3170 pg/mL (5-350) H 02/27/20 16:14 Total Protein 7.5 gm/dL (6.2-8.2) 02/27/20 16:14 Albumin 3.5 gm/dl (3.4-5.0) 02/27/20 16:14 Urine Color Yellow 02/27/20 18:14 Urine Appearance Clear (CLEAR) 02/27/20 18:14 Urine pH 7.0 pH (5.0-7.0) 02/27/20 18:14 Ur Specific [place] 1.015 SP.GR. (1.005-1.030) 02/27/20 18:14 Urine Protein Negative mg/dL (NEGATIVE) 02/27/20 18:14 Urine Glucose (UA) Negative mg/dL (NEGATIVE) 02/27/20 18:14 Urine Ketones Negative mg/dL (NEGATIVE) 02/27/20 18:14 Urine Blood Negative /ul (NEGATIVE) 02/27/20 18:14 Urine Nitrate Negative (NEGATIVE) 02/27/20 18:14 Urine Bilirubin Negative mg/dl (NEGATIVE) 02/27/20 18:14 Urine Urobilinogen Normal EU/dl (NORMAL) 02/27/20 18:14 Ur Leukocyte Esterase Negative /ul (NEGATIVE) 02/27/20 18:14 Urine RBC None seen /hpf (0-5) 02/27/20 18:14 Urine WBC None seen /hpf (0-5) 02/27/20 18:14 Ur Epithelial Cells 0-5 /hpf (0-5) 02/27/20 18:14 Urine Bacteria Trace (NONE) 02/27/20 18:14 Urine Culture Comments No culture indicated 02/27/20 18:14 Chlamy pneumoniae PCR Not detected (NotDetected) 02/27/20 17:20 Adenovirus (PCR) Not detected (NotDetected) 02/27/20 17:20 B. pertussis DNA (PCR) Not detected (NotDetected) 02/27/20 17:20 Coronavirus OC43 (PCR) Not detected (NotDetected) 02/27/20 17:20 Coronavirus HKU1 (PCR) Not detected (NotDetected) 02/27/20 17:20 Coronavirus 229E (PCR) Not detected (NotDetected) 02/27/20 17:20 Coronavirus NL63 (PCR) Not detected (NotDetected) 02/27/20 17:20 Human Metapneumovir PCR Not detected (NotDetected) 02/27/20 17:20 Influenza A (H1) PCR Not detected (NotDetected) 02/27/20 17:20 Influenza A (H1N1) PCR Not detected (NotDetected) 02/27/20 17:20 Influenza A (H3) PCR Not detected (NotDetected) 02/27/20 17:20 Influenza B (RT-PCR) Not detected (NotDetected) 02/27/20 17:20 M. pneumoniae (PCR) Not detected (NotDetected) 02/27/20 17:20 Parainfluenza 1 (PCR) Not detected (NotDetected) 02/27/20 17:20 Parainfluenza 2 (PCR) Not detected (NotDetected) 02/27/20 17:20 Parainfluenza 3 (PCR) Not detected (NotDetected) 02/27/20 17:20 Parainfluenza 4 (PCR) Not detected (NotDetected) 02/27/20 17:20 RSV (PCR) Not detected (NotDetected) 02/27/20 17:20 Rhinovirus (PCR) Not detected (NotDetected) 02/27/20 17:20 Assessment/Plan - Narrative Narrative: Nick has shortness of breath worse than his baseline secondary to acute on chronic diastolic CHF. Will give Lasix IV 80mg and reaccess. He will be continued on his home oxygen, he does not have higher needs than his usual baseline. Continue home medications. He will be admitted to observation at this time. Plan to discharge to home tomorrow after he is diuresed excess fluids. - Assessment/Plan (1) Acute on chronic diastolic (congestive) heart failure Problem: Acute (2) Chronic respiratory failure with hypoxia Problem: Acute (3) COPD (chronic obstructive pulmonary disease) Problem: Acute (4) ALS (amyotrophic lateral sclerosis) Problem: Chronic
[2020-02-28] MEDS: METOPROLOL TARTRATE 25 MG TABLET PO SCH ×2 (06:50→08:59)
[2020-02-28] MEDS ORDERED: FUROSEMIDE 10 MG/ML VIAL IV ONE (07:59)
[2020-02-28] MEDS ORDERED: SPIRONOLACTONE 25 MG TABLET PO SCH (09:00)
[2020-02-28] MEDS ORDERED: SERTRALINE HCL 50 MG TABLET PO SCH (09:00)
[2020-02-28] MEDS ORDERED: LORATADINE 10 MG TABLET PO SCH (09:00)
[2020-02-28] MEDS ORDERED: POTASSIUM CHLORIDE 10 MEQ TABLET.SA PO SCH (09:00)
[2020-02-28] MEDS ORDERED: MINOXIDIL 2.5 MG TABLET PO SCH (09:00)
--- NOTE | 2020-02-28 13:06 | DS ---
Date of Discharge:: 02/28/20 Hospital Course: Nick was admitted for acute on chronic diastolic CHF exacerbation. He was given Lasix 80mg IV in the ER and then once more on the floor and had good diuresis. He is chronically on oxygen at 2lpm and he maintained oxygen saturation at 90% or above during hospital course. He had a chest xray that showed small pleural effusions. Due to admission with shortness of breath he was tested for COVID 19 which is pending at this time. He was placed in appropriate precautions. His test is still pending at the time, although I believe it will be negative since his symptoms were likely related to fluid and improved with diuresis. He feels back at his baseline. He has home health set up at home. He will continue all current services. I will not change any medications at this time. He understands hospice is in his future due to his ALS, but he will call when he is ready to start hospice. Procedures Performed: none Results and Findings: Lab Pending Results 02/27/20 16:14: WBC 11.6 H, RBC 5.01, Hgb 14.9, Hct 44.1, MCV 88.0, MCH 29.7, MCHC 33.8, RDW 12.9, Plt Count 200, MPV 8.8, Immature Gran % (Auto) 2.80 H, Immature Gran # (Auto) 0.32 H, Neutrophils % 70.5, Lymphocytes % 11.9 L, Monocytes % 7.6, Eosinophils % 6.4 H, Basophils % 0.8, Nucleated RBC % 0.0, Neutrophils # 8.2 H, Lymphocytes # 1.38 L, Monocytes # 0.9, Eosinophils # 0.7, Absolute Basophils 0.1 02/27/20 16:14: Sodium 142, Plasma Sodium 143 H, Potassium 3.5, Chloride 103, Carbon Dioxide 31.3, Anion Gap 11.2, BUN 19, Creatinine 1.30, Est GFR (Non-Af Amer) 58 L, BUN/Creatinine Ratio 14.6, Random Glucose 159 H, Calcium 9.6, Calcium Adj for Albumin 9.7, Total Bilirubin 0.5, AST 17, ALT 16 L, Alkaline Phosphatase 78, Troponin I Less than 0.017, B-Natriuretic Peptide 3170 H, Total Protein 7.5, Albumin 3.5 02/27/20 16:40: pCO2 40.7, pO2 76.2 L, HCO3 27.8, Total CO2 29.0 H, Base Excess 3.6 H, ABG pH 7.45, ABG O2 Sat (Measured) 95.8 02/27/20 17:20: Chlamy pneumoniae PCR Not detected, Adenovirus (PCR) Not detected, B. pertussis DNA (PCR) Not detected, Coronavirus OC43 (PCR) Not detected, Coronavirus HKU1 (PCR) Not detected, Coronavirus 229E (PCR) Not detected, Coronavirus NL63 (PCR) Not detected, Human Metapneumovir PCR Not detected, Influenza A (H1) PCR Not detected, Influenza A (H1N1) PCR Not detected, Influenza A (H3) PCR Not detected, Influenza B (RT-PCR) Not detected, M. pneumoniae (PCR) Not detected, Parainfluenza 1 (PCR) Not detected, Parainfluenza 2 (PCR) Not detected, Parainfluenza 3 (PCR) Not detected, Parainfluenza 4 (PCR) Not detected, RSV (PCR) Not detected, Rhinovirus (PCR) Not detected 02/27/20 18:14: Urine Color Yellow, Urine Appearance Clear, Urine pH 7.0, Ur Specific [place] 1.015, Urine Protein Negative, Urine Glucose (UA) Negative, Urine Ketones Negative, Urine Blood Negative, Urine Nitrate Negative, Urine Bilirubin Negative, Urine Urobilinogen Normal, Ur Leukocyte Esterase Negative, Urine RBC None seen, Urine WBC None seen, Ur Epithelial Cells 0-5, Urine Bacteria Trace, Urine Culture Comments No culture indicated Discharge Location: Home Disposition: Home Health Service Condition: Stable Discharge Activity: Activity as tolerated Discharge Diet: Low salt Referrals: Gallito Preston MD [Primary Care Provider] - (May set up phone or video visit in 1-2 weeks) Problem Oriented Discharge Instructions to Patient/Family: CHF Patient Instructions Additional Patient Instructions (free text): Resume services with [facility] out of [place]. Please call report and fax orders upon discharge. Complete Home Medications List: Complete Home Medication List: spironolactone 25 mg tablet 50 mg PO DAILY tab 06/09/18 metoprolol tartrate 50 mg tablet 25 mg PO BID tab 06/16/19 simvastatin 40 mg tablet 20 mg PO HS tab 06/16/19 minoxidil 10 mg tablet 10 mg PO DAILY 12/12/19 Melatonin/Pyridoxine HCl (B6) [Melatonin 3 mg Tablet] 6 mg PO HS 11/09/19 Tiotropium [place] [Spiriva] 18 mcg INHALATION DAILY PRN 11/09/19 Sertraline HCl [Zoloft] 150 mg PO DAILY #45 tab 11/14/19 furosemide 80 mg tablet 80 mg PO QID #120 tab 02/21/20 Loratadine [Claritin] 10 mg PO DAILY 02/27/20 Potassium Chloride 30 meq PO DAILY 02/27/20
[2020-02-28 16:09] VITALS: BP 149/71
[2020-02-28] MEDS ORDERED: PYRIDOXINE HCL PO SCH (21:00)
[2020-02-28] MEDS ORDERED: MELATONIN PO SCH (21:00)
== END 2020-02-28 15:45 | disposition home health service (06) ==
LOC: MS 15:36 → ER 15:36 → MS 18:46
PROVIDERS: ADMIT Family Medicine; ATTEND Family Medicine
DX: I11.0 Hypertensive heart disease with heart failure; J96.21 Acute and chronic respiratory failure with hypoxia; I50.33 Acute on chronic diastolic (congestive) heart failure; J44.9 Chronic obstructive pulmonary disease, unspecified; G12.21 Amyotrophic lateral sclerosis; I48.91 Unspecified atrial fibrillation; Z99.81 Dependence on supplemental oxygen; E78.5 Hyperlipidemia, unspecified
CPT/HCPCS: 36415; 36600; 71010; 71045; 80053; 81001; 82803; 83519; 83880; 84484; 85025; 87040; 87633; 93005; 94660; 94760; 96374; 96375; 99284; 99285; G0378

== ENCOUNTER 2020-05-01 21:02 | Observation (INO) ==
--- NOTE | 2020-05-01 21:13 | ERNOTE ---
Dyspnea - General Presenting Symptoms: shortness of breath Time Seen by Provider: 05/01/20 21:05 Source: family, EMS Exam Limitations: other - Immun/Allergies/Home Medications Immunizations: IMMUNIZATION HX Immunizations Up to Date Yes History of Influenza Vaccine Yes Hx Pneumococcal Vaccination No Allergies/Adverse Reactions: Allergies ibuprofen Adverse Reaction (Unknown, Verified 11/09/19 09:19) thins blood too much Chiggers Adverse Reaction (Unknown, Uncoded 11/09/19 09:19) Home Medications: HOME MEDICATIONS spironolactone 25 mg tablet 50 mg PO DAILY tab 06/09/18 [Last Taken Unknown] metoprolol tartrate 50 mg tablet 25 mg PO BID tab 06/16/19 [Last Taken Unknown] simvastatin 40 mg tablet 20 mg PO HS tab 06/16/19 [Last Taken Unknown] minoxidil 10 mg tablet 10 mg PO DAILY 10/13/19 [Last Taken Unknown] Melatonin/Pyridoxine HCl (B6) [Melatonin 3 mg Tablet] 6 mg PO HS 11/09/19 [Last Taken Unknown] Tiotropium [place] [Spiriva] 18 mcg INHALATION DAILY PRN 11/09/19 [Last Taken Unknown] Sertraline HCl [Zoloft] 150 mg PO DAILY #45 tab 11/14/19 [Last Taken Unknown] Loratadine [Claritin] 10 mg PO DAILY 02/27/20 [Last Taken Unknown] Potassium Chloride 30 meq PO DAILY 02/27/20 [Last Taken Unknown] Furosemide [Lasix] 80 mg PO BID 05/01/20 [Last Taken Unknown] - History of Present Illness Narrative: Patient presents per EMS with shortness of breath. Patient's called prior to their arrival and states patient has been more short of breath today. Upon arrival EMS states that his concentrator was not working at home and that oxygen saturations were in the lower 80s. They placed him on 3 L per nasal cannula which is his usual at home. Upon arrival he is 95% saturation. Severity: moderate Treatment HAND CANDY DIPPER: paramedics Frequency of episodes: Reports: occassional episodes Modifying Factors - (Improves): Reports: oxygen Modifying Factors (Worsens): Reports: activity Review of Systems - Narrative Narrative: Having difficulty getting ROS of the patient. arrived later ROS taken from - Review of Systems Constitutional: Absent: recent illness Respiratory: Present: shortness of breath - Chronic although somewhat worsened over the last couple of days Cardiology: Present: edema - Decreased in his feet bilaterally over the past 2 to 3 days.. Absent: chest pain Gastrointestinal/Abdominal: Absent: diarrhea Endocrine: Absent: excessive sweating Medical History (Last Reviewed 05/01/20 @ 21:12 by Terrell Cruz DO) ALS (amyotrophic lateral sclerosis) Atrial flutter COPD (chronic obstructive pulmonary disease) Congestive heart failure (CHF) Sleep apnea HLD (hyperlipidemia) HTN (hypertension) Surgical History: Surgical History (Last Reviewed 05/01/20 @ 21:12 by Terrell Cruz DO) Hx of prior ablation treatment Status post total hip replacement, right 02/12/2015 Status post total knee replacement, left 09/2004 History of sinus surgery Onset Date: ~1989 Hx of appendectomy Age 11 Hx of cholecystectomy Onset Date: ~1991 Laparoscopic Hx of tonsillectomy Family History: Family History (Last Reviewed 05/01/20 @ 21:12 by Terrell Cruz DO) Father Cancer 2008 Alive and well. 2001 had prostate Ca. Mother , Age 79 CVA (cerebral vascular accident) series of CVA Social History: (Last Reviewed 05/01/20 @ 21:12 by Terrell Cruz DO) Social History: Marital status: household members: spouse current occupational status: retired Tobacco: Smoking Status: Never smoker Tobacco: How many years used: 13 Alcohol: details: Rare Beer Physical Exam - Physical Exam General Appearance: Present: wd/wn, alert, no apparent distress Head Exam: Present: normal inspection, no evidence of injury Neck: Present: normal inspection, nontender Respiratory: Present: no respiratory distress, no accessory muscle use, chest nontender, lungs clear Cardiovascular/Chest: Present: regular rate, rhythm, no murmur Gastrointestinal/Abdominal: Present: normal bowel sounds, nontender, nondistended, soft Back Exam: Present: normal inspection, normal range of motion Extremity Exam: Present: normal inspection, normal range of motion, no edema Neurological Exam: Present: alert, oriented, normal mood/affect, no motor/sensory deficits Skin Exam: Present: normal color, warm/dry Lymphatic Exam: Present: no adenopathy Progress - Results and Orders Patient's Lab Results:: I have reviewed the patient's lab results. Results and Orders: Laboratory Tests 06/30/20 06/30/20 06/30/20 21:53 21:53 21:53 WBC 12.2 H Hgb 14.9 Hct 44.8 Plt Count 185 D-Dimer 0.58 H Sodium 142 Potassium 3.4 Chloride 102 Carbon Dioxide 34.4 H BUN 18 Creatinine 1.42 H Est GFR (Non-Af Amer) 52 L Random Glucose 190 H Lactic Acid, Venous Calcium 10.0 Total Bilirubin 0.4 AST 20 ALT 31 Alkaline Phosphatase 72 Troponin I 0.018 B-Natriuretic Peptide 2927 H 05/01/20 21:53 WBC Hgb Hct Plt Count D-Dimer Sodium Potassium Chloride Carbon Dioxide BUN Creatinine Est GFR (Non-Af Amer) Random Glucose Lactic Acid, Venous 1.8 Calcium Total Bilirubin AST ALT Alkaline Phosphatase Troponin I B-Natriuretic Peptide - Vital Signs Patient's Vital Signs:: I have reviewed the patient's vital signs. - EKG EKG #1 EKG: supraventricular tachycardia, RBBB EKG read: Interp. by me - X-Ray X-Ray #1 X-Ray: chest Interpretation: Interp. by me X-ray Comments: Scarring bilateral bases, previously seen. No infiltrate or effusion. No pneumothorax. - Progress/Reassessment Progress Note-Subjective: 05/01/20 23:12 D-dimer positive will order CTA. 05/01/20 23:12 Patient returns from radiology. Patient refused CTA and staff was unable to convince him otherwise. 05/01/20 23:[address] Hendrickson he agrees to observation admit for IV diuresis. Spoke with the patient and his and they agree with admission. 05/02/20 00:43 Patient requested something for anxiety. Hydroxyzine 25 mg p.o. was given. Departure Clinical Impression: CHF (congestive heart failure) Qualifiers: Heart failure type: right-sided Heart failure chronicity: acute on chronic Qualified Code(s): I50.813 - Acute on chronic right heart failure - Departure Disposition: Still a patient Condition: Good
[2020-05-01 21:59] LABS: Hematocrit 44.8 % (42.0-52.0); Hemoglobin 14.9 gm/dL (13.5-18.0); Mean Cell Volume 90.9 fl (78-100); Mean Corpuscular Hemoglobin 30.2 pg (27-31); Mean Corpuscular Hgb Conc 33.3 g/dl (32-36); Mean Platelet Volume 9.1 fl (8-11.3); Neutrophil # 9.1 K/mm3 (1.3-6.0); Platelet Count 185 K/mm3 (150-450); Red Blood Count 4.93 M/mm3 (4.7-6.0); Red Cell Distribution Width 12.8 % (11.5-14.0); White Blood Count 12.2 K/mm3 (4.0-10.5)
[2020-05-01 22:18] LABS: Albumin * 3.8 gm/dl (3.4-5.0); BUN/Creatinine Ratio 12.7 (9.0-21.6); Bilirubin, Total 0.4 mg/dL (0.0-1.1); Ca. Corrected For Albumin 9.8 mg/dL (8.4-10.2); Carbon Dioxide 34.4 mmol/L (24-32.6); Potassium 3.4 mmol/L (3.4-4.6); Total Protein 7.5 gm/dL (6.2-8.2)
[2020-05-01 22:20] LABS: Troponin I 0.018 ng/mL (0.00-0.10)
[2020-05-01] MEDS ORDERED: FUROSEMIDE 10 MG/ML VIAL IV ONE (23:06)
[2020-05-02] MEDS ORDERED: hydrOXYzine PAMOATE 25 MG CAPSULE PO ONE (00:37)
--- NOTE | 2020-05-02 08:30 | HP ---
Chief Complaint - Chief Complaint Date of Service: 05/02/20 Time of Service: 08:24 Chief Complaint: Shortness of breath, elevated blood pressure and heart rate History of Present Illness: Nick Stoll is a 74-year-old white male with past medical history of COPD, obstructive sleep apnea, essential hypertension, paroxysmal atrial fibrillation, peripheral arterial disease, who was admitted on 05/01/2020 for shortness of breath, elevated blood pressure and heart rate. 3 to 4 days prior to admission the patient started feeling short of breath associated with trace swelling of his legs. This was associated with orthopnea. He denied any chest pains, denied any fever or chills, admits to occasional coughing. Yesterday the patient got tachycardic (140's) and his blood pressure ( 190's) went up associated with more shortness of breath so much so that his oxygen which he wears in the daytime at 3 L nasal cannula did not help. The EMS found his oxygen saturation only at 83%. As per emergency room notes the told them that the oxygen concentrator was also not working. His chest x-ray showed borderline cardiomegaly with mild pulmonary congestion, bibasilar atelectasis versus airspace disease. His white blood cell count was 12.2. His twelve-lead EKG showed sinus tachycardia of 106, right bundle branch block, possible left atrial enlargement, marked left axis deviation. His troponin was normal but his BNP was elevated at 2900+. He was admitted for congestive heart failure and diuresed. Medical History (Last Reviewed 05/02/20 @ 01:31 by Roma Pope RN) ALS (amyotrophic lateral sclerosis) Atrial flutter COPD (chronic obstructive pulmonary disease) Congestive heart failure (CHF) Sleep apnea HLD (hyperlipidemia) HTN (hypertension) Surgical History: Surgical History (Last Reviewed 05/02/20 @ 01:31 by Roma Pope RN) Hx of prior ablation treatment Status post total hip replacement, right 02/12/2015 Status post total knee replacement, left 09/2004 History of sinus surgery Onset Date: ~1989 Hx of appendectomy Age 11 Hx of cholecystectomy Onset Date: ~1991 Laparoscopic Hx of tonsillectomy Family History: Family History (Last Reviewed 05/02/20 @ 01:31 by Roma Pope RN) Father Cancer 2007 Alive and well. 2001 had prostate Ca. Mother , Age 79 CVA (cerebral vascular accident) series of CVA Social History: (Last Reviewed 05/02/20 @ 01:31 by Roma Pope RN) Social History: Marital status: household members: spouse current occupational status: retired Tobacco: Smoking Status: Never smoker Tobacco: How many years used: 13 Alcohol: details: Rare Beer Review Of Systems (GEN) - Review of Systems Generalized/Overall Review: Absent: Chills, Fever EENTM: Absent: Blurred Vision Respiratory: Present: Cough, Shortness of Breath, Orthopnea. Absent: Wheezing Cardiac: Present: Edema, Palpitations - Resolved. Absent: Chest Pain Abdominal: Absent: Nausea, Vomiting, Abdominal Pain, Diarrhea Genitourinary: Absent: Urgency, Frequency Musculoskeletal: Present: Joint Pain Neurological: Absent: Headache, Anxiety, Depressed Skin: Absent: Lesions, Rash Endocrine: Absent: Intolerance to Cold, Intolerance to Heat Immunizations: IMMUNIZATION HX Immunizations Up to Date Yes History of Influenza Vaccine Yes Hx Pneumococcal Vaccination No Allergies/Adverse Reactions: Allergies Allergy/AdvReac Type Severity Reaction Status Date / Time ibuprofen AdvReac Unknown thins Verified 11/09/19 09:19 blood too much Chiggers AdvReac Unknown Uncoded 11/09/19 09:19 Home Medications: HOME MEDICATIONS spironolactone 25 mg tablet 25 mg PO BID tab 06/09/18 [Last Taken 05/01/20 11:00] metoprolol tartrate 50 mg tablet 25 mg PO BID tab 06/16/19 [Last Taken 05/01/20 11:00] minoxidil 10 mg tablet 10 mg PO DAILY 10/13/19 [Last Taken 05/01/20 11:00] Melatonin/Pyridoxine HCl (B6) [Melatonin 3 mg Tablet] 6 mg PO HS 11/09/19 [Last Taken 04/30/20 21:00] Tiotropium [place] [Spiriva] 18 mcg INHALATION DAILY PRN 11/09/19 [Last Taken 05/01/20 11:00] Sertraline HCl [Zoloft] 150 mg PO DAILY #45 tab 11/14/19 [Last Taken 04/30/20 21:00] Loratadine [Claritin] 10 mg PO DAILY 02/27/20 [Last Taken 05/01/20 10:00] Potassium Chloride 10 meq PO TID 02/27/20 [Last Taken Unknown] Furosemide [Lasix] 80 mg PO QID 05/01/20 [Last Taken 05/01/20 23:00] Fluticasone Propionate [Flonase] 2 spray NS 05/02/20 [Last Taken 04/30/20 21:00] Sennosides/Docusate Sodium [Stool Softener-Laxative Tablet] 1 ea PO 05/02/20 [Last Taken 04/30/20] Simvastatin [Zocor] 20 mg PO 05/02/20 [Last Taken 04/30/20 21:00] Soft Lens Rinse,Store Solution [Saline Sensitive Eyes] 1 ml EACHEYE PRN PRN 05/02/20 [Last Taken Unknown] Exam - Exam Vital Signs: Vital Signs - Last Taken Temp 36.6 C 05/02/20 06:26 Pulse 89 05/02/20 06:26 Resp 20 05/02/20 06:26 BP 151/83 H 05/02/20 06:26 Pulse Ox 100 05/02/20 06:26 Constitutional: Present: Alert, Oriented x3, Cooperative, Morbidly obese ENT Exam: Present: hearing grossly normal Eye Exam: bilateral eye: normal inspection, PERRL, EOMI Neck: Present: supple Respiratory: Present: decreased breath sounds. Absent: crackles, rales, wheezing Cardiovascular/Chest: Present: regular rate, rhythm, no JVD, no murmur Abdomen: Present: Normal bowel sounds, soft, nontender, nondistended, obese Extremity: Present: no calf tenderness, lower extremity edema Diagnostic Studies: Abnormal Lab Results 05/01/20 05/01/20 05/01/20 Range/Units 21:53 21:53 21:53 WBC 12.2 H (4.0-10.5) K/mm3 Immature Gran % (Auto) 1.90 H (0.001-0.429) % Immature Gran # (Auto) 0.23 H (0.000-0.0310) K/mm3 Lymphocytes % 13.6 L (20-51) % Neutrophils # 9.1 H (1.3-6.0) K/mm3 D-Dimer 0.58 H (0.19-0.49) ug/mL Plasma Sodium 143 H (130-142) mmol/L Carbon Dioxide 34.4 H (24-32.6) mmol/L Creatinine 1.42 H (0.4-1.4) mg/dL Est GFR (Non-Af Amer) 52 L (60-130) mL/min Random Glucose 190 H (70-110) mg/dL B-Natriuretic Peptide 2927 H (5-350) pg/mL Laboratory Results WBC 12.2 K/mm3 (4.0-10.5) H 05/01/20 21:53 RBC 4.93 M/mm3 (4.7-6.0) 05/01/20 21:53 Hgb 14.9 gm/dL (13.5-18.0) 05/01/20 21:53 Hct 44.8 % (42.0-52.0) 05/01/20 21:53 MCV 90.9 fl (78-100) 05/01/20 21:53 MCH 30.2 pg (27-31) 05/01/20 21:53 MCHC 33.3 g/dl (32-36) 05/01/20 21:53 RDW 12.8 % (11.5-14.0) 05/01/20 21:53 Plt Count 185 K/mm3 (150-450) 05/01/20 21:53 MPV 9.1 fl (8-11.3) 05/01/20 21:53 Immature Gran % (Auto) 1.90 % (0.001-0.429) H 05/01/20 21:53 Immature Gran # (Auto) 0.23 K/mm3 (0.000-0.0310) H 05/01/20 21:53 Neutrophils % 74.0 % (42-75.0) 05/01/20 21:53 Lymphocytes % 13.6 % (20-51) L 05/01/20 21:53 Monocytes % 6.8 % (0.0-9) 05/01/20 21:53 Eosinophils % 3.0 % (0.0-3.0) 05/01/20 21:53 Basophils % 0.7 % (0.0-1.0) 05/01/20 21:53 Nucleated RBC % 0.0 k/mm3 (0-1) 05/01/20 21:53 Neutrophils # 9.1 K/mm3 (1.3-6.0) H 05/01/20 21:53 Lymphocytes # 1.66 k/mm3 (1.5-3.5) 05/01/20 21:53 Monocytes # 0.8 k/mm3 (0.0-1.0) 05/01/20 21:53 Eosinophils # 0.4 k/mm3 (0.0-0.7) 05/01/20 21:53 Absolute Basophils 0.1 k/mm3 (0.0-0.1) 05/01/20 21:53 D-Dimer 0.58 ug/mL (0.19-0.49) H 05/01/20 21:53 Sodium 142 mmol/L (132-142) 05/01/20 21:53 Plasma Sodium 143 mmol/L (130-142) H 05/01/20 21:53 Potassium 3.4 mmol/L (3.4-4.6) 05/01/20 21:53 Chloride 102 mmol/L (97-106) 05/01/20 21:53 Carbon Dioxide 34.4 mmol/L (24-32.6) H 05/01/20 21:53 Anion Gap 9.0 mmol/L (6.8-13.8) 05/01/20 21:53 BUN 18 mg/dL (6-23) 05/01/20 21:53 Creatinine 1.42 mg/dL (0.4-1.4) H 05/01/20 21:53 Est GFR (Non-Af Amer) 52 mL/min (60-130) L 05/01/20 21:53 BUN/Creatinine Ratio 12.7 (9.0-21.6) 05/01/20 21:53 Random Glucose 190 mg/dL (70-110) H 05/01/20 21:53 Lactic Acid, Venous 1.8 mmol/L (0.4-2.0) 05/01/20 21:53 Calcium 10.0 mg/dL (7.9-10.9) 05/01/20 21:53 Calcium Adj for Albumin 9.8 mg/dL (8.4-10.2) 05/01/20 21:53 Total Bilirubin 0.4 mg/dL (0.0-1.1) 05/01/20 21:53 AST 20 U/L (0-48) 05/01/20 21:53 ALT 31 U/L (19-67) 05/01/20 21:53 Alkaline Phosphatase 72 U/L (50-170) 05/01/20 21:53 Troponin I 0.018 ng/mL (0.00-0.10) 05/01/20 21:53 B-Natriuretic Peptide 2927 pg/mL (5-350) H 05/01/20 21:53 Total Protein 7.5 gm/dL (6.2-8.2) 05/01/20 21:53 Albumin 3.8 gm/dl (3.4-5.0) 05/01/20 21:53 Assessment/Plan - Narrative Narrative: Nick Draper was admitted for elevated blood pressure, elevated heart rate associated with shortness of breath. His history suggests patient could have had an episode of brief paroxysmal atrial fibrillation associated with elevated blood pressure which could have pushed him into acute exacerbation of his chronic diastolic congestive heart failure. His chest x-ray showing borderline cardiomegaly and mild pulmonary congestion and elevated BNP supports this however there is also mention of bilateral atelectasis versus airspace disease and his WBC is elevated at 12.2. He denies however coughing more than his usual, fever or chills. We will give him another Lasix today and have the company of his oxygen concentrator fix it at home. We will repeat CBC and BMP today. He is still on CPAP with nasal pillows and is still visibly short of breath. Will give another IV lasix of 80 mg. Further discharge plans pending clinical progress today. - Assessment/Plan (1) SOB (shortness of breath) Problem: Acute (2) Elevated brain natriuretic peptide (BNP) level Problem: Acute (3) Acute on chronic diastolic (congestive) heart failure Problem: Acute (4) Hypoxia Problem: Acute (5) HTN (hypertension) Problem: Chronic Qualifiers: (6) ALS (amyotrophic lateral sclerosis) Problem: Chronic (7) Leukocytosis Assessment: reactive vs infection Problem: Acute
[2020-05-02] MEDS ORDERED: FUROSEMIDE 10 MG/ML VIAL IV ONE (09:05)
[2020-05-02] MEDS ORDERED: POTASSIUM CHLORIDE 20 MEQ TABLET.SA PO ONE (09:06)
[2020-05-02] MEDS ORDERED: TIOTROPIUM BROMIDE 5 CAP INHALER IH PRN (09:07)
[2020-05-02] MEDS ORDERED: [UNRECOGNIZED DRUG - OTHER] EACHEYE PRN (09:07)
[2020-05-02] MEDS ORDERED: METOPROLOL TARTRATE 50 MG TABLET PO SCH (09:15)
[2020-05-02] MEDS: SERTRALINE HCL 50 MG TABLET PO SCH (10:15)
[2020-05-02] MEDS: LORATADINE 10 MG TABLET PO SCH (10:15)
[2020-05-02] MEDS: METOPROLOL TARTRATE 25 MG TABLET PO SCH ×2 (10:15→20:10)
[2020-05-02] MEDS: SPIRONOLACTONE 25 MG TABLET PO SCH ×2 (10:16→20:09)
[2020-05-02] MEDS: MINOXIDIL 2.5 MG TABLET PO SCH (10:16)
[2020-05-02] MEDS: LORazepam 0.5 MG TABLET PO PRN ×2 (11:23→18:52)
[2020-05-02 12:36] LABS: Hematocrit 47.2 % (42.0-52.0); Hemoglobin 15.7 gm/dL (13.5-18.0); Mean Cell Volume 89.7 fl (78-100); Mean Corpuscular Hemoglobin 29.8 pg (27-31); Mean Corpuscular Hgb Conc 33.3 g/dl (32-36); Mean Platelet Volume 8.8 fl (8-11.3); Neutrophil # 10.8 K/mm3 (1.3-6.0); Neutrophil % 78.3 % (42-75.0); Platelet Count 192 K/mm3 (150-450); Red Blood Count 5.26 M/mm3 (4.7-6.0); Red Cell Distribution Width 12.5 % (11.5-14.0); White Blood Count 13.8 K/mm3 (4.0-10.5)
[2020-05-02 12:46] LABS: Anion Gap 9.2 mmol/L (6.8-13.8); BUN/Creatinine Ratio 12.8 (9.0-21.6); Calcium * 9.9 mg/dL (7.9-10.9); Carbon Dioxide 34.9 mmol/L (24-32.6); Estimated Creat Clear 66.4; Potassium 3.1 mmol/L (3.4-4.6)
[2020-05-02] MEDS ORDERED: POTASSIUM CHLORIDE 10 MEQ TABLET.SA PO ONE (14:45)
--- NOTE | 2020-05-02 14:48 | PN ---
Progess Note - Interim Date: 05/02/20 Time: 14:46 Narrative: 05/02/20 14:49 His follow-up white blood cell count is still elevated but after reviewing this he has always been having leukocytosis since October 2019 except for once in November and once in December. This likely reflects progression of his ALS. We will be doing a urinalysis and UCS in case he has UTI. We will give him extra potassium today. In his last admission he was told about hospice by his admitting doctor. The was supposed to come in at lunchtime to talk about it however she had to stay because she was waiting for the company who supplies him with the oxygen to fix the oxygen concentrator. He says he takes 40 mg of lasix 2 tabs in the morning and 2 tabs in the afternoon. Addendum: Per case management is no longer able to take care of him at home and is talking with Hospice and is going to talk about it with the rest of the family efrain.
[2020-05-02 17:23] LABS: Urine Bilirubin Negative (NEGATIVE); Urine Blood Negative /ul (NEGATIVE); Urine Ketone Negative (NEGATIVE); Urine Nitrite Negative (NEGATIVE); Urine Protein Negative (NEGATIVE); Urine Urobilinogen Normal (NORMAL)
[2020-05-02 17:42] LABS: Urine Appearance Clear (CLEAR); Urine Bacteria TRACE; Urine Color Yellow; Urine RBC TRACE /hpf (0-5); Urine WBC TRACE /hpf (0-5)
[2020-05-02 17:43] LABS: Urine Hyaline Cast 0-5 /LPF
[2020-05-02] MEDS ORDERED: SIMVASTATIN 20 MG TABLET PO SCH (21:00)
[2020-05-02] MEDS ORDERED: MELATONIN PO SCH (21:00)
[2020-05-02] MEDS ORDERED: PYRIDOXINE HCL PO SCH (21:00)
[2020-05-02] MEDS ORDERED: ENOXAPARIN SODIUM 40 MG/0.4 ML SYRG SC SCH (21:00)
[2020-05-02] MEDS ORDERED: SENNOSIDES/DOCUSATE SODIUM 1 TAB TABLET PO SCH (21:00)
[2020-05-02] MEDS ORDERED: FLUTICASONE PROPIONATE 120 SPRAY INHALER NS SCH (21:00)
[2020-05-03] MEDS: LORazepam 0.5 MG TABLET PO PRN ×2 (01:47→08:48)
[2020-05-03 07:09] LABS: Hematocrit 45.2 % (42.0-52.0); Hemoglobin 14.9 gm/dL (13.5-18.0); Mean Corpuscular Hemoglobin 29.7 pg (27-31); Mean Platelet Volume 9.3 fl (8-11.3); Neutrophil # 9.8 K/mm3 (1.3-6.0); Neutrophil % 77.3 % (42-75.0); Platelet Count 205 K/mm3 (150-450); Red Blood Count 5.02 M/mm3 (4.7-6.0); Red Cell Distribution Width 12.5 % (11.5-14.0); White Blood Count 12.7 K/mm3 (4.0-10.5)
[2020-05-03 07:19] LABS: Anion Gap 7.3 mmol/L (6.8-13.8); BUN/Creatinine Ratio 17.7 (9.0-21.6); Carbon Dioxide 35.3 mmol/L (24-32.6); Estimated Creat Clear 68.7; Potassium 3.6 mmol/L (3.4-4.6)
--- NOTE | 2020-05-03 08:37 | PN ---
Progess Note - Interim Date: 05/03/20 Time: 08:35 Narrative: 05/03/20 08:36 Nick wants to be on Hospice care. They are awaiting [facility] response.
[2020-05-03] MEDS: MINOXIDIL 2.5 MG TABLET PO SCH (08:48)
[2020-05-03] MEDS: SERTRALINE HCL 50 MG TABLET PO SCH (08:50)
[2020-05-03] MEDS: METOPROLOL TARTRATE 25 MG TABLET PO SCH (08:50)
[2020-05-03] MEDS: LORATADINE 10 MG TABLET PO SCH (08:51)
[2020-05-03] MEDS: SPIRONOLACTONE 25 MG TABLET PO SCH (08:52)
[2020-05-03] MEDS ORDERED: FUROSEMIDE 10 MG/ML VIAL IV SCH (09:00)
[2020-05-03] MEDS ORDERED: LORazepam 0.5 MG TABLET PO PRN (10:57)
--- NOTE | 2020-05-03 13:18 | DS ---
(1) SOB (shortness of breath) Problem: Acute (2) Elevated brain natriuretic peptide (BNP) level Problem: Acute (3) Acute on chronic diastolic (congestive) heart failure Problem: Acute (4) Hypoxia Problem: Acute (5) HTN (hypertension) Problem: Chronic Qualifiers: (6) ALS (amyotrophic lateral sclerosis) Problem: Chronic (7) Leukocytosis Problem: Acute Date of Discharge:: 05/03/20 Hospital Course: Nick Stoll is a 74-year-old white male with past medical history of COPD, obstructive sleep apnea, essential hypertension, paroxysmal atrial fibrillation, peripheral arterial disease, who was admitted on 05/01/2020 for shortness of breath, elevated blood pressure and heart rate. 3 to 4 days prior to admission the patient started feeling short of breath associated with trace swelling of his legs. This was associated with orthopnea. He denied any chest pains, denied any fever or chills, admits to occasional coughing. On the night of admission the patient got tachycardic (140's) and his blood pressure ( 190's) went up associated with more shortness of breath so much so that his oxygen which he wears in the daytime at 3 L nasal cannula did not help. The EMS found his oxygen saturation only at 83%. As per emergency room notes the told them that the oxygen concentrator was also not working. His chest x-ray showed borderline cardiomegaly with mild pulmonary congestion, bibasilar atelectasis versus airspace disease. His white blood cell count was 12.2. His twelve-lead EKG showed sinus tachycardia of 106, right bundle branch block, possible left atrial enlargement, marked left axis deviation. His troponin was normal but his BNP was elevated at 2900+. He was admitted for congestive heart failure and diuresed. The patient got significantly better and was less short of breath however he said that he has not been able to do any significant activities anymore and is greatly dependent on his for activities of daily living. He continues to be short of breath and is nonambulant. He wants hospice care as he feels like his will not be able to take care of him anymore at home. His and the patient opted to do hospice care at [facility]. Procedures Performed: none Results and Findings: Pending Mircobiology Results 06/30/20 21:40 Blood Blood Culture - Preliminary NO GROWTH 24 HOURS 05/01/20 21:53 Blood Blood Culture - Preliminary NO GROWTH 24 HOURS Lab Pending Results 05/01/20 21:53: WBC 12.2 H, RBC 4.93, Hgb 14.9, Hct 44.8, MCV 90.9, MCH 30.2, MCHC 33.3, RDW 12.8, Plt Count 185, MPV 9.1, Immature Gran % (Auto) 1.90 H, Immature Gran # (Auto) 0.23 H, Neutrophils % 74.0, Lymphocytes % 13.6 L, Monocytes % 6.8, Eosinophils % 3.0, Basophils % 0.7, Nucleated RBC % 0.0, Neutrophils # 9.1 H, Lymphocytes # 1.66, Monocytes # 0.8, Eosinophils # 0.4, Absolute Basophils 0.1 05/01/20 21:53: Sodium 142, Plasma Sodium 143 H, Potassium 3.4, Chloride 102, Carbon Dioxide 34.4 H, Anion Gap 9.0, BUN 18, Creatinine 1.42 H, Est GFR (Non-Af Amer) 52 L, BUN/Creatinine Ratio 12.7, Random Glucose 190 H, Calcium 10.0, Calcium Adj for Albumin 9.8, Total Bilirubin 0.4, AST 20, ALT 31, Alkaline Phosphatase 72, Troponin I 0.018, B-Natriuretic Peptide 2927 H, Total Protein 7.5, Albumin 3.8 05/01/20 21:53: D-Dimer 0.58 H 05/01/20 21:53: Lactic Acid, Venous 1.8 05/02/20 12:30: WBC 13.8 H, RBC 5.26, Hgb 15.7, Hct 47.2, MCV 89.7, MCH 29.8, MCHC 33.3, RDW 12.5, Plt Count 192, MPV 8.8, Immature Gran % (Auto) 1.60 H, Immature Gran # (Auto) 0.22 H, Neutrophils % 78.3 H, Lymphocytes % 11.9 L, Monocytes % 5.9, Eosinophils % 1.7, Basophils % 0.6, Nucleated RBC % 0.0, Neutrophils # 10.8 H, Lymphocytes # 1.65, Monocytes # 0.8, Eosinophils # 0.2, Absolute Basophils 0.1 05/02/20 12:30: Sodium 143 H, Plasma Sodium 144 H, Potassium 3.1 L, Chloride 102, Carbon Dioxide 34.9 H, Anion Gap 9.2, BUN 15, Creatinine 1.17, Est GFR (Non-Af Amer) 65 D, BUN/Creatinine Ratio 12.8, Random Glucose 160 H, Calcium 9.9 05/02/20 17:05: Urine Color Yellow, Urine Appearance Clear, Urine pH 6.0, Ur Specific [place] 1.020, Urine Protein Negative, Urine Glucose (UA) Negative, Urine Ketones Negative, Urine Blood Negative, Urine Nitrate Negative, Urine Bilirubin Negative, Urine Urobilinogen Normal, Ur Leukocyte Esterase Negative, Urine RBC Trace, Urine WBC Trace, Ur Epithelial Cells Trace, Urine Bacteria Trace, Hyaline Casts 0-5 H, Urine Culture Comments No culture indicated 05/03/20 07:00: WBC 12.7 H, RBC 5.02, Hgb 14.9, Hct 45.2, MCV 90.0, MCH 29.7, MCHC 33.0, RDW 12.5, Plt Count 205, MPV 9.3, Immature Gran % (Auto) 1.30 H, Immature Gran # (Auto) 0.17 H, Neutrophils % 77.3 H, Lymphocytes % 11.0 L, Monocytes % 7.0, Eosinophils % 2.6, Basophils % 0.8, Nucleated RBC % 0.0, Neutrophils # 9.8 H, Lymphocytes # 1.40 L, Monocytes # 0.9, Eosinophils # 0.3, Absolute Basophils 0.1 05/03/20 07:00: Sodium 141, Plasma Sodium 142, Potassium 3.6, Chloride 102, Carbon Dioxide 35.3 H, Anion Gap 7.3, BUN 20, Creatinine 1.13, Est GFR (Non-Af Amer) 68, BUN/Creatinine Ratio 17.7, Random Glucose 160 H, Calcium 10.0 Discharge Location: [facility] Disposition: Hospice Home Home Health Agency: [facility] Hospice Condition: Poor Level of Care: ICF - Okay we will just put him Discharge Activity: Activity as tolerated Discharge Diet: General/regular food Referrals: Gallito Preston MD [Primary Care Provider] - Additional Patient Instructions (free text): [facility]- ICF, [facility] Hospice. Prescriptions (Any new or edited meds): LORazepam [Ativan] 0.5 mg PO Q2H PRN #30 tab PRN Reason: Anxiety Transmission Status: Received by [facility] LORazepam [Ativan] 1 mg PO HS #30 tab Transmission Status: Received by [facility] Furosemide [Lasix] 100 mg PO BID #60 Morphine Sulfate [Morphine Sulfate Conc. Oral Solution] 5 mg PO Q1H PRN #10 ml PRN Reason: Shortness Of Breath Transmission Status: Received by [facility] Potassium Chloride 20 meq PO BID #60 Complete Home Medications List: Complete Home Medication List: spironolactone 25 mg tablet 25 mg PO BID tab 06/09/18 metoprolol tartrate 50 mg tablet 25 mg PO BID tab 06/16/19 minoxidil 10 mg tablet 10 mg PO DAILY 10/13/19 Melatonin/Pyridoxine HCl (B6) [Melatonin 3 mg Tablet] 6 mg PO HS 11/09/19 Tiotropium [place] [Spiriva] 18 mcg INHALATION DAILY PRN 11/09/19 Sertraline HCl [Zoloft] 150 mg PO DAILY #45 tab 11/14/19 Loratadine [Claritin] 10 mg PO DAILY 02/27/20 Fluticasone Propionate [Flonase] 2 spray NS HS 05/02/20 Sennosides/Docusate Sodium [Stool Softener-Laxative Tablet] 1 ea PO HS 05/02/20 Soft Lens Rinse,Store Solution [Saline Sensitive Eyes] 1 ml EACHEYE PRN PRN 05/02/20 Furosemide [Lasix] 100 mg PO BID #60 05/03/20 LORazepam [Ativan] 0.5 mg PO Q2H PRN #30 tab 05/03/20 LORazepam [Ativan] 1 mg PO HS #30 tab 05/03/20 Morphine Sulfate [Morphine Sulfate Conc. Oral Solution] 5 mg PO Q1H PRN #10 ml 05/03/20 Potassium Chloride 20 meq PO BID #60 05/03/20
[2020-05-03 14:15] VITALS: BP 128/89
== END 2020-05-03 14:40 | disposition hospice, home (50) ==
LOC: ER 21:02 → MS 21:02
PROVIDERS: ADMIT Family Medicine; ATTEND Internal Medicine
CPT/HCPCS: 36415; 71010; 71045; 80048; 80053; 81001; 83519; 83605; 83880; 84484; 85025; 85379; 87040; 93005; 94660; 94760; 96365; 99285; C9803; U0001